=== PATIENT | male | born 1955 | race Asian ===

== ENCOUNTER 2021-04-29 22:34 | Inpatient (IN) | payer BC, MEDICARE, SELFPAY ==
--- NOTE | ~2021-04-29 | XR_ITS ---
EXAMINATION: XR PORTABLE CHEST CLINICAL INFORMATION: NG tube placement. COMPARISON: None. TECHNIQUE: AP portable upright view of the chest FINDINGS: NG tube tip terminates in the body of the stomach. Lungs are clear. No consolidation, pneumothorax, pleural effusion. Cardiac and mediastinal contours are normal. Old left-sided acromioclavicular separation injury. No acute osseous findings. XR/XR chest 1V IMPRESSION: NG tube tip terminates in the body of the stomach.
--- NOTE | ~2021-04-29 | CT_ITS ---
EXAMINATION: CT ABDOMEN AND PELVIS WITHOUT CONTRAST CLINICAL INFORMATION: Abdominal pain. no ostomy output, r/o SBO COMPARISON: None TECHNIQUE: Multidetector volumetric imaging was performed from the superior aspect of the liver through the pubic symphysis. Sagittal and coronal reformatted images were obtained on the technologist's workstation. This CT examination was performed using dose optimization techniques as appropriate, variously including the following: *Automated exposure control *Adjustment of mA and/or kV according to patient size (this includes techniques or standardized protocols for targeted exams where dose is matched to indication/reason for exam; i.e. extremities or head) *Use of iterative reconstruction technique DLP: 536 mGy-cm FINDINGS: LUNG BASES: Three-vessel calcific atherosclerotic disease at the coronary arteries. Mild cardiomegaly. LIVER, GALLBLADDER, AND BILIARY TREE: The liver is normal in size, shape, and attenuation. No focal hepatic lesion or biliary ductal dilatation is present. The gallbladder is unremarkable with no evidence of radiopaque gallstones, gallbladder wall thickening, or obvious pericholecystic inflammatory changes. PANCREAS: Unremarkable. SPLEEN: Unremarkable. ADRENAL GLANDS: Unremarkable. KIDNEYS AND URETERS: There is a staghorn calculus in a lower pole calyx at the left kidney measuring up to 1.7 cm in diameter with an attenuation value of 650 Hounsfield units. This is situated 7.4 cm deep to the skin surface of the left posterior mid axillary line. No additional left-sided renal calculi. A 3 mm calculus is evident in the lower pole the left kidney. No hydronephrosis or hydroureter. Mild bilateral perinephric fat stranding. Multiple small renal hypodensities are noted, incomplete characterized on these images images, measuring up to 1.3 cm in diameter (5 Hounsfield units). No recommend imaging follow-up. BLADDER: Unremarkable. GASTROINTESTINAL TRACT: There is marked dilatation of multiple loops of small bowel in the central abdomen and left abdomen extending to the level of the central pelvis. There is a focal transition point in the deep, central pelvis as seen on image 82/108 of series 3. There is fecalization this small bowel segment as well, measuring up to 4.9 cm in diameter with surrounding fat stranding. Air-fluid levels are evident at the dilated small bowel proximal to this. The distal small bowel and colon are decompressed. Anastomotic shaun are evident in the right lower quadrant. Appendix is normal. Left mid abdominal colostomy is unremarkable. There is fat stranding in the presacral region adjacent to the transition point of the small bowel loop in this region. A small amount of fluid is present in this region. There is a multilocular, nodular focus of mixed soft tissue and fluid attenuation. Presacral and distal sacral margin measuring 6 x 5.7 x 5.6 cm, potentially corresponding to the remnant of a known malignancy. This contacts the posterior margin of the prostate gland. ABDOMINAL WALL: There is a left midabdominal colostomy. No parastomal hernia. There is a ventral abdominal hernia with probable postsurgical changes of a hernia repair. Diastasis recti is noted. Calcifications along the anterior peritoneum in the ventral abdominal wall may be related to prior hernia repair. LYMPH NODES: No appreciable mesenteric or retroperitoneal adenopathy. VASCULAR: Calcific atherosclerosis is present in the abdominal aorta and iliac arteries. No aneurysmal dilatation. PELVIC VISCERA: As noted above, the lesion in the presacral space and abuts the posterior margin of the prostate gland. Prostate gland is normal in size. OSSEOUS STRUCTURES: There is absence of the coccyx and distal margin of the sacrum with a cystic lesion in the expected location of the coccyx. Mild to moderate multilevel degenerative disc disease. No fractures. Mild osteoarthritis in the hips. Calcific tendinitis of the greater trochanters. CT/CT abdomen pelvis wo con IMPRESSION: 1. High-grade small bowel obstruction with the transition point occurring in the deep, central pelvis adjacent to the sacral/presacral cystic and solid lesion. Recommend correlation with cancer history. This obstruction may be due to local involvement by the adjacent lesion or, alternatively, due to scarring and adhesions from posttreatment changes in this region. 2. Bilateral nephrolithiasis. No evidence of obstructive uropathy.
[2021-04-29 22:44] VITALS: BP 138/91; PULSE 80; RESP 18; TEMP 36.6; O2SAT 100; BMI 24.3
[2021-04-29 23:01] LABS: Basophils Percent Auto 0.3 % (0-2); Eosinophils Percent Auto 0.1 % (0-4); Hematocrit 36.5 % (42.0-52.0); Hemoglobin 12.3 g/dl (14.0-18.0); Imm Gran Abs Auto 0.03 X10*3/uL (0.00-0.03); Imm Gran Pct Auto 0.3 % (0.0-0.4); Lymphocytes Absolute Auto 0.3 X10*3/uL (1.2-4.9); Lymphocytes Percent Auto 2.6 % (20-40); MANUAL DIFF FLAG SCAN; Mean Corpuscular HGB Conc 33.7 g/dl (31.0-36.0); Mean Corpuscular Hemoglobin 31.9 pg (27.0-33.0); Mean Corpuscular Volume 94.8 fL (80.0-98.0); Mean Platelet Volume 10.7 fL (9.4-12.4); Monocytes Absolute Auto 0.7 X10*3/uL (0.1-1.2); Monocytes Percent Auto 5.6 % (2-11); Neutrophils Absolute Auto 10.6 x10*3/uL (2.0-8.3); Neutrophils Percent Auto 91.1 % (45-73); Platelet Count 160 X10*3/uL (160-400); Red Blood Count 3.85 X10*6/uL (4.60-5.80); Red Cell Distribution Width 12.1 % (11.0-16.0); SCAN SMEAR FLAG 1; White Blood Count 11.6 X10*3/uL (4.8-10.8)
[2021-04-29 23:17] LABS: Alanine Aminotransferase 17 U/L (0-40); Albumin Level 4.6 g/dL (3.5-5.0); Alkaline Phosphatase 62 U/L (39-117); Anion Gap 17 (12-20); Aspartate Amino Transferase 16 U/L (5-37); Bilirubin Direct 0.3 mg/dL (0.0-0.5); Bilirubin Total 0.8 mg/dL (0.0-1.0); Blood Urea Nitrogen 41 mg/dL (9-16); Calcium 10.2 mg/dL (8.4-10.2); Carbon Dioxide 24 mmol/L (22-29); Chloride 102 mmol/L (96-108); Creatinine Clr Calc Pharmacy 43.5; Estimated Glomerular Filt Rate 45; Glucose Random 205 mg/dL (60-115); Lipase 18 U/L (8-78); Sodium 138 mmol/L (135-145); Total Protein 7.1 g/dL (6.5-8.0)
[2021-04-29 23:23] LABS: SLIDE REVIEW VERIFIED
[2021-04-30] VITALS (8 sets, daily range): BP systolic 122–179; BP diastolic 69–89; PULSE 70–98; RESP 16–20; TEMP 36.5–37.1; O2SAT 96–100
--- NOTE | 2021-04-30 | ECG_ITS ---
Test Reason : ABD PAIN Blood Pressure : / mmHG Vent. Rate : 094 BPM Atrial Rate : 094 BPM P-R Int : 152 ms QRS Dur : 092 ms QT Int : 340 ms P-R-T Axes : 033 -07 048 degrees QTc Int : 425 ms Normal sinus rhythm Minimal voltage criteria for LVH, may be normal variant ( Rolf product ) Borderline ECG When compared with ECG of 25-NOV-2006 20:24, No significant change was found Referred By: Delvin Arce Electronically Signed By:JOSELUIS NICHOLAS MD
--- NOTE | 2021-04-30 00:55 | ED.ABDPAIN ---
HPI - Abdominal Pain General Chief Complaint: Abdominal Pain Stated Complaint: constipation Time Seen by Provider: 04/30/21 00:53 Source: patient Mode of arrival: ambulatory History of Present Illness HPI narrative: 65-year-old male with history of hypertension, diabetes, ostomy after treatment for colon CA in 2008 presents with onset of primarily nausea with 1 episode of vomiting associated with his abdominal discomfort that he describes as crampy and intermittent, and no output in his ostomy (no feces, no air). Otherwise, he denies any fever, chills, shortness of breath, chest pain/palpitations. Related Data Allergies Allergy/AdvReac Type Severity Reaction Status Date / Time No Known Allergies Allergy Verified 04/29/21 22:49 Review of Systems Review of Systems Pertinent positives and negatives as stated in HPI 10 point review of systems is otherwise negative. PMFSH Past Medical History Source: nursing notes reviewed Medical History Colorectal cancer Diabetes HTN (hypertension) Social History Social History Advance Directives: No Physical Exam ED Vital Signs: Vital Signs - 24 hr 04/29/21 22:44 04/30/21 00:41 04/30/21 01:00 Temperature 97.9 F 98.8 F Pulse Rate 80 70 70 Respiratory Rate 18 16 16 Blood Pressure 138/91 H 179/89 H 156/85 H Pulse Oximetry 100 100 04/30/21 02:50 04/30/21 02:52 Temperature Pulse Rate 81 Respiratory Rate 16 16 Blood Pressure 166/83 H Pulse Oximetry 99 BMI result Body Mass Index 24.3 VITAL SIGNS: Reviewed. GENERAL: Well developed, well nourished, in no acute distress. HEAD: Normocephalic/atraumatic EYES: PERRLA, EOMI EARS: Ext canals without abnormality, TMs non-bulging and non-erythematous NOSE: Nares patent bilateral OROPHARYNX: no oral lesions noted, posterior pharynx clear LUNGS: Normal breath sounds. No adventitious sounds or accessory muscle use. SpO2<100> CARDIOVASCULAR: Regular rate and rhythm without noted murmurs ABDOMEN: Soft, tenderness in mid abdomen without rebound non-distended with bowel sounds, ostomy with no stool or air in the bag SKIN: Inspection of the skin reveals no rashes NEUROLOGIC: Alert and oriented x 4. Strength and sensation to light touch were grossly intact x 4. Course Course Course Narrative: 65-year-old male with history and clinical presentation consistent with most likely SBO and doubt cholecystitis or gastritis. Review of all investigations consistent with SBO, lactic acid is likely secondary to the SBO and leukocytosis is consistent with stress response. NG was placed and on review of imaging is in good location. Case discussed with Dr. Wong who will review all investigations and accepts admission. MDM - Abdominal Pain Lab Data Result diagrams: 04/29/21 22:56 04/29/21 22:56 Labs: Lab Results 04/29/21 04/29/21 04/30/21 Range/Units 22:56 22:56 01:06 WBC 11.6 H (4.8-10.8) X10*3/uL RBC 3.85 L (4.60-5.80) X10*6/uL Hgb 12.3 L (14.0-18.0) g/dl Hct 36.5 L (42.0-52.0) % MCV 94.8 (80.0-98.0) fL MCH 31.9 (27.0-33.0) pg MCHC 33.7 (31.0-36.0) g/dl RDW 12.1 (11.0-16.0) % Plt Count 160 (160-400) X10*3/uL MPV 10.7 (9.4-12.4) fL Immature Gran % (Auto) 0.3 (0.0-0.4) % Neut % (Auto) 91.1 H (45-73) % Lymph % (Auto) 2.6 L (20-40) % [place] % (Auto) 5.6 (2-11) % Eos % (Auto) 0.1 (0-4) % Baso % (Auto) 0.3 (0-2) % Lymph # (Auto) 0.3 L (1.2-4.9) X10*3/uL [place] # (Auto) 0.7 (0.1-1.2) X10*3/uL Eos # (Auto) 0.0 (0.0-0.4) X10*3/uL Baso # (Auto) 0.0 (0.0-0.2) X10*3/uL Abs Immat Gran (auto) 0.03 (0.00-0.03) X10*3/uL Absolute Neuts (auto) 10.6 H (2.0-8.3) x10*3/uL Absolute Nucleated RBC 0.000 (0.0-0.012) X10*3/uL Nucleated RBC % (auto) 0.0 (0.0-0.2) /100WBC Smear Tech's Comments VERIFIED Sodium 138 (135-145) mmol/L Potassium 5.0 (3.3-5.1) mmol/L Chloride 102 (96-108) mmol/L Carbon Dioxide 24 (22-29) mmol/L Anion Gap 17 (12-20) BUN 41 H (9-16) mg/dL Creatinine 1.56 H (0.5-1.4) mg/dL Estim Creat Clear Calc 43.5 Estimated GFR 45 Random Glucose 205 H (60-115) mg/dL Lactic Acid (0.5-2.0) mmol/L Calcium 10.2 (8.4-10.2) mg/dL Total Bilirubin 0.8 (0.0-1.0) mg/dL Direct Bilirubin 0.3 (0.0-0.5) mg/dL AST 16 (5-37) U/L ALT 17 (0-40) U/L Alkaline Phosphatase 62 (39-117) U/L Total Protein 7.1 (6.5-8.0) g/dL Albumin 4.6 (3.5-5.0) g/dL Lipase 18 (8-78) U/L Urine Color Urine Appearance Urine pH (5.0-8.0) Ur Specific [place] (1.005-1.025) Urine Protein (NEG-TRACE) MG/DL Urine Glucose (UA) (NEG) MG/DL Urine Ketones (NEG) MG/DL Urine Blood (NEG) Urine Nitrite (NEG) Ur Leukocyte Esterase (NEG) COVID-19 ([facility]REE) Negative (Negative) COVID-19 Clin Com See Note 04/30/21 04/30/21 Range/Units 01:09 03:29 WBC (4.8-10.8) X10*3/uL RBC (4.60-5.80) X10*6/uL Hgb (14.0-18.0) g/dl Hct (42.0-52.0) % MCV (80.0-98.0) fL MCH (27.0-33.0) pg MCHC (31.0-36.0) g/dl RDW (11.0-16.0) % Plt Count (160-400) X10*3/uL MPV (9.4-12.4) fL Immature Gran % (Auto) (0.0-0.4) % Neut % (Auto) (45-73) % Lymph % (Auto) (20-40) % [place] % (Auto) (2-11) % Eos % (Auto) (0-4) % Baso % (Auto) (0-2) % Lymph # (Auto) (1.2-4.9) X10*3/uL [place] # (Auto) (0.1-1.2) X10*3/uL Eos # (Auto) (0.0-0.4) X10*3/uL Baso # (Auto) (0.0-0.2) X10*3/uL Abs Immat Gran (auto) (0.00-0.03) X10*3/uL Absolute Neuts (auto) (2.0-8.3) x10*3/uL Absolute Nucleated RBC (0.0-0.012) X10*3/uL Nucleated RBC % (auto) (0.0-0.2) /100WBC Smear Tech's Comments Sodium (135-145) mmol/L Potassium (3.3-5.1) mmol/L Chloride (96-108) mmol/L Carbon Dioxide (22-29) mmol/L Anion Gap (12-20) BUN (9-16) mg/dL Creatinine (0.5-1.4) mg/dL Estim Creat Clear Calc Estimated GFR Random Glucose (60-115) mg/dL Lactic Acid 1.7 (0.5-2.0) mmol/L Calcium (8.4-10.2) mg/dL Total Bilirubin (0.0-1.0) mg/dL Direct Bilirubin (0.0-0.5) mg/dL AST (5-37) U/L ALT (0-40) U/L Alkaline Phosphatase (39-117) U/L Total Protein (6.5-8.0) g/dL Albumin (3.5-5.0) g/dL Lipase (8-78) U/L Urine Color YELLOW Urine Appearance CLEAR Urine pH 5.5 (5.0-8.0) Ur Specific [place] 1.025 (1.005-1.025) Urine Protein TRACE (NEG-TRACE) MG/DL Urine Glucose (UA) NEG (NEG) MG/DL Urine Ketones NEG (NEG) MG/DL Urine Blood NEG (NEG) Urine Nitrite NEG (NEG) Ur Leukocyte Esterase NEG (NEG) COVID-19 (ANDREE) (Negative) COVID-19 Clin Com Discharge Plan Discharge Clinical Impression: Small bowel obstruction, Diabetes, Hypertension Patient Disposition: Admitted As Inpatient
[2021-04-30] MEDS: 0.9 % Sodium Chloride 1,000 ML 999 ML IV (01:13)
[2021-04-30 01:25] LABS: Lactic Acid 1.7 mmol/L (0.5-2.0)
[2021-04-30 01:33] LABS: COVID-19 Test Negative (Negative)
[2021-04-30] MEDS: HYDROmorphone HCl 0.5 MG/0.5 ML SYRINGE 0.25 MG IVPUSH (02:52)
[2021-04-30] MEDS: ondansetron HCL 4 MG/2 ML VIAL IVPUSH ×2 (03:01→15:05)
--- NOTE | 2021-04-30 03:16 | PC.NURSE ---
NG tube successfully placed by Roosevelt MELENDREZ, Karen MELENDREZ and Yemi MELENDREZ. Pt tolerated procedure well. XR ordered to confirm NG tube placement.
[2021-04-30 03:42] LABS: Appearance Urine CLEAR; Color Urine YELLOW; Glucose Urine UA NEG (NEG); Leukocyte Esterase Urine NEG (NEG); Nitrite Urine NEG (NEG); PH 5.5 (5.0-8.0); Specific Gravity - Urine 1.025 (1.005-1.025); Urine Blood NEG (NEG); Urine Ketones NEG (NEG); Urine Protein TRACE MG/DL (NEG-TRACE)
[2021-04-30] MEDS: 0.9 % Sodium Chloride 1,000 ML 100 ML IVCONT ×2 (04:17→16:07)
--- NOTE | 2021-04-30 05:00 | PC.NURSE ---
plan is for pt to be admitted to hospital. pt aware of plan of care and has no questions or concerns at this time
[2021-04-30] MEDS: Morphine Sulfate 2 MG/ML CARTRIDGE 0.5 MG IVPUSH (05:49)
--- NOTE | 2021-04-30 07:57 | PC.NURSE ---
Pt alert and oriented, reports pain 1/10 at this time, intermittent in nature. NG to right nare patent drained 800ml of green gastric contents. Able to stand to void. NS at 100ml/hr. Skin color normal for ethnicity, warm and dry. Agreeable with plan ofor admission. Dr Wong to bedside this morning. Pt continues to be NPO, ice chips given.
--- NOTE | 2021-04-30 08:08 | PHA.MEDREC ---
Pharmacy Consult ? Medication Reconciliation Pharmacy has reviewed the medication reconciliation completed by Yemi. Patient is also on latanoprost, multivitamin and Preservision. Medications added to home list. Charmaine Toribio, KaroD
--- NOTE | 2021-04-30 08:53 | P.HPGS_ITS ---
History of Present Illness History of Present Illness Date of Service: 05/01/21 Chief complaint: SBO, CP Narrative: Paul Bella is a 65 year old male who came in last night because of diffuse abdominal pain. He says he says this started about 36 hours ago. He describes his crampy but seemed to get worse yesterday. He has a history of rectal cancer and had undergone an APR in [facility] in [place] in 2008. He had undergone neoadjuvant chemotherapy and radiation prior to that. He says that he had multiple rectal surgeries 3rd procedure because of complications with the perineal wound. He said he has had no significant output from his colostomy since yesterday. He said he had been following an oncologist in [facility] and says that he had seen him the last time probably about 3 months ago. He says that he seemed to have been doing well for so many years. He also says that he has had history of MIs in the past. He says he is being followed by a perinatal instructor in [place]. Review of Systems Constitutional: Constitutional: Denies chills and Denies fever(s) Cardiovascular: Cardiovascular: Denies chest pain, Denies dyspnea and Denies dyspnea on exertion Respiratory: Respiratory: Denies cough, Denies dyspnea and Denies dyspnea on exertion Gastrointestinal: Gastrointestinal: Denies hematochezia and Denies change in bowel habits Comments: Has end-colostomy Genitourinary: Genitourinary: Denies hematuria and Denies difficulty urinating Musculoskeletal: Musculoskeletal: Denies back pain and Denies limited range of motion Neurologic: Denies focal weakness and Denies convulsions Psychiatric: Psychiatric: Denies depression and Denies mood swings [facility] Past Medical History Medical History (Updated 04/30/21 @ 08:57 by Lorne Wong MD) Colorectal cancer Coronary artery disease Diabetes History of rectal cancer HTN (hypertension) Surgical History Surgical History (Updated 04/30/21 @ 08:58 by Lorne Wong MD) History of rectal surgery Social History Social History (Updated 04/30/21 @ 09:21 by Delvin Arce MD) Alcohol intake: current Alcohol intake frequency: holidays/special occasions only Patient Tobacco Use Status: Never used Tobacco Use of substances other than those prescribed or required for medical reasons: No Advance Directives: No service: No Current occupational status: employed Meds Allergies Allergy/AdvReac Type Severity Reaction Status Date / Time No Known Allergies Allergy Verified 04/29/21 22:49 Active Medications: Current Medications Sodium Chloride (Ns) 1,000 mls @ 100 mls/hr IVCONT .Q10H [facility] Last Admin: 04/30/21 04:17 Dose: 100 mls/hr Documented by: Morphine Sulfate (Morphine Sulfate 2 Mg/Ml Cartridge) 0.5 mg IVPUSH Q4H PRN; Protocol PRN Reason: Pain, Severe (Pain Scale 7-10) Last Admin: 04/30/21 05:49 Dose: 0.5 mg Documented by: Pharmacy Consult (Consult Rx Perform Med Rec) 1 each MISCELLANE ONCE PRN PRN Reason: Consult order Sodium Chloride (0.9 % Sodium Chloride Flush 3 Ml Syringe) 3 ml IVFLUSH QSHIFT [facility] Last Admin: 04/30/21 07:59 Dose: Not Given Documented by: Home Medications Medication Instructions Recorded Confirmed Last Taken Type aspirin 81 mg tablet 81 mg PO DAILY 04/30/21 04/30/21 1 Day Ago History ~04/29/21 atorvastatin 40 mg tablet 1 tab PO DAILY 04/30/21 04/30/21 1 Day Ago History ~04/29/21 clopidogrel 75 mg tablet 1 tab PO DAILY 04/30/21 04/30/21 1 Day Ago History ~04/29/21 latanoprost 0.005 % eye drops 1 drp OPHTHALMIC (EYE) BEDTIME 04/30/21 04/30/21 04/28/21 History lisinopril 40 mg tablet 1 tab PO DAILY 04/30/21 04/30/21 1 Day Ago History ~04/29/21 metformin 1,000 mg tablet 1 tab PO BID 04/30/21 04/30/21 1 Day Ago History ~04/29/21 metoprolol tartrate 50 mg tablet 25 mg PO QPM 04/30/21 04/30/21 1 Day Ago History ~04/29/21 multivitamin 1 tab PO DAILY 04/30/21 04/30/21 04/29/21 History sitagliptin 100 mg tablet (Januvia) 1 tab PO BEDTIME 04/30/21 04/30/21 04/28/21 History vitamins A,C,K-mifj-tezbkt 14,320 1 cap PO BID 04/30/21 04/30/21 04/29/21 History unit-226 mg-200 unit capsule (PreserVision AREDS) Physical Exam Vital Signs: Vital Signs: Last Vital Signs Temp 98.8 F 04/30/21 00:41 Pulse 92 04/30/21 04:00 Resp 16 04/30/21 04:00 BP 166/83 H 04/30/21 02:50 Pulse Ox 96 04/30/21 04:00 BMI result Body Mass Index 24.3 Const: Other: NG tube in place General: comfortable and no acute distress Orientation/consciousness: patient oriented x3 Neck: Neck: Yes no lymphadenopathy Resp: Auscultation: clear to auscultation bilaterally Cardio: Rhythm: regular rhythm GI: Other: Abdomen minimally distended now, Colostomy on the left side, 2nd output Palpation (GI): Soft to palpation, nontender (Mild diffuse), no guarding and not rigid Neuro: General: patient oriented x3 Results Results Labs: Short CBC 04/29/21 Range/Units 22:56 WBC 11.6 H (4.8-10.8) X10*3/uL Hgb 12.3 L (14.0-18.0) g/dl Hct 36.5 L (42.0-52.0) % Plt Count 160 (160-400) X10*3/uL BMP 04/29/21 22:56 Sodium 138 Potassium 5.0 Chloride 102 Carbon Dioxide 24 BUN 41 H Creatinine 1.56 H Calcium 10.2 Liver Function 04/29/21 Range/Units 22:56 Total Bilirubin 0.8 (0.0-1.0) mg/dL Direct Bilirubin 0.3 (0.0-0.5) mg/dL AST 16 (5-37) U/L ALT 17 (0-40) U/L Alkaline Phosphatase 62 (39-117) U/L Albumin 4.6 (3.5-5.0) g/dL Urine 04/30/21 Range/Units 03:29 Urine Color YELLOW Urine Appearance CLEAR Urine pH 5.5 (5.0-8.0) Ur Specific [place] 1.025 (1.005-1.025) Urine Protein TRACE (NEG-TRACE) MG/DL Urine Glucose (UA) NEG (NEG) MG/DL Abdomen CT scan report/results: report reviewed and image reviewed CT scan - pelvis: report reviewed and image reviewed Assessment and Plan (1) Small bowel obstruction: Status: Acute Review of his CT scan shows that he has small-bowel obstruction with fecalization because of a loop of distal small bowel that is tethered to what appears to be a tumor in the presacral area. This may represent a recurrence of his rectal cancer. He has improved significantly after NG tube insertion and had large amounts of output. He appears more comfortable now and says he only has some periodic waves of pain. He may require surgery if thisobstruction does not resolve especially as this seems to be in secondary to a recurrence of his rectal malignancy. His CEA level is however normal. He may need to have a loop ileostomy proximal to the point of obstruction if this does not resolve, and if we are unable to release these small bowel loops from the pelvis. In the meantime, we will hydrate him aggressively as his BUN and creatinine are elevated. I have consulted the hospitalist service because of his no medical problems. I am going to reach out to his oncologist to get his records from [facility] although he had his surgery in [address] [facility]. I had a long discussion with him about the plan as above. He is comfortable with this and he seems to understand well. He said he is hoping that he will be able to go home or any surgery if possible. He has a history of coronary disease and does describe some occasional chest pain. He says he is scheduled to have a stress test in [place]. As per the hospitalist, we consult the perinatal instructor here. (2) History of rectal surgery: Status: Acute Quality Stroke Does the patient have a stroke diagnosis?: No VTE Prior VTE?: No VTE Risk Level:: Medical - moderate - high VTE Device Contraindication: N/A - Device Ordered VTE Drug Contraindication: N/A - Med Ordered Procedures Date of Service Date of Service: 04/30/21
--- NOTE | 2021-04-30 09:16 | P.CONHOSP_ITS ---
History of Present Illness Data of Consult Service Date: 04/30/21 Primary Care Provider: Julio Cesar Swan MD HPI Reason for consult: medical management, history of cad, dm, htn This is a 65 year old male with a PMH of Colorectal Ca s/p resection in 2008, CAD s/p MO + PCI in the with 2 stents, DM, HLD, HTN who presents to the hospital with complaints of abdominal pain, nausea and vomiting of several days duration. He has been diagnosed with a high grade small bowel obstruction secondary - possibly secondary to a reoccurance of his cancer. He has had a NG tube placed and has been admitted under the general surgical services. Medical consult requested for co-management of his chronic medical issues. Patient is seen and examined in the ED. He reports that his abdominal symptoms have improved after placement of his NG tube. In regards to his cardiac history, he reports that he had an MO and has 2 stents placed in the . He reports that he is on aspirin/plavix. He further expands that over the last 1 year, he has been having exertional chest pain lasting about 1-2 minutes and resolves after he rests. He reports that he has had a recent EKG done as an outpatient and was scheduled for a stress test this week. He denies any current chest pain. Review of Systems Review of Systems: negative except HPI [facility] Medical History (Updated 04/30/21 @ 08:57 by Lorne Wong MD) Colorectal cancer Coronary artery disease Diabetes History of rectal cancer HTN (hypertension) Surgical History (Updated 04/30/21 @ 08:58 by Lorne Wong MD) History of rectal surgery Social History (Updated 04/30/21 @ 09:21 by Delvin Arce MD) Alcohol intake: current Alcohol intake frequency: holidays/special occasions only Patient Tobacco Use Status: Never used Tobacco Use of substances other than those prescribed or required for medical reasons: No Advance Directives: No Meds Allergies Allergy/AdvReac Type Severity Reaction Status Date / Time No Known Allergies Allergy Verified 04/29/21 22:49 Active Medications: Current Medications Sodium Chloride (Ns) 1,000 mls @ 100 mls/hr IVCONT .Q10H [facility] Last Admin: 04/30/21 04:17 Dose: 100 mls/hr Documented by: Morphine Sulfate (Morphine Sulfate 2 Mg/Ml Cartridge) 0.5 mg IVPUSH Q4H PRN; Protocol PRN Reason: Pain, Severe (Pain Scale 7-10) Last Admin: 04/30/21 05:49 Dose: 0.5 mg Documented by: Pharmacy Consult (Consult Rx Perform Med Rec) 1 each MISCELLANE ONCE PRN PRN Reason: Consult order Sodium Chloride (0.9 % Sodium Chloride Flush 3 Ml Syringe) 3 ml IVFLUSH QSHIFT [facility] Last Admin: 04/30/21 07:59 Dose: Not Given Documented by: Home Medications Medication Instructions Recorded Confirmed Last Taken Type aspirin 81 mg tablet 81 mg PO DAILY 04/30/21 04/30/21 1 Day Ago History ~04/29/21 atorvastatin 40 mg tablet 1 tab PO DAILY 04/30/21 04/30/21 1 Day Ago History ~04/29/21 clopidogrel 75 mg tablet 1 tab PO DAILY 04/30/21 04/30/21 1 Day Ago History ~04/29/21 latanoprost 0.005 % eye drops 1 drp OPHTHALMIC (EYE) BEDTIME 04/30/21 04/30/21 04/28/21 History lisinopril 40 mg tablet 1 tab PO DAILY 04/30/21 04/30/21 1 Day Ago History ~04/29/21 metformin 1,000 mg tablet 1 tab PO BID 04/30/21 04/30/21 1 Day Ago History ~04/29/21 metoprolol tartrate 50 mg tablet 25 mg PO QPM 04/30/21 04/30/21 1 Day Ago History ~04/29/21 multivitamin 1 tab PO DAILY 04/30/21 04/30/21 04/29/21 History sitagliptin 100 mg tablet (Januvia) 1 tab PO BEDTIME 04/30/21 04/30/21 04/28/21 History vitamins A,C,Y-lszx-orwneu 14,320 1 cap PO BID 04/30/21 04/30/21 04/29/21 History unit-226 mg-200 unit capsule (PreserVision AREDS) Physical Exam Vital Signs and Narrative: Vital Signs: Last Vital Signs Temp 98.8 F 04/30/21 00:41 Pulse 92 04/30/21 04:00 Resp 16 04/30/21 04:00 BP 166/83 H 04/30/21 02:50 Pulse Ox 96 04/30/21 04:00 BMI result Body Mass Index 24.3 Const: Other: Constitutional - Awake and Alert, No apparent distress Eyes - PERRLA, EOMI Cardiovascular - S1S2, RRR, No edema Respiratory - Normal lung expansion, Normal respiratory effort, No respiratory distress, CTA bilaterally Gastrointestinal - mildly distended with minimal diffuse tenderness; L sided colostomy; NG with bilious output - No CVA tenderness Extremities - no calf tenderness bilaterally, no swelling Musculoskeletal - Normal inspection, normal ROM Skin - Warm/Dry Neurological - Alert & oriented x3, No focal deficit Psychological - Appropriate affect Results Labs CBC and Chem 7: 04/29/21 22:56 04/29/21 22:56 Labs: Laboratory Results - last 24 hr 04/29/21 04/29/21 04/30/21 22:56 22:56 01:06 MCV 94.8 MCH 31.9 MCHC 33.7 RDW 12.1 Plt Count 160 MPV 10.7 Immature Gran % (Auto) 0.3 Neut % (Auto) 91.1 H Lymph % (Auto) 2.6 L [place] % (Auto) 5.6 Eos % (Auto) 0.1 Baso % (Auto) 0.3 Lymph # (Auto) 0.3 L [place] # (Auto) 0.7 Eos # (Auto) 0.0 Baso # (Auto) 0.0 Abs Immat Gran (auto) 0.03 Absolute Neuts (auto) 10.6 H Absolute Nucleated RBC 0.000 Nucleated RBC % (auto) 0.0 Smear Tech's Comments VERIFIED Anion Gap 17 Estim Creat Clear Calc 43.5 Estimated GFR 45 Random Glucose 205 H Lactic Acid Calcium 10.2 Total Bilirubin 0.8 Direct Bilirubin 0.3 AST 16 ALT 17 Alkaline Phosphatase 62 Total Protein 7.1 Albumin 4.6 Lipase 18 Carcinoembryonic Ag 1.40 Urine Color Urine Appearance Urine pH Ur Specific [place] Urine Protein Urine Glucose (UA) Urine Ketones Urine Blood Urine Nitrite Ur Leukocyte Esterase COVID-19 (ANDREE) Negative COVID-19 Clin Com See Note 04/30/21 04/30/21 01:09 03:29 MCV MCH MCHC RDW Plt Count MPV Immature Gran % (Auto) Neut % (Auto) Lymph % (Auto) [place] % (Auto) Eos % (Auto) Baso % (Auto) Lymph # (Auto) [place] # (Auto) Eos # (Auto) Baso # (Auto) Abs Immat Gran (auto) Absolute Neuts (auto) Absolute Nucleated RBC Nucleated RBC % (auto) Smear Tech's Comments Anion Gap Estim Creat Clear Calc Estimated GFR Random Glucose Lactic Acid 1.7 Calcium Total Bilirubin Direct Bilirubin AST ALT Alkaline Phosphatase Total Protein Albumin Lipase Carcinoembryonic Ag Urine Color YELLOW Urine Appearance CLEAR Urine pH 5.5 Ur Specific [place] 1.025 Urine Protein TRACE Urine Glucose (UA) NEG Urine Ketones NEG Urine Blood NEG Urine Nitrite NEG Ur Leukocyte Esterase NEG COVID-19 (ANDREE) COVID-19 Clin Com Imaging Radiologist's Impressions: Impressions Abdomen/Pelvis CT 04/30/21 02:35 IMPRESSION: 1. High-grade small bowel obstruction with the transition point occurring in the deep, central pelvis adjacent to the sacral/presacral cystic and solid lesion. Recommend correlation with cancer history. This obstruction may be due to local involvement by the adjacent lesion or, alternatively, due to scarring and adhesions from posttreatment changes in this region. 2. Bilateral nephrolithiasis. No evidence of obstructive uropathy. Chest X-Ray 04/30/21 03:20 IMPRESSION: NG tube tip terminates in the body of the stomach. Assessment and Plan (1) Coronary artery disease: Status: Acute (2) Diabetes: Status: Acute (3) Hypertension: Status: Acute Plan This is a 65 year old male with a PMH of Colorectal Ca s/p resection in 2008, CAD s/p MO + PCI in the with 2 stents, DM, HLD, HTN who presents to the hospital with complaints of abdominal pain, nausea and vomiting of several days duration. He has been diagnosed with a high grade small bowel obstruction secondary - possibly secondary to a reoccurance of his cancer. Medical consult requested for medical management. 1. CAD s/p MO + PCI with 2 stents (in the ) He endorses anginal symptoms x 1 year and was planned for outpatient stress test Given that he may need operative repair of his SBO -- will get cardiology consult for pre-operative optimization Will check Echo and EKG To resume DAPT when able (currently has NG in place) 2. DM on oral meds at home, which will be held POC q6 hours with sliding scale 3. HTN mildly elevated monitor for now and if needed will order IV meds 4. High grade SBO suspected secondary to pelvic mass (possible reoccurrence of his colorectal Ca) mgmt per Gen Surg. Will Follow along with you.
--- NOTE | 2021-04-30 09:58 | MHC.CM.PN ---
Met with patient in regards to discharge planning. Patient lives alone, ambulates independently and had no services prior to coming to the hospital. No services anticipated to be needed because patient is not homebound. PCP verified. No HCP on file. Information provided about HCP. Patient not interested in completing one at this time. Patient received 3 Pfizer vaccines. Patient will arrange transport home when medically stable. Continue to monitor for d/c needs.
--- NOTE | 2021-04-30 13:19 | P.CONCA_ITS ---
History of Present Illness History of Present Illness Date of Service: 04/30/21 Chief complaint: SBO, CP Narrative: 65-year-old gentleman with background history of coronary disease with angioplasty in . He also has history of colon cancer started for her ejection with colostomy. He is presenting with small-bowel obstruction with abdominal pain and nausea vomiting. He has an NG tube in place right now. Been experiencing some exertional chest pain. This happens at extreme exercise when he lifts heavy weight. he was being worked up by [facility] for this. He did not have any change in pattern of his angina and mostly this is stable angina. In particular no current at rest. [facility] Past Medical History Medical History (Updated 04/30/21 @ 08:57 by Lorne Wong MD) Colorectal cancer Coronary artery disease Diabetes History of rectal cancer HTN (hypertension) Surgical History Surgical History (Updated 04/30/21 @ 08:58 by Lorne Wong MD) History of rectal surgery Social History Social History (Updated 04/30/21 @ 09:21 by Delvin Arce MD) Alcohol intake: current Alcohol intake frequency: holidays/special occasions only Patient Tobacco Use Status: Never used Tobacco Use of substances other than those prescribed or required for medical reasons: No Advance Directives: No service: No Current occupational status: employed Meds Allergies Allergy/AdvReac Type Severity Reaction Status Date / Time No Known Allergies Allergy Verified 04/29/21 22:49 Active Medications: Current Medications Sodium Chloride (Ns) 1,000 mls @ 100 mls/hr IVCONT .Q10H [facility] Last Admin: 04/30/21 04:17 Dose: 100 mls/hr Documented by: Morphine Sulfate (Morphine Sulfate 2 Mg/Ml Cartridge) 0.5 mg IVPUSH Q4H PRN; Protocol PRN Reason: Pain, Severe (Pain Scale 7-10) Last Admin: 04/30/21 05:49 Dose: 0.5 mg Documented by: Pharmacy Consult (Consult Rx Perform Med Rec) 1 each MISCELLANE ONCE PRN PRN Reason: Consult order Sodium Chloride (0.9 % Sodium Chloride Flush 3 Ml Syringe) 3 ml IVFLUSH QSHIFT [facility] Last Admin: 04/30/21 07:59 Dose: Not Given Documented by: Home Medications Medication Instructions Recorded Confirmed Last Taken Type aspirin 81 mg tablet 81 mg PO DAILY 04/30/21 04/30/21 1 Day Ago History ~04/29/21 atorvastatin 40 mg tablet 1 tab PO DAILY 04/30/21 04/30/21 1 Day Ago History ~04/29/21 clopidogrel 75 mg tablet 1 tab PO DAILY 04/30/21 04/30/21 1 Day Ago History ~04/29/21 latanoprost 0.005 % eye drops 1 drp OPHTHALMIC (EYE) BEDTIME 04/30/21 04/30/21 04/28/21 History lisinopril 40 mg tablet 1 tab PO DAILY 04/30/21 04/30/21 1 Day Ago History ~04/29/21 metformin 1,000 mg tablet 1 tab PO BID 04/30/21 04/30/21 1 Day Ago History ~04/29/21 metoprolol tartrate 50 mg tablet 25 mg PO QPM 04/30/21 04/30/21 1 Day Ago History ~04/29/21 multivitamin 1 tab PO DAILY 04/30/21 04/30/21 04/29/21 History sitagliptin 100 mg tablet (Januvia) 1 tab PO BEDTIME 04/30/21 04/30/21 04/28/21 History vitamins A,C,Z-czaf-vepkee 14,320 1 cap PO BID 04/30/21 04/30/21 04/29/21 History unit-226 mg-200 unit capsule (PreserVision AREDS) Physical Exam Vital Signs: Vital Signs: Last Vital Signs Temp 98.8 F 04/30/21 00:41 Pulse 92 04/30/21 04:00 Resp 16 04/30/21 04:00 BP 166/83 H 04/30/21 02:50 Pulse Ox 96 04/30/21 04:00 BMI result Body Mass Index 24.3 GENERAL APPEARANCE: NG tube in place. NECK: no carotid bruit, no jugular venous distention. SKIN: no suspicious lesions, warm and dry. HEART: no murmurs, regular rate and rhythm. LUNGS: clear to auscultation bilaterally. ABDOMEN: soft, nontender. EXTREMITIES: no edema. PERIPHERAL PULSES: equal. NEUROLOGIC: No gross deficits, AAO X 3 Objective Labs and Meds Result diagrams: 04/29/21 22:56 04/29/21 22:56 Lab results: Laboratory Results - last 24 hr 04/29/21 04/29/21 04/30/21 22:56 22:56 01:06 WBC 11.6 H RBC 3.85 L Hgb 12.3 L Hct 36.5 L MCV 94.8 MCH 31.9 MCHC 33.7 RDW 12.1 Plt Count 160 MPV 10.7 Immature Gran % (Auto) 0.3 Neut % (Auto) 91.1 H Lymph % (Auto) 2.6 L [place] % (Auto) 5.6 Eos % (Auto) 0.1 Baso % (Auto) 0.3 Lymph # (Auto) 0.3 L [place] # (Auto) 0.7 Eos # (Auto) 0.0 Baso # (Auto) 0.0 Abs Immat Gran (auto) 0.03 Absolute Neuts (auto) 10.6 H Absolute Nucleated RBC 0.000 Nucleated RBC % (auto) 0.0 Smear Tech's Comments VERIFIED Sodium 138 Potassium 5.0 Chloride 102 Carbon Dioxide 24 Anion Gap 17 BUN 41 H Creatinine 1.56 H Estim Creat Clear Calc 43.5 Estimated GFR 45 Random Glucose 205 H Lactic Acid Calcium 10.2 Total Bilirubin 0.8 Direct Bilirubin 0.3 AST 16 ALT 17 Alkaline Phosphatase 62 Total Protein 7.1 Albumin 4.6 Lipase 18 Carcinoembryonic Ag 1.40 Urine Color Urine Appearance Urine pH Ur Specific [place] Urine Protein Urine Glucose (UA) Urine Ketones Urine Blood Urine Nitrite Ur Leukocyte Esterase COVID-19 (ANDREE) Negative COVID-19 Clin Com See Note 04/30/21 04/30/21 01:09 03:29 WBC RBC Hgb Hct MCV MCH MCHC RDW Plt Count MPV Immature Gran % (Auto) Neut % (Auto) Lymph % (Auto) [place] % (Auto) Eos % (Auto) Baso % (Auto) Lymph # (Auto) [place] # (Auto) Eos # (Auto) Baso # (Auto) Abs Immat Gran (auto) Absolute Neuts (auto) Absolute Nucleated RBC Nucleated RBC % (auto) Smear Tech's Comments Sodium Potassium Chloride Carbon Dioxide Anion Gap BUN Creatinine Estim Creat Clear Calc Estimated GFR Random Glucose Lactic Acid 1.7 Calcium Total Bilirubin Direct Bilirubin AST ALT Alkaline Phosphatase Total Protein Albumin Lipase Carcinoembryonic Ag Urine Color YELLOW Urine Appearance CLEAR Urine pH 5.5 Ur Specific [place] 1.025 Urine Protein TRACE Urine Glucose (UA) NEG Urine Ketones NEG Urine Blood NEG Urine Nitrite NEG Ur Leukocyte Esterase NEG COVID-19 (ANDREE) COVID-19 Clin Com Imaging Radiologist's impression: Impressions Abdomen/Pelvis CT 04/30/21 02:35 IMPRESSION: 1. High-grade small bowel obstruction with the transition point occurring in the deep, central pelvis adjacent to the sacral/presacral cystic and solid lesion. Recommend correlation with cancer history. This obstruction may be due to local involvement by the adjacent lesion or, alternatively, due to scarring and adhesions from posttreatment changes in this region. 2. Bilateral nephrolithiasis. No evidence of obstructive uropathy. Chest X-Ray 04/30/21 03:20 IMPRESSION: NG tube tip terminates in the body of the stomach. Assessment and Plan (1) Coronary artery disease: Status: Acute (2) Small bowel obstruction: Status: Acute Plan 65-year-old gentleman who is presenting for small bowel obstruction. He has history of coronary disease with previous angioplasty. He has been experiencing exertional chest discomfort but that is at extreme exercise. Overall his clinical story Sounds like stable angina. Blood pressure is elevated I think he needs better blood pressure control. While he is NPO he should be on 5 mg IV metoprolol every 8 hours. can also use nitroglycerin paste. As obstruction improves his home medication should be resumed. Overall he is not high risk for surgery or any procedures and I think he is intermediate risk right now. Thank you for allowing me to participate in the care of your patient. Please feel free to contact me if you have any questions. Procedures Date of Service Date of Service: 04/30/21
--- NOTE | 2021-04-30 13:49 | PC.NURSE ---
nausea, reached out for zofran, denies pain but reports pressure. at bedside. NG continues to drain dark green gastric contents
--- NOTE | 2021-04-30 14:00 | CA_ITS ---
Transthoracic Echocardiogram Patient (Last, First, Middle): Paul Bella, Gender: Male Date of : 1955 Age: 65 Procedure Date: 04/30/2021 Procedure Type: Transthoracic Echocardiogram Location: ER Height: 170.18 cm Weight: 70.31 kg BSA: 1.81 m2 Heart Rate: bpm BP: 166 / 83 mmHg Group Practice Pediatrician: YR/TO Referring MD: Delvin Arce MD Symptoms: history of cad, anginal symptoms x 1 year; Study Quality: Fair Conclusions: - Normal left ventricular size and systolic function. There is mildly increased left ventricular wall thickness. The visually estimated ejection fraction is between 60-65%. - Normal right ventricular cavity size and systolic function. - There is mild dilatation of the sinuses of Valsalva measuring 3.90 cm and mild dilatation of the ascending aorta measuring 3.60 cm. Findings Left Ventricle Normal left ventricular size and systolic function. There is mildly increased left ventricular wall thickness. The visually estimated ejection fraction is between 60-65%. There is no evidence of regional wall motion abnormalities. Diastolic function is normal for age. Right Ventricle Normal right ventricular cavity size and systolic function. Atria Both atria are normal in size. Aortic Valve There is a normal trileaflet aortic valve. There is mild calcification of the aortic valve. There is mild thickening of the aortic valve. There is no aortic valve stenosis. There is no aortic valve regurgitation. Mitral Valve There is moderate mitral annular calcification. There is no mitral valve regurgitation. There is no mitral valve stenosis. Pulmonic Valve The pulmonic valve is likely normal. Tricuspid Valve Normal tricuspid valve structure. There is trace tricuspid valve regurgitation. Normal right atrial pressure. There is no evidence of pulmonary hypertension. Great Vessels There is mild dilatation of the sinuses of Valsalva measuring 3.90 cm and mild dilatation of the ascending aorta measuring 3.60 cm. The visualized portions of the pulmonary artery and branches are normal. Venous The inferior vena cava is normal in size and collapses greater than 50% with inspiration. Pericardium/Pleural There is no evidence of pericardial effusion. Prior Study Comparison No prior study available for comparison. Measurements 2D Linear Measurements IVSd: 1.18 0.6-0.9/0.6-1.0 cm LVIDd: 4.01 3.9-5.3/4.2-5.9 cm LVIDd Index: 2.22 2.4-3.2/2.2-3.1 cm/m2 LVIDs: 2.27 2.0-3.6 cm LVPWd: 1.07 0.7-1.1 cm LA Diam: 4.00 2.7-3.8/3.0-4.0 cm LAIDs Index: 2.21 1.5-2.3 cm/m2 LV Mass: 188.07 67-162/88-224 g LV Mass Index: 103.90 43-95/49-115 g/m2 LVOT Diam: 2.20 3.0+(-)1.3 cm 2D Systolic Function EF 4C: 61.30 >55% EF 2C: 54.60 >55% EF BiP: 58.60 >55% Mitral Valve MV Pk E: 0.59 MV PK A: 0.87 MV Decel Time: 161.00 E/A: 0.70 E'Lateral: 10.00 E'Medial: 7.72 E/E' Med: 7.70 E/E' Lat: 5.90 PHT: 47.00 MVA PHT: 4.68 Decel [place]: 3.70 Aortic Valve AoV Pk Michael: 1.58 AoV Mn Michael: 0.86 AoV VTI: 0.20 AoV Pk Grad: 10.00 Aov Mn Grad: 4.00 JOEL Cont.VTI: 2.78 LVOT LVOT Pk Michael: 0.97 LVOT Mn Michael: 0.64 LVOT VTI: 0.14 LVOT Pk Grad: 4.00 LVOT Mn Grad: 2.00 LVOT Diam: 2.20 LVOT Area: 3.80 Diastolic Function MV Pk E: 0.59 MV Pk A: 0.87 E/A: 0.70 E'Medial: 7.72 E/E' Med: 7.70 E' Laterial: 10.00 E/E' Lat: 5.90 Right Ventricle TAPSE (mm): 18.70 TVS' Michael: 18.10 Tricuspid Valve TR Pk Michael: 1.67 TR Pk Grad: 11.00 RA Press: 3.00 RVSP: 14.00 Great Vessels Aorta Sinus of Valsalva: 3.90 2.0-3.[address] [place]: 3.20 1.7-3.4 cm Ao Asc: 3.60 2.1-3.4 cm Updated in Other Vendor System with Status of Final Francisco Ro MD electronically signed on 05/01/2021 3:12:54 AM with status of Final
--- NOTE | 2021-04-30 16:14 | PM.EVENT ---
Event Note Date of Service: 04/30/21 Event Note: Seen on follow-up rounds Says he feels much better Abdomen is not distended anymore and soft Denies pain but had vomiting earlier - he says the NG tube was not working Keep on NG tube to low wall suction Exam now much improved CT scan again reviewed with radiologist - no obvious solid mass in the perineum Could be a mesh in the pelvic floor causing fluid collection and tethering a small bowel loop Continue NG tube Had a long discussion with his daughter Farida The plan is to continue current management If with worsening or non improvement, possible laparotomy He is comfortable with the plan Followed by cardiology in view of his coronary disease
[2021-04-30 18:02] LABS: Glucose, Whole Blood 186 mg/dL (60-115)
[2021-04-30] MEDS: Metoprolol Tartrate 5 MG in 0.9 % Sodium Chloride 50 ML 220 MG IV (18:12)
[2021-04-30] MEDS: diphenhydrAMINE HCL 50 MG/ML VIAL 25 MG IVPUSH (22:28)
[2021-05-01] VITALS (8 sets, daily range): BP systolic 106–169; BP diastolic 60–90; PULSE 67–87; RESP 14–20; TEMP 36.2–36.8; O2SAT 93–97
[2021-05-01] MEDS: Metoprolol Tartrate 5 MG in 0.9 % Sodium Chloride 50 ML 220 MG IV ×3 (01:58→19:38)
[2021-05-01] MEDS: 0.9 % Sodium Chloride 1,000 ML 100 ML IVCONT ×2 (05:15→10:54)
--- NOTE | 2021-05-01 06:44 | PC.NURSE ---
Dr ordered benadryl last night to help the patient sleep. Pt only napped on and off. NG tube had total of 50ml of green bile for my shift and colostomy was full of brown/frothy stool (600mls). Pt states the discomfort he has felt is gone. Pt resting with tv on and call luciano within reach. Will continue to monitor.
[2021-05-01 08:09] LABS: Glucose, Whole Blood 134 mg/dL (60-115)
--- NOTE | 2021-05-01 08:24 | PM.PNGS ---
Subjective Subjective Date of Service: 05/01/21 Interval history: Feels much better Denies abdominal pain Says his ostomy has been putting out a lot of stool since last night Physical Exam Vital Signs: Vital Signs: Last Vital Signs Temp 97.7 F 04/30/21 17:31 Pulse 87 05/01/21 06:19 Resp 14 05/01/21 06:19 BP 111/60 05/01/21 06:19 Pulse Ox 96 04/30/21 16:50 BMI result Body Mass Index 24.3 Const: General: comfortable and no acute distress Resp: Effort & Inspection: normal respiratory effort Cardio: Rate: regular rate GI: Other: Colostomy with a lot of output Palpation (GI): Soft to palpation, not firm, nontender and no guarding Objective Data Active Medications Sodium Chloride (Ns) 1,000 mls @ 100 mls/hr IVCONT .Q10H [facility] Last Admin: 05/01/21 05:15 Dose: 100 mls/hr Documented by: SANDY Metoprolol Tartrate 5 mg/ (Sodium Chloride) 55 mls @ 220 mls/hr IV Q8H [facility] Last Infusion: 05/01/21 02:13 Dose: 0 mls/hr Documented by: SANDY Morphine Sulfate (Morphine Sulfate 2 Mg/Ml Cartridge) 0.5 mg IVPUSH Q4H PRN; Protocol PRN Reason: Pain, Severe (Pain Scale 7-10) Last Admin: 04/30/21 05:49 Dose: 0.5 mg Documented by: MELISSA Ondansetron HCl (Ondansetron Hcl 4 Mg/2 Ml Vial) 4 mg IVPUSH Q8H PRN PRN Reason: Nausea and Vomiting Last Admin: 04/30/21 15:05 Dose: 4 mg Documented by: LUIS Pharmacy Consult (Consult Rx Perform Med Rec) 1 each MISCELLANE ONCE PRN PRN Reason: Consult order Sodium Chloride (0.9 % Sodium Chloride Flush 3 Ml Syringe) 3 ml IVFLUSH QSHIFT [facility] Last Admin: 05/01/21 00:15 Dose: Not Given Documented by: SANDY Non-Admin Reason: IV Running Labs CBC & Chem 7: 04/29/21 22:56 04/29/21 22:56 Labs: Laboratory Results - last 24 hr 04/30/21 05/01/21 17:51 07:30 POC Glucose 186 H 134 H Microbiology Microbiology Results: Microbiology 04/30/21 01:09 Blood Culture - Preliminary Blood - Venous No growth after 24 hours. 04/30/21 01:09 Blood Culture - Preliminary Blood - Venous No growth after 24 hours. Procedures Date of Service Date of Service: 05/01/21 Progress Note: A&P Assessment and plan (1) Small bowel obstruction: Status: Acute Assessment and Plan: Colostomy has opted to work with large amounts of output It appears that small-bowel obstruction is resolved CT scan and with radiologists - cystic collection in the pre sacral area unlikely to be tumor - seems to be chronic, probably had mesh on the pelvic floor after APR 13 years ago Obstructed small bowel probably due to adhesions on the floor Will see how much NG tube output today and possibly DC this later on He looks well with very benign abdominal benign exam Daughter Farida updated as well Hospitalist following with for multiple medical problems Seen by Cardiology for coronary disease, history of stenting [place] Patient is supposed to have a stress test as an outpatient Fall Risk Details Current Medications: Current Medications Sodium Chloride (Ns) 1,000 mls @ 100 mls/hr IVCONT .Q10H [facility] Last Admin: 05/01/21 05:15 Dose: 100 mls/hr Documented by: Metoprolol Tartrate 5 mg/ (Sodium Chloride) 55 mls @ 220 mls/hr IV Q8H [facility] Last Infusion: 05/01/21 02:13 Dose: Infused Documented by: Morphine Sulfate (Morphine Sulfate 2 Mg/Ml Cartridge) 0.5 mg IVPUSH Q4H PRN; Protocol PRN Reason: Pain, Severe (Pain Scale 7-10) Last Admin: 04/30/21 05:49 Dose: 0.5 mg Documented by: Ondansetron HCl (Ondansetron Hcl 4 Mg/2 Ml Vial) 4 mg IVPUSH Q8H PRN PRN Reason: Nausea and Vomiting Last Admin: 04/30/21 15:05 Dose: 4 mg Documented by: Pharmacy Consult (Consult Rx Perform Med Rec) 1 each MISCELLANE ONCE PRN PRN Reason: Consult order Sodium Chloride (0.9 % Sodium Chloride Flush 3 Ml Syringe) 3 ml IVFLUSH QSHIFT [facility] Last Admin: 05/01/21 00:15 Dose: Not Given Documented by: Time Spent With Patient Time: Total time spent is greater than 50% in coordination of care (as documented) at patient's floor/unit and/or counseling patient: Quality Stroke Does the patient have a stroke diagnosis?: No VTE Prior VTE?: No VTE Risk Level:: Medical - moderate - high VTE Device Contraindication: N/A - Device Ordered VTE Drug Contraindication: N/A - Med Ordered
--- NOTE | 2021-05-01 13:30 | P.PNIM_ITS ---
Subjective Subjective Date of Service: 05/01/21 Interval History: Seen and examined this morning No abdominal pain at this time No nausea, starting to have output ostomy Review of Systems Review of Systems: Yes all other systems are reviewed and are negative Constitutional Constitutional: Denies chills and Denies fever(s) Cardiovascular Cardiovascular: Denies chest pain and Denies palpitations Respiratory Respiratory: Denies cough Gastrointestinal Gastrointestinal: Denies nausea and Denies vomiting Endocrine Endocrine: Denies palpitations Physical Exam Vital Signs: Vital Signs: Last Vital Signs Temp 97.7 F 04/30/21 17:31 Pulse 76 05/01/21 12:06 Resp 16 05/01/21 12:06 BP 115/61 05/01/21 12:06 Pulse Ox 97 05/01/21 12:06 BMI result Body Mass Index 24.3 Const: General: cooperative, no acute distress, alert and awake Nutritional Appearance: average body habitus Resp: Effort & Inspection: normal respiratory effort and able to speak in complete sentences Cardio: Rate: regular rate Heart sounds: S1 normal heart sound present and S2 normal heart sound present GI: Other: ostomy present; non-tender, non-distended Extrem: Other: no lege edema Objective Data Active Medications Sodium Chloride (Ns) 1,000 mls @ 100 mls/hr IVCONT .Q10H [facility] Last Admin: 05/01/21 10:54 Dose: 100 mls/hr Documented by: ELIO Metoprolol Tartrate 5 mg/ (Sodium Chloride) 55 mls @ 220 mls/hr IV Q8H [facility] Last Infusion: 05/01/21 11:27 Dose: 0 mls/hr Documented by: ELIO Morphine Sulfate (Morphine Sulfate 2 Mg/Ml Cartridge) 0.5 mg IVPUSH Q4H PRN; Protocol PRN Reason: Pain, Severe (Pain Scale 7-10) Last Admin: 04/30/21 05:49 Dose: 0.5 mg Documented by: MELISSA Ondansetron HCl (Ondansetron Hcl 4 Mg/2 Ml Vial) 4 mg IVPUSH Q8H PRN PRN Reason: Nausea and Vomiting Last Admin: 04/30/21 15:05 Dose: 4 mg Documented by: LUIS Pharmacy Consult (Consult Rx Perform Med Rec) 1 each MISCELLANE ONCE PRN PRN Reason: Consult order Sodium Chloride (0.9 % Sodium Chloride Flush 3 Ml Syringe) 3 ml IVFLUSH QSHIFT [facility] Last Admin: 05/01/21 09:54 Dose: Not Given Documented by: ELIO Non-Admin Reason: IV Running Labs CBC & Chem 7: 04/29/21 22:56 04/29/21 22:56 Labs: Laboratory Results - last 24 hr 04/30/21 05/01/21 17:51 07:30 POC Glucose 186 H 134 H Microbiology Microbiology Results: Microbiology 04/30/21 01:09 Blood Culture - Preliminary Blood - Venous No growth after 24 hours. 04/30/21 01:09 Blood Culture - Preliminary Blood - Venous No growth after 24 hours. Assessment and Plan (1) Small bowel obstruction: Status: Acute Plan This is a 65 year old male with a PMH of Colorectal Ca s/p resection in 2008, CAD s/p [place] + PCI in the with 2 stents, DM, HLD, HTN who presents to the hospital with complaints of abdominal pain, nausea and vomiting of several days duration. He has been diagnosed with a high grade small bowel obstruction se condary - possibly secondary to a reoccurance of his cancer. Medical consult requested for medical management. 1. CAD s/p [place] + PCI with 2 stents (in the ) He endorses anginal symptoms x 1 year and was planned for outpatient stress test Given that he may need operative repair of his SBO -- will get cardiology consult for pre-operative optimization Echo with preserved EF and no WMA and EKG with no acute ischemic changes To resume DAPT when able (currently has NG in place) statiin on hold 2. DM on oral meds at home, which will be held POC q6 hours with sliding scale 3. HTN mildly elevated monitor for now and if needed will order IV meds lisinopril, metoprolol po on hold IV metoprolol scheduled for now 4. High grade SBO suspected secondary to pelvic mass (possible reoccurrence of his colorectal Ca) mgmt per Gen Surg. NPO NGT in place Will Follow along with you. attending: dr. robles Quality Stroke Does the patient have a stroke diagnosis?: No VTE Prior VTE?: No VTE Risk Level:: Medical - moderate - high VTE Device Contraindication: N/A - Device Ordered VTE Drug Contraindication: N/A - Med Ordered
[2021-05-01 14:39] LABS: Glucose, Whole Blood 122 mg/dL (60-115)
--- NOTE | 2021-05-01 14:47 | PC.NURSE ---
Patient arrived to room 360 from ED overflow. NG tube removed prior to transfer. Patient oriented to unit, call luciano, and plan of care. Patient verbalized understanding. NS @ 100 running. Patient ambulated independently to bathroom. Per MD order patient NPO except for sips of water and ice chips, patient verbalized understanding. All needs met at this time.
--- NOTE | 2021-05-01 15:49 | PM.EVENT ---
Event Note Date of Service: 05/01/21 Event Note: Seen on afternoon rounds Continues to have good amounts of input from his colostomy now Denies any abdominal pain NG tube output had been low Abdomen remained soft, not distended anymore, no tenderness Clinically looks well NG tube DC Start on clear liquids, slowly advance Family updated
[2021-05-01 16:42] LABS: Glucose, Whole Blood 124 mg/dL (60-115)
[2021-05-01 20:48] LABS: Glucose, Whole Blood 136 mg/dL (60-115)
[2021-05-02] VITALS: BP 98/59; PULSE 60; RESP 18; TEMP 36.1; O2SAT 99
[2021-05-02] MEDS: 0.9 % Sodium Chloride 1,000 ML 100 ML IVCONT ×2 (01:12→10:27)
[2021-05-02] MEDS: Metoprolol Tartrate 5 MG in 0.9 % Sodium Chloride 50 ML 220 MG IV (02:05)
[2021-05-02 03:45] VITALS: BP 109/64; PULSE 60; RESP 18; TEMP 36.9; O2SAT 95
[2021-05-02 06:59] VITALS: BP 113/65; PULSE 63; RESP 18; TEMP 36.4; O2SAT 94
[2021-05-02 07:17] LABS: Glucose, Whole Blood 80 mg/dL (60-115)
--- NOTE | 2021-05-02 09:55 | P.PNGS_ITS ---
Subjective Subjective Date of Service: 05/02/21 Interval history: Feels well Denies abdominal pain Says he is back to baseline No nausea or vomiting Had good amounts of stoma output all the yesterday but none this morning - he says this is not unusual for him Physical Exam Vital Signs: Vital Signs: Last Vital Signs Temp 97.6 F 05/02/21 06:59 Pulse 63 05/02/21 06:59 Resp 18 05/02/21 06:59 BP 113/65 05/02/21 06:59 Pulse Ox 94 05/02/21 06:59 BMI result Body Mass Index 24.3 Const: General: comfortable and no acute distress Resp: Effort & Inspection: normal respiratory effort Cardio: Rate: regular rate GI: Palpation (GI): Soft to palpation, not firm and nontender Objective Data Active Medications Sodium Chloride (Ns) 1,000 mls @ 100 mls/hr IVCONT .Q10H [facility] Last Admin: 05/02/21 07:13 Dose: Not Given Documented by: BRENNA Non-Admin Reason: IV Running Metoprolol Tartrate 5 mg/ (Sodium Chloride) 55 mls @ 220 mls/hr IV Q8H [facility] Last Infusion: 05/02/21 02:42 Dose: 220 mls/hr Documented by: ADRIANA Morphine Sulfate (Morphine Sulfate 2 Mg/Ml Cartridge) 0.5 mg IVPUSH Q4H PRN; Protocol PRN Reason: Pain, Severe (Pain Scale 7-10) Last Admin: 04/30/21 05:49 Dose: 0.5 mg Documented by: MELISSA Ondansetron HCl (Ondansetron Hcl 4 Mg/2 Ml Vial) 4 mg IVPUSH Q8H PRN PRN Reason: Nausea and Vomiting Last Admin: 04/30/21 15:05 Dose: 4 mg Documented by: LUIS Pharmacy Consult (Consult Rx Perform Med Rec) 1 each MISCELLANE ONCE PRN PRN Reason: Consult order Sodium Chloride (0.9 % Sodium Chloride Flush 3 Ml Syringe) 3 ml IVFLUSH QSHIFT [facility] Last Admin: 05/02/21 07:14 Dose: Not Given Documented by: BRENNA Non-Admin Reason: IV Running Labs CBC & Chem 7: 04/29/21 22:56 04/29/21 22:56 Labs: Laboratory Results - last 24 hr 05/01/21 05/01/21 05/01/21 14:33 15:25 19:41 POC Glucose 122 H 124 H 136 H 05/02/21 07:04 POC Glucose 80 Microbiology Microbiology Results: Microbiology 04/30/21 01:09 Blood Culture - Preliminary Blood - Venous No growth after 48 hours. 04/30/21 01:09 Blood Culture - Preliminary Blood - Venous No growth after 48 hours. Procedures Date of Service Date of Service: 05/02/21 Progress Note: A&P Assessment and plan (1) Small bowel obstruction: Status: Acute Assessment and Plan: Doing well after NG tube was removed Abdomen soft, nontender, nondistended CT scan images reviewed with radiologists - fluid collection the previous proctectomy site unlikely to be neoplastic - he has a mesh on the pelvic floor which may cause this SBO likely secondary to adhesions in the pelvis Symptoms have resolved Likely advance diet later today CEA level normal Family updated Fall Risk Details Current Medications: Current Medications Sodium Chloride (Ns) 1,000 mls @ 100 mls/hr IVCONT .Q10H [facility] Last Admin: 05/02/21 07:13 Dose: Not Given Documented by: Metoprolol Tartrate 5 mg/ (Sodium Chloride) 55 mls @ 220 mls/hr IV Q8H [facility] Last Infusion: 05/02/21 02:42 Dose: Infused Documented by: Morphine Sulfate (Morphine Sulfate 2 Mg/Ml Cartridge) 0.5 mg IVPUSH Q4H PRN; Protocol PRN Reason: Pain, Severe (Pain Scale 7-10) Last Admin: 04/30/21 05:49 Dose: 0.5 mg Documented by: Ondansetron HCl (Ondansetron Hcl 4 Mg/2 Ml Vial) 4 mg IVPUSH Q8H PRN PRN Reason: Nausea and Vomiting Last Admin: 04/30/21 15:05 Dose: 4 mg Documented by: Pharmacy Consult (Consult Rx Perform Med Rec) 1 each MISCELLANE ONCE PRN PRN Reason: Consult order Sodium Chloride (0.9 % Sodium Chloride Flush 3 Ml Syringe) 3 ml IVFLUSH QSHIFT [facility] Last Admin: 05/02/21 07:14 Dose: Not Given Documented by: Time Spent With Patient Time: Total time spent is greater than 50% in coordination of care (as documented) at patient's floor/unit and/or counseling patient: Quality Stroke Does the patient have a stroke diagnosis?: No VTE Prior VTE?: No VTE Risk Level:: Medical - moderate - high VTE Device Contraindication: N/A - Device Ordered VTE Drug Contraindication: N/A - Med Ordered
--- NOTE | 2021-05-02 10:18 | HO.PM.IMPN ---
Subjective Subjective Date of Service: 05/02/21 Interval History: seen and examined this morning NGT out, patient tolerating clear liquids. no abdominal pain. Review of Systems Review of Systems: Yes all other systems are reviewed and are negative Constitutional Constitutional: Denies chills and Denies fever(s) Cardiovascular Cardiovascular: Denies chest pain, Denies palpitations and Denies dyspnea Respiratory Respiratory: Denies cough and Denies dyspnea Gastrointestinal Gastrointestinal: Denies abdominal pain, Denies nausea and Denies vomiting Endocrine Endocrine: Denies palpitations Physical Exam Vital Signs: Vital Signs: Last Vital Signs Temp 97.6 F 05/02/21 06:59 Pulse 63 05/02/21 06:59 Resp 18 05/02/21 06:59 BP 113/65 05/02/21 06:59 Pulse Ox 94 05/02/21 06:59 BMI result Body Mass Index 24.3 Const: Other: appears comfortable; NGT out General: cooperative, no acute distress, alert and awake Nutritional Appearance: average body habitus Resp: Effort & Inspection: normal respiratory effort and able to speak in complete sentences Cardio: Rate: regular rate Heart sounds: S1 normal heart sound present and S2 normal heart sound present GI: Other: ostomy present; non-tender, non-distended Extrem: Other: no leg edema Objective Data Active Medications Sodium Chloride (Ns) 1,000 mls @ 100 mls/hr IVCONT .Q10H [facility] Last Admin: 05/02/21 07:13 Dose: Not Given Documented by: BRENNA Non-Admin Reason: IV Running Metoprolol Tartrate (Metoprolol Tartrate 25 Mg Tablet) 25 mg PO DAILY [facility]; Protocol Morphine Sulfate (Morphine Sulfate 2 Mg/Ml Cartridge) 0.5 mg IVPUSH Q4H PRN; Protocol PRN Reason: Pain, Severe (Pain Scale 7-10) Last Admin: 04/30/21 05:49 Dose: 0.5 mg Documented by: MELISSA Ondansetron HCl (Ondansetron Hcl 4 Mg/2 Ml Vial) 4 mg IVPUSH Q8H PRN PRN Reason: Nausea and Vomiting Last Admin: 04/30/21 15:05 Dose: 4 mg Documented by: LUIS Pharmacy Consult (Consult Rx Perform Med Rec) 1 each MISCELLANE ONCE PRN PRN Reason: Consult order Sodium Chloride (0.9 % Sodium Chloride Flush 3 Ml Syringe) 3 ml IVFLUSH QSHIFT [facility] Last Admin: 05/02/21 07:14 Dose: Not Given Documented by: BRENNA Non-Admin Reason: IV Running Labs CBC & Chem 7: 04/29/21 22:56 04/29/21 22:56 Labs: Laboratory Results - last 24 hr 05/01/21 05/01/21 05/01/21 14:33 15:25 19:41 POC Glucose 122 H 124 H 136 H 05/02/21 07:04 POC Glucose 80 Microbiology Microbiology Results: Microbiology 04/30/21 01:09 Blood Culture - Preliminary Blood - Venous No growth after 48 hours. 04/30/21 01:09 Blood Culture - Preliminary Blood - Venous No growth after 48 hours. Assessment and Plan (1) Coronary artery disease: Status: Acute Plan This is a 65 year old male with a PMH of Colorectal Ca s/p resection in 2008, CAD s/p [place] + PCI in the with 2 stents, DM, HLD, HTN who presents to the hospital with complaints of abdominal pain, nausea and vomiting of several days duration. He has been diagnosed with a high grade small bowel obstruction secondary - possibly secondary to a reoccurance of his cancer. Medical consult requested for medical management. 1. CAD s/p [place] + PCI with 2 stents (in the ) He endorses anginal symptoms x 1 year and was planned for outpatient stress test Seen by cardiology consult for pre-operative optimization - intermediate risk for any procedure Echo with preserved EF and no WMA and EKG with no acute ischemic changes Can resume DAPT when safe from surgical perspective resume po metoprolol statin on hold, can resume on d/c 2. DM on oral meds at home, which will be held; can resume on discharge SSI 3. HTN BP controlled. will change metoprolol back to po now that he is tolerating diet lisinopril on hold 4. High grade SBO NGT out, tolerating lquids management by surgery attending: dr. robles Quality Stroke Does the patient have a stroke diagnosis?: No VTE Prior VTE?: No VTE Risk Level:: Medical - moderate - high VTE Device Contraindication: N/A - Device Ordered VTE Drug Contraindication: N/A - Med Ordered
[2021-05-02 10:24] VITALS: BP 136/70; PULSE 65
[2021-05-02] MEDS: Metoprolol Tartrate 25 MG TABLET PO (10:24)
[2021-05-02 10:26] LABS: Hematocrit 29.1 % (42.0-52.0); Hemoglobin 9.4 g/dl (14.0-18.0); Mean Corpuscular HGB Conc 32.3 g/dl (31.0-36.0); Mean Corpuscular Hemoglobin 32.2 pg (27.0-33.0); Mean Corpuscular Volume 99.7 fL (80.0-98.0); Mean Platelet Volume 10.5 fL (9.4-12.4); Platelet Count 113 X10*3/uL (160-400); Red Blood Count 2.92 X10*6/uL (4.60-5.80); Red Cell Distribution Width 11.9 % (11.0-16.0); White Blood Count 4.4 X10*3/uL (4.8-10.8)
[2021-05-02 11:27] VITALS: BP 130/70; PULSE 57; RESP 18; TEMP 37; O2SAT 97
[2021-05-02 11:36] LABS: Anion Gap 8 (12-20); Blood Urea Nitrogen 37 mg/dL (9-16); Calcium 8.2 mg/dL (8.4-10.2); Carbon Dioxide 28 mmol/L (22-29); Chloride 106 mmol/L (96-108); Creatinine Clr Calc Pharmacy 51.8; Estimated Glomerular Filt Rate 55; Glucose Random 166 mg/dL (60-115); Potassium 3.9 mmol/L (3.3-5.1); Sodium 138 mmol/L (135-145)
[2021-05-02 11:37] LABS: Glucose, Whole Blood 133 mg/dL (60-115)
--- NOTE | 2021-05-02 15:06 | PM.EVENT ---
Event Note Date of Service: 05/02/21 Event Note: Continues to feel well Denies abdominal pain Has been tolerating diet Good stoma output Abdomen remained soft and nondistended He feels ready to go home He understands possibility of recurrent obstruction Likely from adhesions in the deep pelvis from previous APR
--- NOTE | 2021-05-02 15:24 | MHC.CM.PN ---
PT MEDICALLY CLEARED FOR D/C HOME TODAY SELF-CARE, PT TO ARRANGE TRANSPORT.
[2021-05-02 15:39] VITALS: BP 134/77; PULSE 69; RESP 18; TEMP 36.9; O2SAT 96
[2021-05-02 16:06] LABS: Glucose, Whole Blood 145 mg/dL (60-115)
--- NOTE | 2021-05-06 15:19 | PM.DS ---
DS: Providers Provider Date of Service: 05/02/21 Date of admission: 04/30/21 04:00 Date of discharge: 05/02/21 Primary care physician: Julio Cesar Swan MD Consults: 04/30/21 07:57 Consult to Hospitalist Routine Consulting Provider: Hospitalist Reason For Exam: DM, CAD, HTN 04/30/21 09:14 Consult to Cardiology Routine Consulting Provider: Francisco Ro Reason for consultation: pre-operative evaluation, hx of cad, anginal symptoms x 1 year, none now DS: Diagnosis Discharge Diagnosis (1) Coronary artery disease: Status: Acute DS: Summary Hospital Course Hospital Course: 65-year-old male with a remote history of rectal cancer, with APR in 2008, with multiple surgeries thereafter for the perineum in the abdomen, admitted because of abdominal pain and vomiting on 04/30/2021. His CAT scan showed small bowel dilatation with what appeared to be fecalization in a loop deep into the pelvis. There was note of distal collapse. The CAT scan also showed what appeared to be a cystic collection in the presacral area adjacent to this loop of small bowel in the pelvis. There was an initial concern for recurrence of his rectal cancer. However, his CEA level was normal. He had an NG tube placed which provided relief of his distension and pain. He actually proved significantly with NG tube placement. His stoma started to have good output the day after his admission. His NG tube was removed and was started on clear liquids. He continued to tolerate this. Continued to have good stoma function so his diet was advanced to regular food on May 02 and he continued to tolerate this. He was therefore discharged that day. Impression therefore was that he had small-bowel obstruction secondary this may have been secondary to the presence of a mesh pelvic floor which may have been placed after his APR. it was unlikely with this overall finding that he had a recurrence in the presacral area. The cystic changes were likely secondary to chronic changes from his mesh. His exam is very benign. He had good oral intake good stoma function on the day of his discharge. Time Spent with Patient Time attestation: Total time spent providing and/or coordinating discharge services: Discharge coordination time: Greater than 30 minutes Quality: Stroke Does the patient have a stroke diagnosis?: No Physical Exam Vital Signs: Vital Signs: Last Vital Signs Temp 98.4 F 05/02/21 15:39 Pulse 69 03/25/22 15:39 Resp 18 05/02/21 15:39 BP 134/77 05/02/21 15:39 Pulse Ox 96 05/02/21 15:39 BMI result Body Mass Index 24.3 Const: General: comfortable and no acute distress Orientation/consciousness: patient oriented x3 Neck: Neck: Yes no lymphadenopathy Resp: Auscultation: clear to auscultation bilaterally Cardio: Rhythm: regular rhythm GI: Other: Stoma functioning well, abdomen soft nondistended nontender Palpation (GI): Soft to palpation, nontender and no guarding Neuro: General: patient oriented x3 DS: Data Data Completed and Pending Completed studies during hospitalization [Text1]: Laboratory Results WBC 4.4 X10*3/uL (4.8-10.8) L 05/02/21 10:11 RBC 2.92 X10*6/uL (4.60-5.80) L D 05/02/21 10:11 Hgb 9.4 g/dl (14.0-18.0) L D 05/02/21 10:11 Hct 29.1 % (42.0-52.0) L D 05/02/21 10:11 MCV 99.7 fL (80.0-98.0) H 05/02/21 10:11 MCH 32.2 pg (27.0-33.0) 05/02/21 10:11 MCHC 32.3 g/dl (31.0-36.0) 05/02/21 10:11 RDW 11.9 % (11.0-16.0) 05/02/21 10:11 Plt Count 113 X10*3/uL (160-400) L D 05/02/21 10:11 MPV 10.5 fL (9.4-12.4) 05/02/21 10:11 Immature Gran % (Auto) 0.3 % (0.0-0.4) 04/29/21 22:56 Neut % (Auto) 91.1 % (45-73) H 04/29/21 22:56 Lymph % (Auto) 2.6 % (20-40) L 04/29/21 22:56 [place] % (Auto) 5.6 % (2-11) 04/29/21 22:56 Eos % (Auto) 0.1 % (0-4) 04/29/21 22:56 Baso % (Auto) 0.3 % (0-2) 04/29/21 22:56 Lymph # (Auto) 0.3 X10*3/uL (1.2-4.9) L 04/29/21 22:56 [place] # (Auto) 0.7 X10*3/uL (0.1-1.2) 04/29/21 22:56 Eos # (Auto) 0.0 X10*3/uL (0.0-0.4) 04/29/21 22:56 Baso # (Auto) 0.0 X10*3/uL (0.0-0.2) 04/29/21 22:56 Abs Immat Gran (auto) 0.03 X10*3/uL (0.00-0.03) 04/29/21 22:56 Absolute Neuts (auto) 10.6 x10*3/uL (2.0-8.3) H 04/29/21 22:56 Absolute Nucleated RBC 0.000 X10*3/uL (0.0-0.012) 05/02/21 10:11 Nucleated RBC % (auto) 0.0 /100WBC (0.0-0.2) 05/02/21 10:11 Smear Tech's Comments VERIFIED 04/29/21 22:56 Sodium 138 mmol/L (135-145) 05/02/21 10:11 Potassium 3.9 mmol/L (3.3-5.1) D 05/02/21 10:11 Chloride 106 mmol/L (96-108) 05/02/21 10:11 Carbon Dioxide 28 mmol/L (22-29) 05/02/21 10:11 Anion Gap 8 (12-20) L 05/02/21 10:11 BUN 37 mg/dL (9-16) H 05/02/21 10:11 Creatinine 1.31 mg/dL (0.5-1.4) 05/02/21 10:11 Estim Creat Clear Calc 51.8 05/02/21 10:11 Estimated GFR 55 05/02/21 10:11 POC Glucose 145 mg/dL (60-115) H 05/02/21 15:50 Random Glucose 166 mg/dL (60-115) H 05/02/21 10:11 Lactic Acid 1.7 mmol/L (0.5-2.0) 04/30/21 01:09 Calcium 8.2 mg/dL (8.4-10.2) L D 05/02/21 10:11 Total Bilirubin 0.8 mg/dL (0.0-1.0) 04/29/21 22:56 Direct Bilirubin 0.3 mg/dL (0.0-0.5) 04/29/21 22:56 AST 16 U/L (5-37) 04/29/21 22:56 ALT 17 U/L (0-40) 04/29/21 22:56 Alkaline Phosphatase 62 U/L (39-117) 04/29/21 22:56 Total Protein 7.1 g/dL (6.5-8.0) 04/29/21 22:56 Albumin 4.6 g/dL (3.5-5.0) 04/29/21 22:56 Lipase 18 U/L (8-78) 04/29/21 22:56 Carcinoembryonic Ag 1.40 ng/mL 04/29/21 22:56 Urine Color YELLOW 04/30/21 03:29 Urine Appearance CLEAR 04/30/21 03:29 Urine pH 5.5 (5.0-8.0) 04/30/21 03:29 Ur Specific [place] 1.025 (1.005-1.025) 04/30/21 03:29 Urine Protein TRACE MG/DL (NEG-TRACE) 04/30/21 03:29 Urine Glucose (UA) NEG MG/DL (NEG) 04/30/21 03:29 Urine Ketones NEG MG/DL (NEG) 04/30/21 03:29 Urine Blood NEG (NEG) 04/30/21 03:29 Urine Nitrite NEG (NEG) 04/30/21 03:29 Ur Leukocyte Esterase NEG (NEG) 04/30/21 03:29 COVID-19 (ANDREE) Negative (Negative) 04/30/21 01:06 COVID-19 Clin Com See Note 04/30/21 01:06 Impressions Abdomen/Pelvis CT 04/30/21 02:35 IMPRESSION: 1. High-grade small bowel obstruction with the transition point occurring in the deep, central pelvis adjacent to the sacral/presacral cystic and solid lesion. Recommend correlation with cancer history. This obstruction may be due to local involvement by the adjacent lesion or, alternatively, due to scarring and adhesions from posttreatment changes in this region. 2. Bilateral nephrolithiasis. No evidence of obstructive uropathy. Chest X-Ray 04/30/21 03:20 IMPRESSION: NG tube tip terminates in the body of the stomach. Imaging CT scan - pelvis: Radiologist's impression: ITS Impressions Abdomen/Pelvis CT 04/30/21 02:35 IMPRESSION: 1. High-grade small bowel obstruction with the transition point occurring in the deep, central pelvis adjacent to the sacral/presacral cystic and solid lesion. Recommend correlation with cancer history. This obstruction may be due to local involvement by the adjacent lesion or, alternatively, due to scarring and adhesions from posttreatment changes in this region. 2. Bilateral nephrolithiasis. No evidence of obstructive uropathy. Chest X-Ray 04/30/21 03:20 IMPRESSION: NG tube tip terminates in the body of the stomach. Discharge Plan Discharge Patient Disposition: Home, Self-Care Discharge Diagnosis: SBO Referrals: Julio Cesar Swan MD [Primary Care Provider] - 1 Week Lorne Wong MD [Physician] - 1 Week Discharge Medications: Continued atorvastatin 40 mg tablet 1 tab PO DAILY 0RF clopidogrel 75 mg tablet 1 tab PO DAILY 0RF metformin 1,000 mg tablet 1 tab PO BID 0RF metoprolol tartrate 50 mg tablet 25 mg PO QPM 0RF aspirin 81 mg Tablet 81 mg PO DAILY 0RF lisinopril 40 mg tablet 1 tab PO DAILY 0RF Januvia 100 mg tablet 1 tab PO BEDTIME 0RF latanoprost 0.005 % drops 1 drp ophthalmic (eye) BEDTIME 0RF multivitamin Tablet 1 tab PO DAILY 0RF PreserVision AREDS [id number] Capsule 1 cap PO BID 0RF Discharge Orders: Discharge Order (Routine); Ordered 05/02/21 Ordered By: Lorne Wong Diet: advance to usual diet Activity on Discharge: As tolerated Stand Alone Forms: Patient Portal Discharge page Activity Restrictions/Additional Instructions: Call Your Doctor If: ? ? -Your temperature exceeds 101.5? F? ? ? -You experience excessive pain or swelling ? ? -You have an unexpected reaction to medication ? ? -You experience severe pain and/or continued vomiting/nausea Care Plan Goals: Return to baseline health, gradually return to activities Health Concerns: Hx of rectal ca SBO Plan of Treatment: Observation F/u with PCP Assessment: Improved Discharge Date/Time: 05/02/21 17:02
== END 2021-05-02 17:02 | disposition home or self-care (01) | DRG 813 ==
LOC: HO.ED 04-30 02:44 → HO.EDOVER 04-30 04:42 → HO.S3 05-01 11:37
PROVIDERS: Admitting Provider Surgery; Emergency Provider Student in an Organized Health Care Education/Training Program; PCP Internal Medicine; Visit Provider Surgery
DX: T85.698A Other mechanical complication of other specified internal prosthetic devices, implants and grafts, initial encounter (principal); C19 Malignant neoplasm of rectosigmoid junction; I10 Essential (primary) hypertension; I25.10 Atherosclerotic heart disease of native coronary artery without angina pectoris; E11.9 Type 2 diabetes mellitus without complications; Z20.822 Contact with and (suspected) exposure to COVID-19; I25.2 Old myocardial infarction; Z95.5 Presence of coronary angioplasty implant and graft; Z92.21 Personal history of antineoplastic chemotherapy; Z93.3 Colostomy status; Z92.3 Personal history of irradiation; Z79.02 Long term (current) use of antithrombotics/antiplatelets; Z79.82 Long term (current) use of aspirin; Z79.84 Long term (current) use of oral hypoglycemic drugs; Z79.899 Other long term (current) drug therapy
CPT/HCPCS: 36415; 71045; 74176; 80048; 80076; 81003; 82378; 82947; 83605; 83690; 85025; 85027; 87040; 87635; 93005; 93306; 99285; J1170; J1200; J2270; J2405

== ENCOUNTER 2023-01-29 09:20 | Inpatient (IN) | payer BC, MEDICARE, SELFPAY ==
--- NOTE | ~2023-01-29 | XR_ITS ---
EXAMINATION: XR ABDOMEN KUB CLINICAL INDICATION: Follow-up for small bowel obstruction COMPARISON: CT abdomen pelvis 12/30/2022 TECHNIQUE: AP view of the abdomen. FINDINGS: Enteric tube terminates in projection with the expected location of the proximal stomach. The visualized lung bases are clear. A left lower quadrant ostomy is partially visualized. Right lower quadrant intestinal chain sutures are noted. No gross free intraperitoneal gas noted. Scattered bowel gas is noted in nondistended small and large bowel segments. Within the left lower abdominal quadrant several small bowel segments measure up to 4.3 cm in uncorrected diameter, above normal limits of size. The left renal calculus noted to better advantage on the comparison CT may correlate with a vague density left upper abdominal quadrant. XR/XR KUB IMPRESSION: *Dilated small bowel segments within the left lower abdominal quadrant which may indicate persistent small bowel obstruction. The overall degree of small bowel dilatation is either unchanged or decreased compared with CT the abdomen and pelvis 01/29/2023 11:35 AM making allowances for interval differences in imaging technique. *Enteric tube terminating within the proximal stomach. The side-port terminates in the region of the immediate proximal stomach. No gastric distention identified.
--- NOTE | ~2023-01-29 | CT_ITS ---
EXAMINATION: CT CHEST WITH CONTRAST CLINICAL INFORMATION: Chest wall ecchymosis. COMPARISON: Chest x-ray April 2021. TECHNIQUE: Multidetector volumetric CT imaging of the chest was obtained after the administration of 85 mL of Omnipaque 350 intravenous contrast without immediate adverse reactions. Axial MIP volume rendering provided. Sagittal and coronal reformatted images were obtained. This CT examination was performed using dose optimization techniques as appropriate, variously including the following: *Automated exposure control *Adjustment of mA and/or kV according to patient size (this includes techniques or standardized protocols for targeted exams where dose is matched to indication/reason for exam; i.e. extremities or head) *Use of iterative reconstruction technique DLP: 763 mGy-cm FINDINGS: LUNGS: The lungs are clear with no evidence of inflammation or nodules. MEDIASTINUM: Sternotomy wires noted. There is calcific atherosclerotic disease with involvement of the thoracic aorta and coronary arteries. Heart size unremarkable. No pericardial fluid. Esophagus normal. Thoracic inlet unremarkable. No lymphadenopathy. PLEURA: There is no pleural effusion. No pleural mass or thickening. AXILLA: No lymphadenopathy. UPPER ABDOMEN: Unremarkable. OSSEOUS STRUCTURES: Sternotomy wires. Multilevel spondylosis of the dorsal spine with endplate osteophytes noted. No fracture or bone lesion. CT/CT chest w IV con IMPRESSION: 1. No acute abnormality in the chest. 2. Calcific atherosclerotic disease. Coronary artery calcification noted. 3. Hepatic steatosis. Fleischner guidelines were followed.
--- NOTE | ~2023-01-29 | XR_ITS ---
EXAMINATION: XR CHEST CLINICAL INFORMATION: NG tube placement COMPARISON: None available. TECHNIQUE: Frontal portable view of the chest was obtained. 1706 hours FINDINGS: Nasogastric tube catheter end hole and side hole in stomach. Status post median sternotomy. Cardiac mediastinal contours are normal. No pulmonary vascular congestion. Lungs are normally aerated. No pleural effusion and no pneumothorax. XR/XR chest 1V IMPRESSION: Nasogastric tube catheter end hole and side hole in stomach.
--- NOTE | ~2023-01-29 | CT_ITS ---
EXAMINATION: CT ABDOMEN AND PELVIS WITH CONTRAST CLINICAL INFORMATION: Diffuse abdominal pain, ostomy. History of small-bowel obstruction, multiple surgeries. COMPARISON: None available. TECHNIQUE: Multidetector volumetric images were obtained from the superior aspect of the liver through the pubic symphysis following administration 85 mL of Omnipaque 350 intravenous contrast. Sagittal and coronal reformatted images were obtained on the technologist's workstation. Oral contrast: No This CT examination was performed using dose optimization techniques as appropriate, variously including the following: *Automated exposure control *Adjustment of mA and/or kV according to patient size (this includes techniques or standardized protocols for targeted exams where dose is matched to indication/reason for exam; i.e. extremities or head) *Use of iterative reconstruction technique DLP: 536 mGy-cm FINDINGS: LUNG BASES: The visualized lung bases are unremarkable. LIVER, GALLBLADDER, AND BILIARY TREE: The liver parenchyma unremarkable. The gallbladder is unremarkable with no evidence of radiopaque gallstones, gallbladder wall thickening, or obvious pericholecystic inflammatory changes. PANCREAS: Unremarkable. SPLEEN: Unremarkable. ADRENAL GLANDS: Unremarkable. KIDNEYS AND URETERS: Bilateral benign renal cysts, unchanged. No follow-up required. Small nonobstructing right renal calculus in the lower pole, unchanged. Staghorn calculus in the lower pole of the left kidney measuring approximately 1.7 cm, unchanged. No hydronephrosis or hydroureter. BLADDER: Unremarkable. GASTROINTESTINAL TRACT: There are persistent postsurgical changes. There is an ostomy in the left lower quadrant with a decompressed large bowel. There is a lobulated cystic collection in the presacral region extending out posteriorly to the subcutaneous soft tissues with multiple surgical clips noted. This area is unchanged and measures up to 6 cm transverse, 6.8 cm AP and 4 cm craniocaudal. Anteriorly this abuts the prostate. Surgical shaun noted in the anterior lower pelvis to the right of midline, unchanged. There is persistent dilatation of small-bowel loops in the midabdomen and left lower quadrant with a transition point possibly within the deep central pelvis as before. As before, there is fecalization of the small bowel. The more distal small bowel appears decompressed as is the distal colon as before. ABDOMINAL WALL: Left lower quadrant colostomy again noted, unchanged. Calcification along the peritoneum may reflect postsurgical change and/or prior hernia repair, unchanged. LYMPH NODES: Normal. VASCULAR: Calcific atherosclerotic disease throughout, unchanged. PELVIC VISCERA: As before the lobulated cystic mass/collection abuts the posterior prostate. Prostate unremarkable. OSSEOUS STRUCTURES: Multilevel spondylosis of the lumbosacral spine, unchanged. Cystic collection abutting the area of the resected coccyx as before, unchanged. CT/CT abdomen pelvis w IV con IMPRESSION: 1. Findings compatible with small-bowel obstruction with transition point suspected in the deep pelvis similar to prior CT April 2021 suggesting recurrent small-bowel obstruction. 2. Stable cystic mass/collection in the presacral region overlying the area of prior coccyx resection. 3. Stable bilateral renal calculi. 4. Calcific atherosclerotic disease. 5. Stable spondylosis of the lumbosacral spine. Fleischner guidelines were followed.
[2023-01-29 09:28] VITALS: BP 183/81; PULSE 60; RESP 18; TEMP 36.3; O2SAT 99; BMI 24.5
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
--- NOTE | 2023-01-29 09:59 | ECG_ITS ---
Test Reason : abd pain Blood Pressure : / mmHG Vent. Rate : 059 BPM Atrial Rate : 059 BPM P-R Int : 174 ms QRS Dur : 112 ms QT Int : 402 ms P-R-T Axes : 035 -25 066 degrees QTc Int : 397 ms Sinus bradycardia Possible Left atrial enlargement Minimal voltage criteria for LVH, may be normal variant ( [place] product ) Borderline ECG When compared with ECG of 30-APR-2021 12:14, Vent. rate has decreased BY 35 BPM Questionable change in QRS duration Referred By: Neida Lei Electronically Signed By:JOSELUIS NICHOLAS MD
[2023-01-29] MEDS: 0.9 % Sodium Chloride 1,000 ML 999 ML IV (10:31)
[2023-01-29 10:36] LABS: Basophils Percent Auto 0.2 % (0-2); Eosinophils Percent Auto 0.1 % (0-4); Hematocrit 37.8 % (42.0-52.0); Hemoglobin 11.8 g/dl (14.0-18.0); Imm Gran Abs Auto 0.03 X10*3/uL (0.00-0.03); Imm Gran Pct Auto 0.3 % (0.0-0.4); Lymphocytes Absolute Auto 0.4 X10*3/uL (1.2-4.9); Lymphocytes Percent Auto 4.1 % (20-40); MANUAL DIFF FLAG SCAN; Mean Corpuscular HGB Conc 31.2 g/dl (31.0-36.0); Mean Corpuscular Hemoglobin 27.9 pg (27.0-33.0); Mean Corpuscular Volume 89.4 fL (80.0-98.0); Mean Platelet Volume 10.8 fL (9.4-12.4); Monocytes Absolute Auto 0.4 X10*3/uL (0.1-1.2); Monocytes Percent Auto 4.2 % (2-11); Neutrophils Absolute Auto 8.6 x10*3/uL (2.0-8.3); Neutrophils Percent Auto 91.1 % (45-73); Platelet Count 135 X10*3/uL (160-400); Red Blood Count 4.23 X10*6/uL (4.60-5.80); Red Cell Distribution Width 14.5 % (11.0-16.0); SCAN SMEAR FLAG 1; White Blood Count 9.5 X10*3/uL (4.8-10.8)
[2023-01-29 10:53] LABS: Alanine Aminotransferase 16 U/L (0-40); Albumin Level 4.4 g/dL (3.5-5.0); Alkaline Phosphatase 85 U/L (39-117); Anion Gap 15 (12-20); Aspartate Amino Transferase 20 U/L (5-37); Bilirubin Direct 0.3 mg/dL (0.0-0.5); Bilirubin Total 0.6 mg/dL (0.0-1.0); Blood Urea Nitrogen 24 mg/dL (9-16); Calcium 9.9 mg/dL (8.4-10.2); Carbon Dioxide 27 mmol/L (22-29); Chloride 105 mmol/L (96-108); Creatinine Clr Calc Pharmacy 47.8; Estimated Glomerular Filt Rate 51; Glucose Random 163 mg/dL (60-115); Lipase 17 U/L (8-78); Magnesium 1.7 mg/dL (1.6-2.6); Potassium 4.5 mmol/L (3.3-5.1); Sodium 142 mmol/L (135-145); Total Protein 7.5 g/dL (6.5-8.0)
[2023-01-29 10:55] LABS: SLIDE REVIEW VERIFIED
[2023-01-29 10:57] LABS: Appearance Urine Clear; Color Urine Yellow; Glucose Urine UA Negative (Negative); Leukocyte Esterase Urine Negative (Negative); Nitrite Urine Negative (Negative); UMIC TRIGGER UACC YES; Urine Blood Trace (Negative); Urine Ketones 15 mg/dL (Negative); Urine Protein 300 (3+) mg/dL (Neg-Trace)
[2023-01-29 11:03] LABS: Bacteria Urine None Seen (None Seen); Hyaline Casts Urine 0-2 /LPF (0-2); RBC Urine 0-2 /HPF (0-2); Squamous Epithelial Cell Urine 0-2 /HPF (0-2); WBC Urine 0-5 /HPF (0-5)
[2023-01-29] MEDS: iohexoL 350 MG/ML 100 ML INFUS..BTL 85 ML IV (11:34)
[2023-01-29] MEDS: Morphine Sulfate 2 MG/ML CARTRIDGE IVPUSH (12:15)
[2023-01-29] MEDS: ondansetron HCL 4 MG/2 ML VIAL IVPUSH ×2 (12:15→22:48)
--- NOTE | 2023-01-29 12:18 | PC.NURSE ---
pt actively vomited onto the floor. provider aware. medication administered per provider order.
[2023-01-29 13:09] VITALS: BP 147/70; PULSE 66; RESP 16; TEMP 37.4; O2SAT 96
--- NOTE | 2023-01-29 13:39 | PC.NURSE ---
vss and up to date at this time. pt still verbalizing 5/10 abd pain despite medication administration. requesting more medication. will notify provider. respirations remain even/unlabored. pt awaiting CT results at this time. call luciano placed within reach.
[2023-01-29 13:40] LABS: Troponin-I High Sensitivity < 2.7 ng/L (<3.5-35.0)
[2023-01-29] MEDS: Morphine Sulfate 4 MG/ML CARTRIDGE IVPUSH (13:59)
--- NOTE | 2023-01-29 13:59 | PC.NURSE ---
medication administered per provider order - will reassess pain level.
[2023-01-29] MEDS: Lidocaine HCl 4 % Laryng-O-Jet 4 ML 1 APPL TOPICAL (15:37)
--- NOTE | 2023-01-29 16:12 | PM.HPGS ---
History of Present Illness History of Present Illness Date of Service: 01/31/23 Chief complaint: small bowel obstruction Narrative: Paul Bella is a 67 year old male here in the ER for abdominal pain. He says that this started at around 05:00 o'clock yesterday afternoon. He says that persisted overnight so he decided to come to the emergency room at around 09:00 o'clock this morning. He describes 1 episode of vomiting when he came to the ER . He describes the pain as crampy. He has a colostomy from a previous APR. He says that he has had very minimal no output since last night. He has a history of rectal cancer and had undergone APR in [facility] in 2008.. He also had undergone neoadjuvant chemotherapy and radiation before that surgery. He says that he had multiple rectal surgeries after the procedure because of complications with the perineal wound. Otherwise, he says that he has had no other abdominal surgeries. He follows an oncologist in [facility]. He has history of NV in the past. 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 He describes his pain as around a 7 when he 1st came this morning. He says his pain is down to a 1 or 2. I had actually admitted him to the hospital for the same symptoms last April 2021. He stayed in the hospital for 2-3 days then. Review of Systems Constitutional: Constitutional: Denies chills and Denies fever(s) Cardiovascular: Cardiovascular: Denies chest pain, Denies dyspnea and Denies dyspnea on exertion Respiratory: Respiratory: Denies cough, Denies dyspnea and Denies dyspnea on exertion Gastrointestinal: Gastrointestinal: Denies hematochezia and Denies change in bowel habits Comments: Has colostomy Genitourinary: Genitourinary: Denies hematuria and Denies difficulty urinating Musculoskeletal: Musculoskeletal: Denies back pain and Denies limited range of motion Neurologic: Denies focal weakness and Denies convulsions Psychiatric: Psychiatric: Denies depression and Denies mood swings [facility] Past Medical History Medical History History of rectal cancer Coronary artery disease HTN (hypertension) Diabetes Colorectal cancer Surgical History Surgical History History of coronary artery bypass graft History of rectal surgery Social History Social History Household Members: Children Household Members Other:: Son intermittently live with patient Housing: House Do you presently have visiting nurse or other home services: No Alcohol intake: current Alcohol intake frequency: holidays/special occasions only Patient Tobacco Use Status: Never used Tobacco Smoked in Last 30 Days: No Patient Interested in Nicotine Replacement: No Use of substances other than those prescribed or required for medical reasons: No Currently Displaying Signs/Symptoms of Drug Intoxication Withdrawal: No Have you been hit, kicked, punched, or otherwise hurt by someone within the past year? If so, by whom?: No Do you feel safe in your current relationship?: Yes Is there a partner from a previous relationship who is making you feel unsafe now?: No Are you made to feel afraid or neglected: No Advance Directives: No Advance Directives Information Provided: No Do you have thoughts of harming others: None Do you have a plan to hurt others: No Plan Recently lost weight without trying: No Eating poorly because of decreased appetite: No Nutrition Risks: No Nutritional Risk service: No Current occupational status: employed Meds Allergies Allergy/AdvReac Type Severity Reaction Status Date / Time No Known Allergies Allergy Verified 04/29/21 22:49 Home Medications Medication Instructions Recorded Confirmed Last Taken Type atorvastatin 40 mg tablet 1 tab PO DAILY 04/30/21 01/29/23 01/28/23 History clopidogrel 75 mg tablet 1 tab PO DAILY 04/30/21 01/29/23 01/28/23 History latanoprost 0.005 % eye drops 1 drp ophthalmic (eye) BEDTIME 04/30/21 01/29/23 01/28/23 History metformin 1,000 mg tablet 1 tab PO BID 04/30/21 01/29/23 01/28/23 History multivitamin 1 tab PO DAILY 04/30/21 01/29/23 01/28/23 History sitagliptin phosphate 100 mg 1 tab PO BEDTIME 04/30/21 01/29/23 01/28/23 History tablet (Januvia) vitamins A,C,B-vxsz-kuzbdg 4,296 1 cap PO BID 04/30/21 01/29/23 01/28/23 History mcg-226 mg-90 mg capsule (PreserVision AREDS) isosorbide mononitrate 60 mg 60 mg PO DAILY 01/29/23 01/29/23 01/28/23 History tablet,extended release 24 hr losartan 25 mg tablet 25 mg PO DAILY 01/29/23 01/29/23 01/28/23 History metoprolol succinate 100 mg 100 mg PO BEDTIME 01/29/23 01/29/23 01/28/23 History tablet,extended release 24 hr Physical Exam Vital Signs: Vital Signs: Last Vital Signs Temp 99.4 F 01/29/23 13:09 Pulse 66 01/29/23 13:09 Resp 16 01/29/23 13:09 BP 147/70 H 01/29/23 13:09 Pulse Ox 96 01/29/23 13:09 O2 Del Method Room Air 01/29/23 13:09 BMI result Body Mass Index 24.5 Const: Other: Appears a little uncomfortable General: no acute distress Orientation/consciousness: patient oriented x3 Neck: Neck: Yes no lymphadenopathy Resp: Auscultation: clear to auscultation bilaterally Cardio: Rhythm: regular rhythm GI: Other: Stoma on left side of the abdomen, appliance appears empty at this time Palpation (GI): Soft to palpation, Tenderness to palpation present (GI) (Minimal diffuse tenderness), no guarding and not rigid Neuro: General: patient oriented x3 Results Results Labs: Short CBC 01/29/23 Range/Units 10:28 WBC 9.5 (4.8-10.8) X10*3/uL Hgb 11.8 L D (14.0-18.0) g/dl Hct 37.8 L D (42.0-52.0) % Plt Count 135 L (160-400) X10*3/uL BMP 01/29/23 10:28 Sodium 142 Potassium 4.5 Chloride 105 Carbon Dioxide 27 BUN 24 H Creatinine 1.38 Calcium 9.9 D Liver Function 01/29/23 Range/Units 10:28 Total Bilirubin 0.6 (0.0-1.0) mg/dL Direct Bilirubin 0.3 (0.0-0.5) mg/dL AST 20 (5-37) U/L ALT 16 (0-40) U/L Alkaline Phosphatase 85 (39-117) U/L Albumin 4.4 (3.5-5.0) g/dL Urine 01/29/23 Range/Units 10:44 Urine Color Yellow Urine Appearance Clear Urine pH 5.0 (5.0-9.0) Ur Specific [place] 1.020 (1.005-1.025) Urine Protein 300 (3+) H (Neg-Trace) mg/dL Urine Glucose (UA) Negative (Negative) mg/dL Abdomen CT scan report/results: report reviewed and image reviewed CT scan - chest: report reviewed and image reviewed CT scan - pelvis: report reviewed and image reviewed Additional studies: Laboratory Results WBC 9.5 X10*3/uL (4.8-10.8) 01/29/23 10:28 RBC 4.23 X10*6/uL (4.60-5.80) L D 01/29/23 10:28 Hgb 11.8 g/dl (14.0-18.0) L D 01/29/23 10:28 Hct 37.8 % (42.0-52.0) L D 01/29/23 10:28 MCV 89.4 fL (80.0-98.0) 01/29/23 10:28 MCH 27.9 pg (27.0-33.0) 01/29/23 10:28 MCHC 31.2 g/dl (31.0-36.0) 01/29/23 10:28 RDW 14.5 % (11.0-16.0) 01/29/23 10:28 Plt Count 135 X10*3/uL (160-400) L 01/29/23 10:28 MPV 10.8 fL (9.4-12.4) 01/29/23 10:28 Immature Gran % (Auto) 0.3 % (0.0-0.4) 01/29/23 10:28 Neut % (Auto) 91.1 % (45-73) H 01/29/23 10:28 Lymph % (Auto) 4.1 % (20-40) L 01/29/23 10:28 [place] % (Auto) 4.2 % (2-11) 01/29/23 10:28 Eos % (Auto) 0.1 % (0-4) 01/29/23 10:28 Baso % (Auto) 0.2 % (0-2) 01/29/23 10:28 Lymph # (Auto) 0.4 X10*3/uL (1.2-4.9) L 01/29/23 10:28 [place] # (Auto) 0.4 X10*3/uL (0.1-1.2) 01/29/23 10:28 Eos # (Auto) 0.0 X10*3/uL (0.0-0.4) 01/29/23 10:28 Baso # (Auto) 0.0 X10*3/uL (0.0-0.2) 01/29/23 10:28 Abs Immat Gran (auto) 0.03 X10*3/uL (0.00-0.03) 01/29/23 10:28 Absolute Neuts (auto) 8.6 x10*3/uL (2.0-8.3) H 01/29/23 10:28 Absolute Nucleated RBC 0.000 X10*3/uL (0.0-0.012) 01/29/23 10:28 Nucleated RBC % (auto) 0.0 /100WBC (0.0-0.2) 01/29/23 10:28 Smear Tech's Comments VERIFIED 01/29/23 10:28 Sodium 142 mmol/L (135-145) 01/29/23 10:28 Potassium 4.5 mmol/L (3.3-5.1) 01/29/23 10:28 Chloride 105 mmol/L (96-108) 01/29/23 10:28 Carbon Dioxide 27 mmol/L (22-29) 01/29/23 10:28 Anion Gap 15 (12-20) 01/29/23 10:28 BUN 24 mg/dL (9-16) H 01/29/23 10:28 Creatinine 1.38 mg/dL (0.5-1.4) 01/29/23 10:28 Estim Creat Clear Calc 47.8 01/29/23 10:28 Estimated GFR 51 01/29/23 10:28 Random Glucose 163 mg/dL (60-115) H 01/29/23 10:28 Calcium 9.9 mg/dL (8.4-10.2) D 01/29/23 10:28 Magnesium 1.7 mg/dL (1.6-2.6) 01/29/23 10:28 Total Bilirubin 0.6 mg/dL (0.0-1.0) 01/29/23 10:28 Direct Bilirubin 0.3 mg/dL (0.0-0.5) 01/29/23 10:28 AST 20 U/L (5-37) 01/29/23 10:28 ALT 16 U/L (0-40) 01/29/23 10:28 Alkaline Phosphatase 85 U/L (39-117) 01/29/23 10:28 Troponin I High Sens < 2.7 ng/L (<3.5-35.0) 01/29/23 10:28 Total Protein 7.5 g/dL (6.5-8.0) 01/29/23 10:28 Albumin 4.4 g/dL (3.5-5.0) 01/29/23 10:28 Lipase 17 U/L (8-78) 01/29/23 10:28 Urine Color Yellow 01/29/23 10:44 Urine Appearance Clear 01/29/23 10:44 Urine pH 5.0 (5.0-9.0) 01/29/23 10:44 Ur Specific [place] 1.020 (1.005-1.025) 01/29/23 10:44 Urine Protein 300 (3+) mg/dL (Neg-Trace) H 01/29/23 10:44 Urine Glucose (UA) Negative mg/dL (Negative) 01/29/23 10:44 Urine Ketones 15 mg/dL (Negative) 01/29/23 10:44 Urine Blood Trace (Negative) H 01/29/23 10:44 Urine Nitrite Negative (Negative) 01/29/23 10:44 Ur Leukocyte Esterase Negative (Negative) 01/29/23 10:44 Urine RBC 0-2 /HPF (0-2) 01/29/23 10:44 Urine WBC 0-5 /HPF (0-5) 01/29/23 10:44 Ur Squamous Epith Cells 0-2 /HPF (0-2) 01/29/23 10:44 Urine Bacteria None Seen (None Seen) 01/29/23 10:44 Hyaline Casts 0-2 /LPF (0-2) 01/29/23 10:44 Impressions Abdomen/Pelvis CT 01/29/23 11:35 IMPRESSION: 1. Findings compatible with small-bowel obstruction with transition point suspected in the deep pelvis similar to prior CT April 2021 suggesting recurrent small-bowel obstruction. 2. Stable cystic mass/collection in the presacral region overlying the area of prior coccyx resection. 3. Stable bilateral renal calculi. 4. Calcific atherosclerotic disease. 5. Stable spondylosis of the lumbosacral spine. Fleischner guidelines were followed. Chest CT 01/29/23 11:35 IMPRESSION: 1. No acute abnormality in the chest. 2. Calcific atherosclerotic disease. Coronary artery calcification noted. 3. Hepatic steatosis. Fleischner guidelines were followed. Assessment and Plan (1) Small bowel obstruction: Status: Acute He is known to me from a previous admission more than a year ago for similar symptoms. I have reviewed his CAT scan and this shows a bowel obstruction in fecalization in the distal small bowel in the pelvis. This is similar to his CAT scan images from April,. This is likely secondary to adhesions from his previous abdominal surgery with APR. He had an NG tube inserted here in the ER. There was about 500 cc of thin fluid. He does state that he feels a lot more comfortable now. He has labs are unremarkable. The plan is to keep him on the NG tube to low wall suction. He will be hydrated as well. I will order for pain medications as well as Zofran. I plan to repeat his KUB tomorrow. I discussed with him the above. He is familiar with this because of what he went through last year He does understand that there is a small chance that he will require laparotomy if he does not improve within a reasonable period of time or if he has clinical worsening His abdominal exam is otherwise very benign at this point. His was with him during the discussion. He is a known diabetic. Blood sugars are stable at this time. I will consult the hospitalist service in view of his diabetes and history of coronary disease. Quality Stroke Does the patient have a stroke diagnosis?: No VTE Prior VTE?: No VTE Risk Level:: Medical - moderate - high VTE Device Contraindication: N/A - Device Ordered VTE Drug Contraindication: N/A - Med Ordered Procedures Date of Service Date of Service: 01/31/23
--- NOTE | 2023-01-29 16:17 | PHA.MEDREC ---
Pharmacy Consult ? Medication Reconciliation Pharmacy has completed the medication reconciliation. Patient had rx bottle with him. Charmaine Toribio, KaroD
[2023-01-29] MEDS: 0.9 % Sodium Chloride 1,000 ML 100 ML IVCONT (16:36)
[2023-01-29 17:01] VITALS: BP 173/82; PULSE 75; RESP 16; O2SAT 94
[2023-01-29] MEDS: Morphine Sulfate 4 MG/ML CARTRIDGE 3 MG IVPUSH (17:02)
[2023-01-29 18:00] VITALS: BP 143/77; PULSE 81; RESP 16; TEMP 36.6; O2SAT 94
--- NOTE | 2023-01-29 18:16 | MHC.EDTECH ---
Brought patient a cup of ice water.
[2023-01-29 20:13] VITALS: BP 152/84; PULSE 83; RESP 20; TEMP 37.3; O2SAT 94
--- NOTE | 2023-01-29 20:41 | P.CONHOSP_ITS ---
History of Present Illness Data of Consult Service Date: 01/29/23 Primary Care Provider: Julio Cesar Swan MD [facility] Reason for consult: Medical management Patient is a 67-year-old male with a PMH significant for hx of rectal CA s/p APR in 2008 with multiple prior surgeries, colostomy, SBO, HTN, non-insulin dependent diabetes, and CAD s/p CABG on ASA/Plavix who was admitted to the hospital under General surgery for SBO. Medical consult for routine medical management. Patient seen at bedtime where he is resting comfortably. NGT in place with little output. Patient's pain currently well controlled, rates it as a 1.5/10. Pain located mostly in lower abdomen. Had 1 episode of nausea and vomiting while in the ED, but none since. Has not yet began passing gas. Review of Systems 2 Review of Systems: Mild lower abdominal pain Mild nausea, no vomiting since 1 episode in ED earlier in the day Denies flatus No chest pain/pressure, palpitations Denies shortness of breath [facility] Medical History History of rectal cancer Coronary artery disease HTN (hypertension) Diabetes Colorectal cancer Surgical History History of coronary artery bypass graft History of rectal surgery Social History Household Members: Children Household Members Other:: Son intermittently live with patient Housing: House Do you presently have visiting nurse or other home services: No Alcohol intake: current Alcohol intake frequency: holidays/special occasions only Patient Tobacco Use Status: Never used Tobacco Smoked in Last 30 Days: No Patient Interested in Nicotine Replacement: No Use of substances other than those prescribed or required for medical reasons: No Currently Displaying Signs/Symptoms of Drug Intoxication Withdrawal: No Have you been hit, kicked, punched, or otherwise hurt by someone within the past year? If so, by whom?: No Do you feel safe in your current relationship?: Yes Is there a partner from a previous relationship who is making you feel unsafe now?: No Are you made to feel afraid or neglected: No Advance Directives: No Advance Directives Information Provided: No Do you have thoughts of harming others: None Do you have a plan to hurt others: No Plan Recently lost weight without trying: No Eating poorly because of decreased appetite: No Nutrition Risks: No Nutritional Risk service: No Current occupational status: employed Meds Allergies Allergy/AdvReac Type Severity Reaction Status Date / Time No Known Allergies Allergy Verified 04/29/21 22:49 Active Medications: Current Medications Heparin Sodium (Porcine) (Heparin Sodium,Porcine 5,000 Unit/Ml Vial) 5,000 unit SUBCUT Q8H CRISTHIAN Sodium Chloride (Ns) 1,000 mls @ 100 mls/hr IVCONT .Q10H CRISTHIAN Last Admin: 01/29/23 16:36 Dose: 100 mls/hr Morphine Sulfate (Morphine Sulfate 4 Mg/Ml Cartridge) 3 mg IVPUSH Q4H PRN; Protocol PRN Reason: Pain, Severe (Pain Scale 7-10) Last Admin: 01/29/23 17:02 Dose: 3 mg Ondansetron HCl (Ondansetron Hcl 4 Mg/2 Ml Vial) 4 mg IVPUSH Q6H PRN PRN Reason: Nausea Sodium Chloride (0.9 % Sodium Chloride Flush 3 Ml Syringe) 3 ml IVFLUSH QSHIFT COUNTS INCLUDE 234 BEDS AT THE [facility] Home Medications Medication Instructions Recorded Confirmed Last Taken Type atorvastatin 40 mg tablet 1 tab PO DAILY 04/30/21 01/29/23 01/28/23 History clopidogrel 75 mg tablet 1 tab PO DAILY 04/30/21 01/29/23 01/28/23 History latanoprost 0.005 % eye drops 1 drp ophthalmic (eye) BEDTIME 04/30/21 01/29/23 01/28/23 History metformin 1,000 mg tablet 1 tab PO BID 04/30/21 01/29/23 01/28/23 History multivitamin 1 tab PO DAILY 04/30/21 01/29/23 01/28/23 History sitagliptin phosphate 100 mg 1 tab PO BEDTIME 04/30/21 01/29/23 01/28/23 History tablet (Januvia) vitamins A,C,L-tblz-volbzv 4,296 1 cap PO BID 04/30/21 01/29/23 01/28/23 History mcg-226 mg-90 mg capsule (PreserVision AREDS) isosorbide mononitrate 60 mg 60 mg PO DAILY 01/29/23 01/29/23 01/28/23 History tablet,extended release 24 hr losartan 25 mg tablet 25 mg PO DAILY 01/29/23 01/29/23 01/28/23 History metoprolol succinate 100 mg 100 mg PO BEDTIME 01/29/23 01/29/23 01/28/23 History tablet,extended release 24 hr Physical Exam 2 Vital Signs and Narrative: Vital Signs: Last Vital Signs Temp 99.1 F 01/29/23 20:13 Pulse 83 01/29/23 20:13 Resp 20 01/29/23 20:13 BP 152/84 H 01/29/23 20:13 Pulse Ox 94 01/29/23 20:13 O2 Del Method Room Air 01/29/23 20:13 BMI result Body Mass Index 24.5 General: AOx3, no acute distress Resp: CTA bilaterally CVS: S1, S2, RRR GI: Mildly distended with minimal lower abdominal tenderness, NGT currently with no output Skin: Warm, dry Neuro: Cranial nerves II-XII grossly intact bilaterally. Motor grossly intact bilaterally Extremities: No edema Psych: Appropriate affect Results Labs 01/29/23 10:28 01/29/23 10:28 Labs: Laboratory Results - last 24 hr 01/29/23 01/29/23 10:28 10:44 MCV 89.4 MCH 27.9 MCHC 31.2 RDW 14.5 Plt Count 135 L MPV 10.8 Immature Gran % (Auto) 0.3 Neut % (Auto) 91.1 H Lymph % (Auto) 4.1 L [place] % (Auto) 4.2 Eos % (Auto) 0.1 Baso % (Auto) 0.2 Lymph # (Auto) 0.4 L [place] # (Auto) 0.4 Eos # (Auto) 0.0 Baso # (Auto) 0.0 Abs Immat Gran (auto) 0.03 Absolute Neuts (auto) 8.6 H Absolute Nucleated RBC 0.000 Nucleated RBC % (auto) 0.0 Smear Tech's Comments VERIFIED Anion Gap 15 Estim Creat Clear Calc 47.8 Estimated GFR 51 Random Glucose 163 H Calcium 9.9 D Magnesium 1.7 Total Bilirubin 0.6 Direct Bilirubin 0.3 AST 20 ALT 16 Alkaline Phosphatase 85 Total Protein 7.5 Albumin 4.4 Lipase 17 Urine Color Yellow Urine Appearance Clear Urine pH 5.0 Ur Specific [place] 1.020 Urine Protein 300 (3+) H Urine Glucose (UA) Negative Urine Ketones 15 Urine Blood Trace H Urine Nitrite Negative Ur Leukocyte Esterase Negative Urine RBC 0-2 Urine WBC 0-5 Ur Squamous Epith Cells 0-2 Urine Bacteria None Seen Hyaline Casts 0-2 Imaging Radiologist's Impressions: Impressions Abdomen/Pelvis CT 01/29/23 11:35 IMPRESSION: 1. Findings compatible with small-bowel obstruction with transition point suspected in the deep pelvis similar to prior CT April 2021 suggesting recurrent small-bowel obstruction. 2. Stable cystic mass/collection in the presacral region overlying the area of prior coccyx resection. 3. Stable bilateral renal calculi. 4. Calcific atherosclerotic disease. 5. Stable spondylosis of the lumbosacral spine. Fleischner guidelines were followed. Chest CT 01/29/23 11:35 IMPRESSION: 1. No acute abnormality in the chest. 2. Calcific atherosclerotic disease. Coronary artery calcification noted. 3. Hepatic steatosis. Fleischner guidelines were followed. Chest X-Ray 01/29/23 17:10 IMPRESSION: Nasogastric tube catheter end hole and side hole in stomach. Assessment and Plan (1) Small bowel obstruction: Status: Acute Plan Patient is a 67-year-old male with a PMH significant for hx of rectal CA s/p APR in 2008 with multiple prior surgeries, colostomy, SBO, HTN, non-insulin dependent diabetes, and CAD s/p CABG on ASA/Plavix who was admitted to the hospital under General surgery for SBO. Medical consult for routine medical management. Small-bowel obstruction Plan as per General surgery Lpx-[id number] diabetes type 2 Sugars well controlled Hold Januvia and metformin Will place on sliding scale insulin POC q6hr HTN Continue losartan, metoprolol CAD/HLD Hold Plavix d/t need for possible surgery Continue statin Attending: Dr. Henning Thank you for allowing us to participate in the care of this patient. Signing off at this time. Please re-consult if any acute complaints or issues arise.
[2023-01-29] MEDS: Metoprolol Succinate ER 100 MG TAB.ER.24H PO (21:58)
[2023-01-29] MEDS: Latanoprost 0.005 % Ophth Sol 2.5 ML DROPS 1 DROP EYE-BOTH (21:58)
[2023-01-29 23:37] LABS: Glucose, Whole Blood 168 mg/dL (60-115)
[2023-01-30 03:05] VITALS: BP 153/70; PULSE 73; RESP 16; TEMP 37.3; O2SAT 95
[2023-01-30] MEDS: 0.9 % Sodium Chloride 1,000 ML 100 ML IVCONT ×3 (04:01→21:50)
--- NOTE | 2023-01-30 05:10 | PC.NURSE ---
pt takes ice chips throughout the night for the dry mouth. NG tube working well with over 800 mL output. pt colostomy collecting some gases and bowel moderate amount. pt feels much better. will continue to monitor.
[2023-01-30 05:25] LABS: Glucose, Whole Blood 154 mg/dL (60-115)
[2023-01-30 06:41] LABS: Hematocrit 40.3 % (42.0-52.0); Hemoglobin 12.7 g/dl (14.0-18.0); Mean Corpuscular HGB Conc 31.5 g/dl (31.0-36.0); Mean Corpuscular Hemoglobin 28.1 pg (27.0-33.0); Mean Corpuscular Volume 89.2 fL (80.0-98.0); Mean Platelet Volume 11.6 fL (9.4-12.4); Platelet Count 164 X10*3/uL (160-400); Red Blood Count 4.52 X10*6/uL (4.60-5.80); Red Cell Distribution Width 14.7 % (11.0-16.0)
[2023-01-30 06:48] LABS: WBC ABN SCTR FOR CBC 1
[2023-01-30 07:31] LABS: Atypical Lymphs Percent Manual 1 % (0-6); Band Neutrophils Percent 27 % (3-5); Basophils Percent Manual 2 % (0-2); Eosinophils Percent Manual 9 % (0-4); Lymphocytes Percent Manual 11 % (20-40); Monocytes Percent Manual 15 % (2-11); Neutrophils Percent Manual 35 % (45-73)
[2023-01-30 07:33] LABS: Anion Gap 16 (12-20); Blood Urea Nitrogen 34 mg/dL (9-16); Carbon Dioxide 26 mmol/L (22-29); Chloride 106 mmol/L (96-108); Creatinine Clr Calc Pharmacy 51.2; Estimated Glomerular Filt Rate 55; Glucose Random 164 mg/dL (60-115); Potassium 4.2 mmol/L (3.3-5.1); Sodium 144 mmol/L (135-145)
[2023-01-30 07:38] LABS: Acanthocytes 1+ (0-2) /OIF; Ovalocytes 1+ (5-14) /OIF; RBC Morphology NOTED; Toxic Vacuolation PRESENT
[2023-01-30 07:39] LABS: Large Platelet PRESENT; Platelet Estimate NORMAL (NORMAL); Platelet Morphology Comment NORMAL
[2023-01-30 07:40] LABS: Basophils Abs Manual 0.1 X10*3/uL (0.0-0.2); Eosinophils Absolute Manual 0.3 X10*3/uL (0.0-0.4); Lymphocytes Absolute Manual 0.4 X10*3/uL (1.2-4.9); Monocytes Absolute Manual 0.6 X10*3/uL (0.1-1.2); Neutrophils Absolute Manual 2.4 X10*3/uL (2.0-8.3); White Blood Count 3.8 X10*3/uL (4.8-10.8)
[2023-01-30 07:57] LABS: Calcium 8.7 mg/dL (8.4-10.2)
[2023-01-30 08:00] VITALS: BP 119/69; PULSE 72; RESP 18; TEMP 37.1; O2SAT 97
[2023-01-30] MEDS: Heparin Sodium,Porcine 5,000 UNIT/ML VIAL 5000 UNIT SUBCUT ×2 (08:50→17:38)
[2023-01-30] MEDS: Isosorbide Mononitrate 60 MG TAB.ER.24H PO (08:51)
[2023-01-30] MEDS: Multivitamin TABLET 1 TAB PO (08:51)
[2023-01-30] MEDS: Losartan Potassium 25 MG TABLET PO (08:51)
[2023-01-30] MEDS: Atorvastatin Calcium 40 MG TABLET PO (08:51)
--- NOTE | 2023-01-30 09:49 | PM.PNGS ---
Subjective Subjective Date of Service: 01/31/23 Interval history: feels much better started to have large amounts of flatus and stool from his colostomy at 06:00 o'clock this morning pain appears to be resolved Physical Exam Vital Signs: Vital Signs: Last Vital Signs Temp 98.8 F 01/30/23 08:00 Pulse 72 01/30/23 08:00 Resp 18 01/30/23 08:00 BP 119/69 01/30/23 08:00 Pulse Ox 97 01/30/23 08:00 O2 Del Method Room Air 01/30/23 08:00 BMI result Body Mass Index 24.5 Const: General: comfortable and no acute distress Orientation/consciousness: patient oriented x3 Neck: Neck: Yes no lymphadenopathy Resp: Auscultation: clear to auscultation bilaterally Cardio: Rhythm: regular rhythm GI: Other: colostomy with good amount of gas and stool Palpation (GI): Soft to palpation, nontender and no guarding Neuro: General: patient oriented x3 Objective Data Active Medications Atorvastatin Calcium (Atorvastatin Calcium 40 Mg Tablet) 40 mg PO DAILY [facility] Last Admin: 01/30/23 08:51 Dose: 40 mg Documented By: KOREY Dextrose (Dextrose 50 % 25 Gm/50 Ml Syringe) 25 gm IVPUSH Q15M PRN; Protocol PRN Reason: per Hypoglycemia Standing Ord. Glucose (Glucose Gel 15 Gm Gel..Gram.) 15 gm PO Q15M PRN; Protocol PRN Reason: per Hypoglycemia Standing Ord. Heparin Sodium (Porcine) (Heparin Sodium,Porcine 5,000 Unit/Ml Vial) 5,000 unit SUBCUT Q8H [facility] Last Admin: 01/30/23 08:50 Dose: 5,000 unit Documented By: KOREY Sodium Chloride (Ns) 1,000 mls @ 100 mls/hr IVCONT .Q10H [facility] Last Admin: 01/30/23 04:01 Dose: 100 mls/hr Documented By: CJ Insulin Human Lispro (Insulin Lispro 100 Unit/Ml 3 Ml Vial) 0 unit SUBCUT QIDACHS [facility]; Protocol Last Admin: 01/30/23 08:34 Dose: Not Given Documented By: KOREY Non-Admin Reason: NPO Isosorbide Mononitrate (Isosorbide Mononitrate 60 Mg Tab.Er.24h) 60 mg PO DAILY [facility]; Protocol Last Admin: 01/30/23 08:51 Dose: 60 mg Documented By: KOREY Latanoprost (Latanoprost 0.005 % Ophth May 2.5 Ml Drops) 1 drop EYE-BOTH BEDTIME [facility] Last Admin: 01/29/23 21:58 Dose: 1 drop Documented By: CJ Losartan Potassium (Losartan Potassium 25 Mg Tablet) 25 mg PO DAILY [facility]; Protocol Last Admin: 01/30/23 08:51 Dose: 25 mg Documented By: KOREY Metoprolol Succinate (Metoprolol Succinate Er 100 Mg Tab.Er.24h) 100 mg PO BEDTIME [facility]; Protocol Last Admin: 01/29/23 21:58 Dose: 100 mg Documented By: CJ Morphine Sulfate (Morphine Sulfate 4 Mg/Ml Cartridge) 3 mg IVPUSH Q4H PRN; Protocol PRN Reason: Pain, Severe (Pain Scale 7-10) Last Admin: 01/29/23 17:02 Dose: 3 mg Documented By: KORINA Multivitamins/Vitamin C (Multivitamin Tablet) 1 tab PO DAILY [facility] Last Admin: 01/30/23 08:51 Dose: 1 tab Documented By: KOREY Ondansetron HCl (Ondansetron Hcl 4 Mg/2 Ml Vial) 4 mg IVPUSH Q6H PRN PRN Reason: Nausea Last Admin: 01/29/23 22:48 Dose: 4 mg Documented By: CJ Sodium Chloride (0.9 % Sodium Chloride Flush 3 Ml Syringe) [facility] Last Admin: 01/30/23 08:34 Dose: Not Given Documented By: KOREY Non-Admin Reason: IV Running Labs 01/30/23 06:05 01/30/23 06:05 Labs: Laboratory Results - last 24 hr 01/29/23 01/29/23 01/29/23 10:28 10:44 23:33 MCV 89.4 MCH 27.9 MCHC 31.2 RDW 14.5 Plt Count 135 L MPV 10.8 Immature Gran % (Auto) 0.3 Neut % (Auto) 91.1 H Lymph % (Auto) 4.1 L [place] % (Auto) 4.2 Eos % (Auto) 0.1 Baso % (Auto) 0.2 Lymph # (Auto) 0.4 L [place] # (Auto) 0.4 Eos # (Auto) 0.0 Baso # (Auto) 0.0 Abs Immat Gran (auto) 0.03 Absolute Neuts (auto) 8.6 H Absolute Nucleated RBC 0.000 Nucleated RBC % (auto) 0.0 Neutrophils % (Manual) Band Neutrophils % Lymphocytes % (Manual) Atypical Lymphs % (Man) Monocytes % (Manual) Eosinophils % (Manual) Basophils % (Manual) Abs Neuts (Manual) Lymphocytes # (Manual) Monocytes # (Manual) Eosinophils # (Manual) Basophils # (Manual) Toxic Vacuolation Platelet Estimate Large Platelets Plt Morphology Comment RBC Morphology Ovalocytes Acanthocytes (Spur) Smear Tech's Comments VERIFIED Anion Gap 15 Estim Creat Clear Calc 47.8 Estimated GFR 51 POC Glucose 168 H Random Glucose 163 H Calcium 9.9 D Magnesium 1.7 Total Bilirubin 0.6 Direct Bilirubin 0.3 AST 20 ALT 16 Alkaline Phosphatase 85 Total Protein 7.5 Albumin 4.4 Lipase 17 Urine Color Yellow Urine Appearance Clear Urine pH 5.0 Ur Specific Olivia 1.020 Urine Protein 300 (3+) H Urine Glucose (UA) Negative Urine Ketones 15 Urine Blood Trace H Urine Nitrite Negative Ur Leukocyte Esterase Negative Urine RBC 0-2 Urine WBC 0-5 Ur Squamous Epith Cells 0-2 Urine Bacteria None Seen Hyaline Casts 0-2 01/30/23 01/30/23 05:20 06:05 MCV 89.2 MCH 28.1 MCHC 31.5 RDW 14.7 Plt Count 164 MPV 11.6 Immature Gran % (Auto) Cancelled Neut % (Auto) Cancelled Lymph % (Auto) Cancelled [place] % (Auto) Cancelled Eos % (Auto) Cancelled Baso % (Auto) Cancelled Lymph # (Auto) Cancelled [place] # (Auto) Cancelled Eos # (Auto) Cancelled Baso # (Auto) Cancelled Abs Immat Gran (auto) Cancelled Absolute Neuts (auto) Cancelled Absolute Nucleated RBC 0.000 Nucleated RBC % (auto) 0.0 Neutrophils % (Manual) 35 L Band Neutrophils % 27 H Lymphocytes % (Manual) 11 L Atypical Lymphs % (Man) 1 Monocytes % (Manual) 15 H Eosinophils % (Manual) 9 H Basophils % (Manual) 2 Abs Neuts (Manual) 2.4 Lymphocytes # (Manual) 0.4 L Monocytes # (Manual) 0.6 Eosinophils # (Manual) 0.3 Basophils # (Manual) 0.1 Toxic Vacuolation PRESENT Platelet Estimate NORMAL Large Platelets PRESENT Plt Morphology Comment NORMAL RBC Morphology NOTED Ovalocytes 1+ (5-14) Acanthocytes (Spur) 1+ (0-2) Smear Tech's Comments Anion Gap 16 Estim Creat Clear Calc 51.2 Estimated GFR 55 POC Glucose 154 H Random Glucose 164 H Calcium 8.7 D Magnesium Total Bilirubin Direct Bilirubin AST ALT Alkaline Phosphatase Total Protein Albumin Lipase Urine Color Urine Appearance Urine pH Ur Specific [place] Urine Protein Urine Glucose (UA) Urine Ketones Urine Blood Urine Nitrite Ur Leukocyte Esterase Urine RBC Urine WBC Ur Squamous Epith Cells Urine Bacteria Hyaline Casts Procedures Date of Service Date of Service: 01/31/23 Progress Note: A&P Assessment and plan (1) Small bowel obstruction: Status: Acute Assessment and Plan: clinically resolved has good amounts of air and stool from the stoma abdomen soft, benign, not distended, nontender KUB follow-up - nonspecific will check on NG tube output for today and likely DC this later labs okay appreciate hospitalist input Time Spent With Patient Time: Total time managing care of this patient today ____ minutes. Quality Stroke Does the patient have a stroke diagnosis?: No VTE Prior VTE?: No VTE Risk Level:: Medical - moderate - high VTE Device Contraindication: N/A - Device Ordered VTE Drug Contraindication: N/A - Med Ordered
[2023-01-30 11:34] LABS: Glucose, Whole Blood 137 mg/dL (60-115)
--- NOTE | 2023-01-30 12:07 | MHC.CM.PN ---
pt lives alone has no servies is independent has own ride home dc plan home no servies
--- NOTE | 2023-01-30 12:30 | P.PNIM_ITS ---
Subjective Subjective Date of Service: 01/30/23 Interval History: Patient began having large amounts of lattice and stool from colostomy early this morning Abdominal pain resolved Nausea resolved Patient complains of discomfort from NGT, but otherwise has no acute medical complaints at this time NGT with copious amounts of bilious discharge Physical Exam 2 Vital Signs: Vital Signs: Last Vital Signs Temp 98.8 F 01/30/23 08:00 Pulse 72 01/30/23 08:00 Resp 18 01/30/23 08:00 BP 119/69 01/30/23 08:00 Pulse Ox 97 01/30/23 08:00 O2 Del Method Room Air 01/30/23 08:00 BMI result Body Mass Index 24.5 General: AOx3, no acute distress Resp: CTA bilaterally CVS: S1, S2, RRR GI: +BS, NT, no distention, NGT in place with copious amounts of billous discharge. Colostomy with gas and small amount of stool Skin: Warm, dry Neuro: Cranial nerves II-XII grossly intact bilaterally. Motor grossly intact bilaterally Extremities: No edema Psych: Appropriate affect Objective Data Active Medications Atorvastatin Calcium (Atorvastatin Calcium 40 Mg Tablet) 40 mg PO DAILY [facility] Last Admin: 01/30/23 08:51 Dose: 40 mg Documented By: KOREY Dextrose (Dextrose 50 % 25 Gm/50 Ml Syringe) 25 gm IVPUSH Q15M PRN; Protocol PRN Reason: per Hypoglycemia Standing Ord. Glucose (Glucose Gel 15 Gm Gel..Gram.) 15 gm PO Q15M PRN; Protocol PRN Reason: per Hypoglycemia Standing Ord. Heparin Sodium (Porcine) (Heparin Sodium,Porcine 5,000 Unit/Ml Vial) 5,000 unit SUBCUT Q8H [facility] Last Admin: 01/30/23 08:50 Dose: 5,000 unit Documented By: KOREY Sodium Chloride (Ns) 1,000 mls @ 100 mls/hr IVCONT .Q10H [facility] Last Admin: 01/30/23 11:30 Dose: 100 mls/hr Documented By: KOREY Insulin Human Lispro (Insulin Lispro 100 Unit/Ml 3 Ml Vial) 0 unit SUBCUT QIDACHS [facility]; Protocol Last Admin: 01/30/23 11:27 Dose: Not Given Documented By: KOREY Non-Admin Reason: No Insulin Coverage Isosorbide Mononitrate (Isosorbide Mononitrate 60 Mg Tab.Er.24h) 60 mg PO DAILY [facility]; Protocol Last Admin: 01/30/23 08:51 Dose: 60 mg Documented By: KOREY Latanoprost (Latanoprost 0.005 % Ophth May 2.5 Ml Drops) 1 drop EYE-BOTH BEDTIME [facility] Last Admin: 01/29/23 21:58 Dose: 1 drop Documented By: CJ Losartan Potassium (Losartan Potassium 25 Mg Tablet) 25 mg PO DAILY [facility]; Protocol Last Admin: 01/30/23 08:51 Dose: 25 mg Documented By: KOREY Metoprolol Succinate (Metoprolol Succinate Er 100 Mg Tab.Er.24h) 100 mg PO BEDTIME [facility]; Protocol Last Admin: 01/29/23 21:58 Dose: 100 mg Documented By: CJ Morphine Sulfate (Morphine Sulfate 4 Mg/Ml Cartridge) 3 mg IVPUSH Q4H PRN; Protocol PRN Reason: Pain, Severe (Pain Scale 7-10) Last Admin: 01/29/23 17:02 Dose: 3 mg Documented By: KORINA Multivitamins/Vitamin C (Multivitamin Tablet) 1 tab PO DAILY [facility] Last Admin: 01/30/23 08:51 Dose: 1 tab Documented By: KOREY Ondansetron HCl (Ondansetron Hcl 4 Mg/2 Ml Vial) 4 mg IVPUSH Q6H PRN PRN Reason: Nausea Last Admin: 01/29/23 22:48 Dose: 4 mg Documented By: CJ Sodium Chloride (0.9 % Sodium Chloride Flush 3 Ml Syringe) 3 ml IVFLUSH QSHIFT [facility] Last Admin: 01/30/23 08:34 Dose: Not Given Documented By: KOREY Non-Admin Reason: IV Running Labs 01/30/23 06:05 01/30/23 06:05 Labs: Laboratory Results - last 24 hr 01/29/23 01/30/23 01/30/23 23:33 05:20 06:05 MCV 89.2 MCH 28.1 MCHC 31.5 RDW 14.7 Plt Count 164 MPV 11.6 Immature Gran % (Auto) Cancelled Neut % (Auto) Cancelled Lymph % (Auto) Cancelled [place] % (Auto) Cancelled Eos % (Auto) Cancelled Baso % (Auto) Cancelled Lymph # (Auto) Cancelled [place] # (Auto) Cancelled Eos # (Auto) Cancelled Baso # (Auto) Cancelled Abs Immat Gran (auto) Cancelled Absolute Neuts (auto) Cancelled Absolute Nucleated RBC 0.000 Nucleated RBC % (auto) 0.0 Neutrophils % (Manual) 35 L Band Neutrophils % 27 H Lymphocytes % (Manual) 11 L Atypical Lymphs % (Man) 1 Monocytes % (Manual) 15 H Eosinophils % (Manual) 9 H Basophils % (Manual) 2 Abs Neuts (Manual) 2.4 Lymphocytes # (Manual) 0.4 L Monocytes # (Manual) 0.6 Eosinophils # (Manual) 0.3 Basophils # (Manual) 0.1 Toxic Vacuolation PRESENT Platelet Estimate NORMAL Large Platelets PRESENT Plt Morphology Comment NORMAL RBC Morphology NOTED Ovalocytes 1+ (5-14) Acanthocytes (Spur) 1+ (0-2) Anion Gap 16 Estim Creat Clear Calc 51.2 Estimated GFR 55 POC Glucose 168 H 154 H Random Glucose 164 H Calcium 8.7 D 01/30/23 11:22 MCV MCH MCHC RDW Plt Count MPV Immature Gran % (Auto) Neut % (Auto) Lymph % (Auto) [place] % (Auto) Eos % (Auto) Baso % (Auto) Lymph # (Auto) [place] # (Auto) Eos # (Auto) Baso # (Auto) Abs Immat Gran (auto) Absolute Neuts (auto) Absolute Nucleated RBC Nucleated RBC % (auto) Neutrophils % (Manual) Band Neutrophils % Lymphocytes % (Manual) Atypical Lymphs % (Man) Monocytes % (Manual) Eosinophils % (Manual) Basophils % (Manual) Abs Neuts (Manual) Lymphocytes # (Manual) Monocytes # (Manual) Eosinophils # (Manual) Basophils # (Manual) Toxic Vacuolation Platelet Estimate Large Platelets Plt Morphology Comment RBC Morphology Ovalocytes Acanthocytes (Spur) Anion Gap Estim Creat Clear Calc Estimated GFR POC Glucose 137 H Random Glucose Calcium Assessment and Plan (1) Small bowel obstruction: Status: Acute Plan Patient is a 67-year-old male with a PMH significant for hx of rectal CA s/p APR in 2008 with multiple prior surgeries, colostomy, SBO, HTN, non-insulin dependent diabetes, and CAD s/p CABG on ASA/Plavix who was admitted to the hospital under General surgery for SBO. Medical consult for routine medical management. Small-bowel obstruction Clinically resolved as of this morning Plan as per General surgery Ouk-aptqvoy-mkqkczjvh diabetes type 2 Sugars continue to be well-controlled Continue sliding scale insulin Continue holding Januvia and metformin while in hospital, resume at discharge Diabetic diet once diet advanced HTN Continue losartan, metoprolol CAD/HLD Will restart Plavix as SBO seems resolved and likelihood of surgery is slim Continue statin Attending: Dr. Arango Thank you for allowing us to participate in the care of this patient. Signing off at this time. Please re-consult if any acute complaints or issues arise. Quality Stroke Does the patient have a stroke diagnosis?: No VTE Prior VTE?: No VTE Risk Level:: Medical - moderate - high VTE Device Contraindication: N/A - Device Ordered VTE Drug Contraindication: N/A - Med Ordered
[2023-01-30] MEDS: Clopidogrel Bisulfate 75 MG TABLET PO (13:33)
--- NOTE | 2023-01-30 14:22 | PM.EVENT ---
Event Note Date of Service: 01/30/23 Event Note: continues to feel well Denies abdominal pain Says stoma has had output all they including gas NG-tube output in him all since this morning abdomen soft, benign, nondistended will DC NG tube ok to have sips of clear liquids Time Spent With Patient Time: Total time managing care of this patient today ____ minutes.
[2023-01-30 15:35] VITALS: BP 101/55; PULSE 66; RESP 18; TEMP 36.6; O2SAT 96
[2023-01-30 16:31] LABS: Glucose, Whole Blood 119 mg/dL (60-115)
[2023-01-30 20:00] VITALS: BP 107/55; PULSE 76; RESP 18; TEMP 37.2; O2SAT 95
[2023-01-30 21:21] LABS: Glucose, Whole Blood 97 mg/dL (60-115)
[2023-01-30] MEDS: Metoprolol Succinate ER 100 MG TAB.ER.24H PO (21:49)
[2023-01-30] MEDS: Latanoprost 0.005 % Ophth Sol 2.5 ML DROPS 1 DROP EYE-BOTH (21:50)
[2023-01-31] MEDS: Heparin Sodium,Porcine 5,000 UNIT/ML VIAL 5000 UNIT SUBCUT ×2 (02:27→08:42)
[2023-01-31 04:00] VITALS: BP 116/58; PULSE 72; RESP 16; TEMP 37.2; O2SAT 96
[2023-01-31 07:30] VITALS: BP 125/62; PULSE 60; RESP 18; TEMP 36.5; O2SAT 97
[2023-01-31 07:44] LABS: Glucose, Whole Blood 87 mg/dL (60-115)
[2023-01-31] MEDS: 0.9 % Sodium Chloride 1,000 ML 100 ML IVCONT (08:41)
[2023-01-31] MEDS: Losartan Potassium 25 MG TABLET PO (08:42)
[2023-01-31] MEDS: Multivitamin TABLET 1 TAB PO (08:42)
[2023-01-31] MEDS: Clopidogrel Bisulfate 75 MG TABLET PO (08:42)
[2023-01-31] MEDS: Isosorbide Mononitrate 60 MG TAB.ER.24H PO (08:42)
[2023-01-31] MEDS: Atorvastatin Calcium 40 MG TABLET PO (08:42)
--- NOTE | 2023-01-31 10:18 | PM.PNGS ---
Subjective Subjective Date of Service: 02/04/23 Interval history: continues to feel well denies abdominal pain good stoma function Physical Exam Vital Signs: Vital Signs: Last Vital Signs Temp 97.7 F 01/31/23 07:30 Pulse 60 01/31/23 07:30 Resp 18 01/31/23 07:30 BP 125/62 01/31/23 07:30 Pulse Ox 97 01/31/23 07:30 O2 Del Method Room Air 01/31/23 07:30 BMI result Body Mass Index 24.5 Const: General: comfortable and no acute distress Resp: Effort & Inspection: normal respiratory effort Cardio: Rate: regular rate GI: Other: good stoma output, stool and gas Inspection: No distended Palpation (GI): Soft to palpation, not firm, nontender and no guarding Objective Data Active Medications Atorvastatin Calcium (Atorvastatin Calcium 40 Mg Tablet) 40 mg PO DAILY [facility] Last Admin: 01/31/23 08:42 Dose: 40 mg Documented By: PATI Clopidogrel Bisulfate (Clopidogrel Bisulfate 75 Mg Tablet) 75 mg PO DAILY [facility] Last Admin: 01/31/23 08:42 Dose: 75 mg Documented By: PATI Dextrose (Dextrose 50 % 25 Gm/50 Ml Syringe) 25 gm IVPUSH Q15M PRN; Protocol PRN Reason: per Hypoglycemia Standing Ord. Glucose (Glucose Gel 15 Gm Gel..Gram.) 15 gm PO Q15M PRN; Protocol PRN Reason: per Hypoglycemia Standing Ord. Heparin Sodium (Porcine) (Heparin Sodium,Porcine 5,000 Unit/Ml Vial) 5,000 unit SUBCUT Q8H [facility] Last Admin: 01/31/23 08:42 Dose: 5,000 unit Documented By: PATI Sodium Chloride (Ns) 1,000 mls @ 100 mls/hr IVCONT .Q10H [facility] Last Admin: 01/31/23 08:41 Dose: 100 mls/hr Documented By: PATI Insulin Human Lispro (Insulin Lispro 100 Unit/Ml 3 Ml Vial) 0 unit SUBCUT QIDACHS [facility]; Protocol Last Admin: 01/31/23 07:47 Dose: Not Given Documented By: PATI Non-Admin Reason: No Insulin Coverage Isosorbide Mononitrate (Isosorbide Mononitrate 60 Mg Tab.Er.24h) 60 mg PO DAILY [facility]; Protocol Last Admin: 01/31/23 08:42 Dose: 60 mg Documented By: PATI Latanoprost (Latanoprost 0.005 % Ophth May 2.5 Ml Drops) 1 drop EYE-BOTH BEDTIME [facility] Last Admin: 01/30/23 21:50 Dose: 1 drop Documented By: CJ Losartan Potassium (Losartan Potassium 25 Mg Tablet) 25 mg PO DAILY [facility]; Protocol Last Admin: 01/31/23 08:42 Dose: 25 mg Documented By: PATI Metoprolol Succinate (Metoprolol Succinate Er 100 Mg Tab.Er.24h) 100 mg PO BEDTIME [facility]; Protocol Last Admin: 01/30/23 21:49 Dose: 100 mg Documented By: CJ Morphine Sulfate (Morphine Sulfate 4 Mg/Ml Cartridge) 3 mg IVPUSH Q4H PRN; Protocol PRN Reason: Pain, Severe (Pain Scale 7-10) Last Admin: 01/29/23 17:02 Dose: 3 mg Documented By: COOPEB Multivitamins/Vitamin C (Multivitamin Tablet) 1 tab PO DAILY [facility] Last Admin: 01/31/23 08:42 Dose: 1 tab Documented By: PATI Ondansetron HCl (Ondansetron Hcl 4 Mg/2 Ml Vial) 4 mg IVPUSH Q6H PRN PRN Reason: Nausea Last Admin: 01/29/23 22:48 Dose: 4 mg Documented By: CJ Sodium Chloride (0.9 % Sodium Chloride Flush 3 Ml Syringe) 3 ml IVFLUSH QSHIFT [facility] Last Admin: 01/31/23 07:13 Dose: Not Given Documented By: PATI Non-Admin Reason: IV Running Labs 01/30/23 06:05 01/30/23 06:05 Labs: Laboratory Results - last 24 hr 01/30/23 01/30/23 01/30/23 11:22 16:20 20:28 POC Glucose 137 H 119 H 97 01/31/23 07:40 POC Glucose 87 Procedures Date of Service Date of Service: 02/04/23 Progress Note: A&P Assessment and plan (1) Small bowel obstruction: Status: Acute Assessment and Plan: symptoms completely resolved diet as tolerated stoma functioning well if he continues to tolerate diet, okay to DC home later today he understands risks of recurrence symptoms Time Spent With Patient Time: Total time managing care of this patient today ____ minutes. Quality Stroke Does the patient have a stroke diagnosis?: No VTE Prior VTE?: No VTE Risk Level:: Medical - moderate - high VTE Device Contraindication: N/A - Device Ordered VTE Drug Contraindication: N/A - Med Ordered
[2023-01-31 11:34] LABS: Glucose, Whole Blood 88 mg/dL (60-115)
--- NOTE | 2023-01-31 14:20 | MHC.CM.PN ---
PT WILL DC HOME TODAY WITH NO SERVICES VIA PRIVATE TRANSPORT
[2023-01-31 15:33] VITALS: BP 126/73; PULSE 73; RESP 18; TEMP 36.8; O2SAT 96
--- NOTE | 2023-01-31 15:58 | PM.EVENT ---
Event Note Date of Service: 01/31/23 Event Note: continues to tolerate reg diet passing good stool and gas from colostomy abd soft and benign he denies pain or nausea he says he is ready to be discharged Time Spent With Patient Time: Total time managing care of this patient today ____ minutes.
--- NOTE | 2023-02-02 10:27 | PM.DS ---
DS: Providers Provider Date of Service: 01/31/23 Date of admission: 01/29/23 16:20 Primary care physician: Julio Cesar Swan MD Attending physician on admission: Lorne Wong Consults: 01/29/23 16:23 Consult to Hospitalist Routine Comment: Consulting Provider: Hospitalist Reason For Exam: DIABETES, HISTORY OF CORONARY ARTERY DISEASE DS: Diagnosis Discharge Diagnosis (1) Small bowel obstruction: Status: Acute DS: Summary Hospital Course Hospital Course: HPI AT ADMISSION: Paul Bella is a 67 year old male here in the ER for abdominal pain. He says that this started at around 05:00 o'clock yesterday afternoon. He says that persisted overnight so he decided to come to the emergency room at around 09:00 o'clock this morning. He describes 1 episode of vomiting when he came to the ER . He describes the pain as crampy. He has a colostomy from a previous APR. He says that he has had very minimal no output since last night. He has a history of rectal cancer and had undergone APR in [facility] in 2008.. He also had undergone neoadjuvant chemotherapy and radiation before that surgery. He says that he had multiple rectal surgeries after the procedure because of complications with the perineal wound. Otherwise, he says that he has had no other abdominal surgeries. He follows an oncologist in [facility]. He has history of ID in the past. 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 He describes his pain as around a 7 when he 1st came this morning. He says his pain is down to a 1 or 2. I had actually admitted him to the hospital for the same symptoms last April 2021. He stayed in the hospital for 2-3 days then. HOSPITAL COURSE: He was admitted to the surgical service for further treatment of the SBO likely secondary to adhesions. NGT was admitted in the ED with improvement in his symptoms. Nonoperative measures were continued. Hospitalist consult was obtained for management of his medical comorbidities. He had an uncomplicated hospital course. He had improvement in his symptoms and began to pass flatus via his colostomy. His NGT had scant output and was removed later in the day and started on clear liquids. The following day he had complete resolution of his symptoms and colostomy output. He was advanced to a solid diet. He was reassessed later in the day and was tolerating a solid diet without nausea or vomiting and had good GI function. He was discharged to home on 01/31/23 in stable condition. He is to follow up with his PCP. Time Attestation Discharge coordination time: Less than 30 minutes Quality: Safe Use of Opioids Does Pt have an Active Cancer Diagnosis on the Problem List?: No Quality: Stroke Does the patient have a stroke diagnosis?: No Physical Exam Vital Signs: Vital Signs: Last Vital Signs Temp 98.3 F 01/31/23 15:33 Pulse 73 01/31/23 15:33 Resp 18 01/31/23 15:33 BP 126/73 01/31/23 15:33 Pulse Ox 96 01/31/23 15:33 O2 Del Method Room Air 01/31/23 15:33 BMI result Body Mass Index 24.5 Const: General: comfortable and no acute distress GI: Other: good stoma output, stool and gas Inspection: No distended Palpation (GI): Soft to palpation, nontender and no guarding Discharge Plan Discharge Anticipated Discharge Date/Time: 01/31/23 13:00 Patient Disposition: Home, Self-Care Discharge Diagnosis: small-bowel obstruction Referrals: Julio Cesar Swan MD [Primary Care Provider] - 1 Week Discharge Medications: Continued atorvastatin 40 mg tablet 1 tab PO DAILY clopidogrel 75 mg tablet 1 tab PO DAILY metformin 1,000 mg tablet 1 tab PO BID Januvia 100 mg tablet 1 tab PO BEDTIME latanoprost 0.005 % drops 1 drp ophthalmic (eye) BEDTIME multivitamin Tablet 1 tab PO DAILY PreserVision AREDS [id number] Capsule 1 cap PO BID metoprolol succinate 100 mg tablet extended release 24 hr 100 mg PO BEDTIME isosorbide mononitrate 60 mg tablet extended release 24 hr 60 mg PO DAILY losartan 25 mg tablet 25 mg PO DAILY Discharge Orders: Discharge Order (Routine); Ordered 01/31/23 Ordered By: Lorne Wong Diet: Advance to usual diet Activity on Discharge: As tolerated Stand Alone Forms: Patient Portal Discharge page Care Plan Goals: continue blood sugar control follow-up with your primary care physician Health Concerns: diabetes hypertension Plan of Treatment: restart diet be mindful of symptoms of recurrence Assessment: doing very well Discharge Date/Time: 01/31/23 16:45
== END 2023-01-31 16:45 | disposition home or self-care (01) | DRG 247 ==
LOC: HO.ED 14:46 → HO.EDOVER 17:00 → HO.S3 19:56
PROVIDERS: Physician Assistant; Admitting Provider Surgery; Emergency Provider Emergency Medicine Emergency Medical Services; PCP Internal Medicine; Visit Provider Surgery
DX: K56.50 Intestinal adhesions [bands], unspecified as to partial versus complete obstruction (principal); I10 Essential (primary) hypertension; I25.10 Atherosclerotic heart disease of native coronary artery without angina pectoris; E11.9 Type 2 diabetes mellitus without complications; Z95.1 Presence of aortocoronary bypass graft; Z85.048 Personal history of other malignant neoplasm of rectum, rectosigmoid junction, and anus; Z93.3 Colostomy status; Z79.02 Long term (current) use of antithrombotics/antiplatelets; Z79.84 Long term (current) use of oral hypoglycemic drugs; Z79.899 Other long term (current) drug therapy
CPT/HCPCS: 36415; 71045; 71260; 74018; 74177; 80048; 80076; 81001; 82947; 83690; 83735; 84484; 85007; 85025; 85027; 93005; 99285; J1644; J2270; J2405; Q9967

== ENCOUNTER → 2023-01-29 09:59 | Outpatient (BNV) | payer BC, MEDICARE, SELFPAY | PROVIDERS: Emergency Provider Emergency Medicine Emergency Medical Services; PCP Internal Medicine; Visit Provider Internal Medicine Cardiovascular Disease | DX: R00.1 Bradycardia, unspecified (principal) | CPT/HCPCS: 93010 ==

== ENCOUNTER → 2023-01-29 16:20 | Outpatient (BNV) | payer BC, MEDICARE, SELFPAY | PROVIDERS: Admitting Provider Surgery; Emergency Provider Emergency Medicine Emergency Medical Services; PCP Internal Medicine; Visit Provider Surgery | DX: K56.609 Unspecified intestinal obstruction, unspecified as to partial versus complete obstruction (principal) | CPT/HCPCS: 99222; 99232; 99238; 99499 ==

== ENCOUNTER → 2023-01-29 16:20 | Outpatient (BNV) | payer BC, MEDICARE, SELFPAY | PROVIDERS: Admitting Provider Surgery; Emergency Provider Emergency Medicine Emergency Medical Services; PCP Internal Medicine; Visit Provider Student in an Organized Health Care Education/Training Program | DX: K56.609 Unspecified intestinal obstruction, unspecified as to partial versus complete obstruction (principal); E11.9 Type 2 diabetes mellitus without complications | CPT/HCPCS: 99222; 99232 ==

== ENCOUNTER 2024-06-09 15:11 | Inpatient (IN) | payer BC, MEDICARE, SELFPAY ==
--- NOTE | ~2024-06-09 | CT_ITS ---
CLINICAL HISTORY: SBO - oral and IV contrast CT abdomen and pelvis with contrast Comparison: CT of the abdomen pelvis from 01/29/2023 Findings: Bibasilar atelectasis. Mild fat deposition of the liver. Cholelithiasis measures 4 mm in the distended of the pancreas. Adrenal glands are unchanged. Mild splenomegaly with the again noted. Mild volume loss of the pancreas. No hydronephrosis. No definite change in cystic lesions in the kidneys. Nephrolithiasis and/or large stone in the lower pole of the left kidney measures 1 point 7 cm (previously 1.7 cm remeasured on prior). Calcified and noncalcified plaque include aorta and its branches. Small mesenteric and periaortic lymph nodes are likely reactive. Left-sided colostomy redemonstrated. Small-bowel dilatation is likely recurrent with small-bowel loops measuring 4 cm diameter. Transition point noted in the lower abdomen/pelvis. Concerning for high-grade given fecalization of the contents particularly in the left lower quadrant. The imaged appendix is within normal limits (image 617 of series 4). Moderate to severe stool burden. No significant change in cystic structure of the lower pelvis nonspecific calcifications. Again 6 cystic change rectal pouch remnant or considered. Chordoma not excluded given persistent abutment of the remaining coccygeal sacral junction. Stqnn-yn-cgdzhezi fat containing inguinal hernias, left larger than right. Prostate gland measures 4.6 cm transverse. Mild wall thickening of the urinary bladder is noted. Grade 1 anterolisthesis of the L4-L5 with disc height loss in mild-moderate spinal stenosis. Facet arthropathy is multifocal. Osteoarthritis includes the hips. Enthesopathy redemonstrated including left greater trochanter IMPRESSION: 1. Recurrent small-bowel obstruction. 2. Cholelithiasis. 3. Redemonstration of the left-sided large nephrolithiasis. This document has been electronically signed by: José Antonio Marte MD on 06/09/2024 22:45:14
--- NOTE | ~2024-06-09 | XR_ITS ---
CLINICAL HISTORY: NG tube placement 1 view chest x-ray Comparison: None Findings: Enteric tube now terminates below the diaphragm. Side port and tip are obscured with tip likely in the antrum of the stomach. Low lung volumes with bibasilar atelectasis/pneumonitis. Mild interstitial opacities noted. Mediastinum is unchanged with post sternotomy wires. Imaged bowel gas is unremarkable. IMPRESSION: Enteric tube terminates in the distal stomach. This document has been electronically signed by: José Antonio Marte MD on 06/10/2024 02:33:54
[2024-06-09 15:19] VITALS: BP 167/75; PULSE 54; RESP 16; TEMP 36.9; O2SAT 97; BMI 25.2
--- NOTE | 2024-06-09 15:19 | ED_ITS ---
HPI - Abdominal Pain General Chief Complaint: Abdominal Pain Stated Complaint: obstructed bowel Time Seen by Provider: 06/09/24 16:56 Source: patient Mode of arrival: ambulatory Limitations: no limitations History of Present Illness ED Provider: Dr. Angelina Hampton HPI narrative: Patient comes to emergency room complaining of abdominal pain, nausea vomiting. Patient states that his symptoms started yesterday. Patient states that he has had multiple small-bowel obstructions in the past secondary to adhesions, last 1 in 2022, has a colostomy bag, patient states that he believes he is having another small bowel obstruction. Patient denies fever chills, denies flank pain, denies hematuria or dysuria. Related Data Home Medications ?Medication ?Instructions ?Recorded ?Confirmed atorvastatin 40 mg tablet 1 tab PO DAILY 04/30/21 01/29/23 clopidogrel 75 mg tablet 1 tab PO DAILY 04/30/21 01/29/23 latanoprost 0.005 % eye drops 1 drp ophthalmic (eye) BEDTIME 04/30/21 01/29/23 metformin 1,000 mg tablet 1 tab PO BID 04/30/21 01/29/23 multivitamin 1 tab PO DAILY 04/30/21 01/29/23 sitagliptin phosphate 100 mg 1 tab PO BEDTIME 04/30/21 01/29/23 tablet (Januvia) vitamins A,C,J-hddx-atgscx 4,296 1 cap PO BID 04/30/21 01/29/23 mcg-226 mg-90 mg capsule (PreserVision AREDS) isosorbide mononitrate 60 mg 60 mg PO DAILY 01/29/23 01/29/23 tablet,extended release 24 hr losartan 25 mg tablet 25 mg PO DAILY 01/29/23 01/29/23 metoprolol succinate 100 mg 100 mg PO BEDTIME 01/29/23 01/29/23 tablet,extended release 24 hr Allergies Allergy/AdvReac Type Severity Reaction Status Date / Time No Known Allergies Allergy Verified 06/09/24 15:21 Review of Systems Review of Systems Constitutional : No Weight loss, No Fever, No Chills, No Night Sweats, No Fatigue, No Malaise ENT/Mouth : No Hearing loss, No Ear Pain, No Nasal Congestion, No Sinus Pain, No Hoarseness, No sore throat, No Rhinorrhea, No Swallowing Difficulty Eyes: No Eye Pain, No Swelling, No Redness, No Foreign Body, No Discharge, No Vision Changes Cardiovascular : No Chest Pain, No SOB, No Dyspnea on Exertion, No Orthopnea, No Edema, No Palpitations Respiratory : No Cough, No Sputum, No Wheezing, No Smoke Exposure, No Dyspnea Gastrointestinal : Complaining of nausea, vomiting, no colostomy output, diffuse abdominal pain Genitourinary : no irregular bleeding, No Dysuria, No Urinary Frequency, No Hematuria, No Urinary Incontinence, No Urgency, No Flank Pain, No Urinary Flow Changes, No Hesitancy Musculoskeletal : No joint pain, No Myalgias, No Joint Swelling Skin : No Skin Lesions, No rash Neuro : No Weakness, No Numbness, No Paresthesias, No Loss of Consciousness, No Dizziness, No Headache Psych : No Anxiety/Panic, No Depression, No SI/HI/AH/VH, No Social Issues, Heme/Lymph: No Bruising, No Bleeding,No Lymphadenopathy Endocrine : No Polyuria, No Polydipsia, No Temperature Intolerance [facility] Past Medical History Medical History History of rectal cancer Coronary artery disease HTN (hypertension) Diabetes Colorectal cancer Surgical History History of coronary artery bypass graft History of rectal surgery Social History Social History Household Members: Children Household Members Other:: Son intermittently live with patient Housing: House Do you presently have visiting nurse or other home services: No Alcohol intake: current Alcohol intake frequency: holidays/special occasions only Patient Tobacco Use Status: Never used Tobacco Smoked in Last 30 Days: No Use of substances other than those prescribed or required for medical reasons: No Advance Directives: No Advance Directives Information Provided: No Do you have a plan to hurt others: No Plan service: No Current occupational status: employed Physical Exam ED Vital Signs: Vital Signs - 24 hr 06/09/24 15:19 06/09/24 17:07 06/09/24 18:02 Temperature 98.4 F 97.7 F Pulse Rate 54 52 Respiratory Rate 16 12 12 Blood Pressure 167/75 H 183/78 H Pulse Oximetry 97 99 Oxygen Delivery Method Room Air Room Air 06/09/24 19:32 Temperature 98.5 F Pulse Rate 59 Respiratory Rate 16 Blood Pressure 169/46 H Pulse Oximetry 95 Oxygen Delivery Method Room Air BMI result Body Mass Index 25.2 Const Other: Appearance: Alert. Oriented X3. Looks uncomfortable Eyes: Pupils equal, round and reactive to light. ENT: Pharynx normal. Neck: Normal inspection. Neck supple. No lymph nodes noted. No crepitus CVS: Normal heart rate and rhythm. Pulses normal. Normal S1 and S2 Respiratory: No respiratory distress. Breath sounds normal. No Wheezing. No rales Abdomen: Soft, nondistended, mildly tender in all quadrants, no rebound or guarding Skin: Skin warm and dry. Normal skin color. Normal skin turgor. Extremities: No lower extremity edema. No Lacerations. No Rash Neuro: Oriented X 3. No motor deficit. No sensory deficit. Moving all extremities. No slurred speech. CN 2 through 12 grossly intact Psych: calm, cooperative, normal affect Course Course Course Narrative: This is an RME performed by Corry Arteaga, TUBE CLOSING MACHINE OPERATOR: Additional HPI, ROS, PE not included below will be deferred to primary provider. Patient is a 68-year-old male who presents emergency department for evaluation, complaining of diffuse abdominal pain, nausea, vomiting. Reports history of bowel obstruction this feels similar to this, last output from colostomy was yesterday morning. Plan: Serum labs, we will defer radiographic imaging modalities to primary provider Medical Decision Making Medical Decision Making [facility] Narrative: No significant abnormality in patient's labs, creatinine a bit bumped, patient received IV fluids. Patient's pain was relieved with morphine. Still uncomfortable but manageable per patient. CT scan of the abdomen showing a recurrent small-bowel obstruction, likely high- grade given difficulty station of the contents particularly in the left lower quadrant I discussed the patient with Dr. Leger from surgery, patient being admitted Differential Diagnosis Differential Diagnoses: The differential diagnosis associated with the presentation includes (Small bowel obstruction, constipation, perforation) Consult Healthcare Provider Management of the patient was discussed with: Respite Provider Lab Data [facility] Lab Attestation statement: I reviewed the patient's lab results. 06/09/24 15:39 06/09/24 15:39 Labs: Lab Results 06/09/24 Range/Units 15:39 WBC 11.7 H (4.8-10.8) X10*3/uL RBC 4.36 L (4.60-5.80) X10*6/uL Hgb 12.2 L (14.0-18.0) g/dl Hct 38.4 L (42.0-52.0) % MCV 88.1 (80.0-98.0) fL MCH 28.0 (27.0-33.0) pg MCHC 31.8 (31.0-36.0) g/dl RDW 14.6 (11.0-16.0) % Plt Count 163 (160-400) X10*3/uL MPV 9.9 (9.4-12.4) fL Immature Gran % (Auto) 0.4 (0.0-0.4) % Neut % (Auto) 89.1 H (45-73) % Lymph % (Auto) 5.7 L (20-40) % [place] % (Auto) 4.2 (2-11) % Eos % (Auto) 0.3 (0-4) % Baso % (Auto) 0.3 (0-2) % Lymph # (Auto) 0.7 L (1.2-4.9) X10*3/uL [place] # (Auto) 0.5 (0.1-1.2) X10*3/uL Eos # (Auto) 0.0 (0.0-0.4) X10*3/uL Baso # (Auto) 0.0 (0.0-0.2) X10*3/uL Abs Immat Gran (auto) 0.05 H (0.00-0.03) X10*3/uL Absolute Neuts (auto) 10.4 H (2.0-8.3) x10*3/uL Absolute Nucleated RBC 0.000 (0.0-0.012) X10*3/uL Nucleated RBC % (auto) 0.0 (0.0-0.2) /100WBC Sodium 140 (135-145) mmol/L Potassium 5.4 H (3.3-5.1) mmol/L Chloride 103 (96-108) mmol/L Carbon Dioxide 27 (22-29) mmol/L Anion Gap 15 (12-20) BUN 38 H (9-16) mg/dL Creatinine 1.68 H (0.5-1.4) mg/dL Estim Creat Clear Calc 38.7 Estimated GFR 41 Random Glucose 188 H (60-115) mg/dL Lactic Acid 1.7 (0.5-2.0) mmol/L Calcium 10.0 D (8.4-10.2) mg/dL Total Bilirubin 0.7 (0.0-1.0) mg/dL AST 29 (5-37) U/L ALT 25 (0-40) U/L Alkaline Phosphatase 71 (39-117) U/L Total Protein 7.6 (6.5-8.0) g/dL Albumin 4.7 (3.5-5.0) g/dL Lipase 29 (8-78) U/L Independent Interpretation I performed an independent interpretation of an: CT Scan Radiology Impression Discussion of test interpretation with radiology: I have reviewed the radiologist's reading. Radiologist Impression: Bibasilar atelectasis. Mild fat deposition of the liver. Cholelithiasis measures 4 mm in the distended of the pancreas. Adrenal glands are unchanged. Mild splenomegaly with the again noted. Mild volume loss of the pancreas. No hydronephrosis. No definite change in cystic lesions in the kidneys. Nephrolithiasis and/or large stone in the lower pole of the left kidney measures 1 point 7 cm (previously 1.7 cm remeasured on prior). Calcified and noncalcified plaque include aorta and its branches. Small mesenteric and periaortic lymph nodes are likely reactive. Left-sided colostomy redemonstrated. Small-bowel dilatation is likely recurrent with small-bowel loops measuring 4 cm diameter. Transition point noted in the lower abdomen/pelvis. Concerning for high-grade given fecalization of the contents particularly in the left lower quadrant. The imaged appendix is within normal limits (image 617 of series 4). Moderate to severe stool burden. No significant change in cystic structure of the lower pelvis nonspecific calcifications. Again 6 cystic change rectal pouch remnant or considered. Chordoma not excluded given persistent abutment of the remaining coccygeal sacral junction. [id number] fat containing inguinal hernias, left larger than right. Prostate gland measures 4.6 cm transverse. Mild wall thickening of the urinary bladder is noted. Grade 1 anterolisthesis of the L4-L5 with disc height loss in mild-moderate spinal stenosis. Facet arthropathy is multifocal. Osteoarthritis includes the hips. Enthesopathy redemonstrated including left greater trochanter IMPRESSION: 1. Recurrent small-bowel obstruction. 2. Cholelithiasis. 3. Redemonstration of the left-sided large nephrolithiasis. Medications Administered Discontinued Medications Generic Name Dose Route Start Last Admin Trade Name Leonardo PRN Reason Stop Dose Admin Diatrizoate Meglum/Diatrizoate Sod 30 ml 06/09/24 20:58 06/09/24 20:59 Diatrizoate Meglumine, Sodium 30 Ml Solution PO 06/09/24 20:59 30 ml ONCE ONE Administration Sodium Chloride 1,000 mls @ 999 mls/hr 06/09/24 17:40 06/09/24 17:57 Ns IVCONT 06/09/24 18:40 999 mls/hr .Q1H1M ONE Administration Iohexol 85 ml 06/09/24 20:57 06/09/24 20:58 Iohexol 350 Mg/Ml 100 Ml Infus..Btl IV 06/09/24 20:58 85 ml ONCE ONE Administration Morphine Sulfate 4 mg 06/09/24 17:40 06/09/24 18:02 Morphine Sulfate 4 Mg/Ml Cartridge IVPUSH 06/09/24 17:41 4 mg ONCE ONE Administration Protocol Morphine Sulfate 4 mg 06/09/24 22:35 06/09/24 22:38 Morphine Sulfate 4 Mg/Ml Cartridge IVPUSH 06/09/24 22:36 4 mg ONCE ONE Administration Protocol Ondansetron HCl 4 mg 06/09/24 17:40 06/09/24 18:03 Ondansetron Hcl 4 Mg/2 Ml Vial IVPUSH 06/09/24 17:41 4 mg ONCE ONE Administration Critical Care Time Critical Care Time Critical Care Time: Yes Total Critical Care Time: 60 Attestation: I have personally provided critical care time. Time includes review of lab data, radiology results, discussion with consultants, and monitoring for potential decompensation. Intervention performed as documented. Discharge Plan Discharge Clinical Impression: Small bowel obstruction, MUNA (acute kidney injury) Patient Disposition: Admitted As Inpatient Prescriptions: No Action atorvastatin 40 mg tablet 1 tab PO DAILY clopidogrel 75 mg tablet 1 tab PO DAILY metformin 1,000 mg tablet 1 tab PO BID Januvia 100 mg tablet 1 tab PO BEDTIME latanoprost 0.005 % drops 1 drp ophthalmic (eye) BEDTIME multivitamin Tablet 1 tab PO DAILY PreserVision AREDS [id number] [id number] Capsule 1 cap PO BID metoprolol succinate 100 mg tablet extended release 24 hr 100 mg PO BEDTIME isosorbide mononitrate 60 mg tablet extended release 24 hr 60 mg PO DAILY losartan 25 mg tablet 25 mg PO DAILY Print Language: Frisian
[2024-06-09 15:44] LABS: MANUAL DIFF FLAG NO
[2024-06-09 15:47] LABS: Basophils Percent Auto 0.3 % (0-2); Eosinophils Percent Auto 0.3 % (0-4); Hematocrit 38.4 % (42.0-52.0); Hemoglobin 12.2 g/dl (14.0-18.0); Imm Gran Abs Auto 0.05 X10*3/uL (0.00-0.03); Imm Gran Pct Auto 0.4 % (0.0-0.4); Lymphocytes Absolute Auto 0.7 X10*3/uL (1.2-4.9); Lymphocytes Percent Auto 5.7 % (20-40); Mean Corpuscular HGB Conc 31.8 g/dl (31.0-36.0); Mean Corpuscular Volume 88.1 fL (80.0-98.0); Mean Platelet Volume 9.9 fL (9.4-12.4); Monocytes Absolute Auto 0.5 X10*3/uL (0.1-1.2); Monocytes Percent Auto 4.2 % (2-11); Neutrophils Absolute Auto 10.4 x10*3/uL (2.0-8.3); Neutrophils Percent Auto 89.1 % (45-73); Platelet Count 163 X10*3/uL (160-400); Red Blood Count 4.36 X10*6/uL (4.60-5.80); Red Cell Distribution Width 14.6 % (11.0-16.0); White Blood Count 11.7 X10*3/uL (4.8-10.8)
[2024-06-09 16:00] LABS: Lactic Acid 1.7 mmol/L (0.5-2.0)
[2024-06-09 16:08] LABS: Alanine Aminotransferase 25 U/L (0-40); Albumin Level 4.7 g/dL (3.5-5.0); Alkaline Phosphatase 71 U/L (39-117); Anion Gap 15 (12-20); Aspartate Amino Transferase 29 U/L (5-37); Bilirubin Total 0.7 mg/dL (0.0-1.0); Blood Urea Nitrogen 38 mg/dL (9-16); Carbon Dioxide 27 mmol/L (22-29); Chloride 103 mmol/L (96-108); Creatinine Clr Calc Pharmacy 38.7; Estimated Glomerular Filt Rate 41; Glucose Random 188 mg/dL (60-115); Lipase 29 U/L (8-78); Potassium 5.4 mmol/L (3.3-5.1); Sodium 140 mmol/L (135-145); Total Protein 7.6 g/dL (6.5-8.0)
[2024-06-09 17:07] VITALS: BP 183/78; PULSE 52; RESP 12; TEMP 36.5; O2SAT 99
--- NOTE | 2024-06-09 17:45 | ECG_ITS ---
Test Reason : ABD PAIN Blood Pressure : */* mmHG Vent. Rate : 56 BPM Atrial Rate : 56 BPM P-R Int : 190 ms QRS Dur : 112 ms QT Int : 424 ms P-R-T Axes : 43 -25 51 degrees QTcB Int : 409 ms Sinus bradycardia Minimal voltage criteria for LVH, may be normal variant ( Rolf product ) Borderline ECG When compared with ECG of 29-Jan-2023 10:30, No significant change was found Referred By: Angelina Hampton Electronically Signed By: Francisco Ro
[2024-06-09] MEDS: 0.9 % Sodium Chloride 1,000 ML 999 ML IVCONT (17:57)
[2024-06-09 18:02] VITALS: RESP 12
[2024-06-09] MEDS: Morphine Sulfate 4 MG/ML CARTRIDGE IVPUSH ×2 (18:02→22:38)
[2024-06-09] MEDS: ondansetron HCL 4 MG/2 ML VIAL IVPUSH (18:03)
--- NOTE | 2024-06-09 18:08 | PC.NURSE ---
Patient presents to ED c/o abdominal pain N/V. VSS except patient hypertensive . Denies SOB. Patient stating I probably have a bowel obstruction , Patient has hx of bowel obstructions, last one approx 2023. Patient reports not having a bowel movement for aprrox 2 days. Non radiating pain in abdomen rated 7/10. Patient abdomen soft but appears distended, colostomy intact placed in 2008. No stool noted in bag. Auscultated all quadrants, +bowel sounds. 20G placed in right forearm. Administered morphine for pain, effectiveness pending. Administered zofran for nausea, effectiveness pending. Patient currently running 1L NaCl. Imaging in to see patient, patient provided with contrast, patient taking sips at this time. Call luciano placed in reach. Inez-bag provided, no vomiting noted at this time
[2024-06-09 19:32] VITALS: BP 169/46; PULSE 59; RESP 16; TEMP 36.9; O2SAT 95
[2024-06-09] MEDS: iohexoL 350 MG/ML 100 ML INFUS..BTL 85 ML IV (20:58)
[2024-06-09] MEDS: Diatrizoate Meglumine, Sodium 30 ML SOLUTION PO (20:59)
[2024-06-10] VITALS (7 sets, daily range): BP systolic 117–156; BP diastolic 57–76; PULSE 64–81; RESP 14–18; TEMP 36.5–37.2; O2SAT 93–98; BMI 25.3
[2024-06-10] MEDS: 0.9 % Sodium Chloride 1,000 ML 150 ML IVCONT ×4 (01:08→21:08)
[2024-06-10] MEDS: Acetaminophen 325 MG TABLET 650 MG PO ×2 (01:37→11:18)
[2024-06-10] MEDS: Morphine Sulfate 4 MG/ML CARTRIDGE IVPUSH ×2 (02:07→05:10)
--- NOTE | 2024-06-10 02:26 | PC.NURSE ---
NG tube placed 18F in R-Nare, securement device in place. Immediate greenish brown output. Pt tolerated well. CXR completed waiting for results. Pt c/o 08/17 pain, medicated with IV morphine.
[2024-06-10 04:37] LABS: Glucose, Whole Blood 154 mg/dL (60-115)
[2024-06-10 04:52] LABS: Appearance Urine Clear; Color Urine Yellow; Glucose Urine UA Negative (Negative); Leukocyte Esterase Urine Negative (Negative); Nitrite Urine Negative (Negative); Specific Gravity - Urine >= 1.030 (1.005-1.025); UMIC TRIGGER UACC YES; Urine Blood Negative (Negative); Urine Ketones Trace mg/dL (Negative); Urine Protein 100 (2+) mg/dL (Neg-Trace)
[2024-06-10] MEDS: ondansetron HCL 4 MG/2 ML VIAL IVPUSH (04:58)
[2024-06-10 04:59] LABS: Bacteria Urine None Seen (None Seen); Hyaline Casts Urine 0-2 /LPF (0-2); RBC Urine 0-2 /HPF (0-2); Squamous Epithelial Cell Urine 0-2 /HPF (0-2); WBC Urine 0-5 /HPF (0-5)
[2024-06-10 06:04] LABS: MANUAL DIFF FLAG NO
[2024-06-10 06:13] LABS: Basophils Percent Auto 0.6 % (0-2); Eosinophils Absolute Auto 0.1 X10*3/uL (0.0-0.4); Eosinophils Percent Auto 1.9 % (0-4); Hematocrit 39.5 % (42.0-52.0); Hemoglobin 12.7 g/dl (14.0-18.0); Imm Gran Abs Auto 0.01 X10*3/uL (0.00-0.03); Imm Gran Pct Auto 0.3 % (0.0-0.4); Lymphocytes Absolute Auto 0.2 X10*3/uL (1.2-4.9); Lymphocytes Percent Auto 6.2 % (20-40); Mean Corpuscular HGB Conc 32.2 g/dl (31.0-36.0); Mean Platelet Volume 10.7 fL (9.4-12.4); Monocytes Absolute Auto 0.2 X10*3/uL (0.1-1.2); Monocytes Percent Auto 7.4 % (2-11); Neutrophils Absolute Auto 2.7 x10*3/uL (2.0-8.3); Neutrophils Percent Auto 83.6 % (45-73); Platelet Count 153 X10*3/uL (160-400); Red Blood Count 4.54 X10*6/uL (4.60-5.80); Red Cell Distribution Width 14.6 % (11.0-16.0); White Blood Count 3.2 X10*3/uL (4.8-10.8)
[2024-06-10] MEDS: Pantoprazole Sodium 40 MG/10 ML VIAL IVPUSH (06:24)
[2024-06-10 06:37] LABS: Anion Gap 14 (12-20); Blood Urea Nitrogen 34 mg/dL (9-16); Calcium 9.2 mg/dL (8.4-10.2); Carbon Dioxide 24 mmol/L (22-29); Chloride 106 mmol/L (96-108); Creatinine Clr Calc Pharmacy 45.5; Estimated Glomerular Filt Rate 49; Glucose Random 171 mg/dL (60-115); Potassium 4.7 mmol/L (3.3-5.1); Sodium 139 mmol/L (135-145)
--- NOTE | 2024-06-10 08:59 | HO.PM.IMCN ---
History of Present Illness Data of Consult Service Date: 06/10/24 Primary Care Provider: Julio Cesar Swan MD [facility] Reason for consult: Medical management The pt is a 68-year-old male with a PMH significant for rectal CA s/p APR in 2008 with multiple prior surgeries, colostomy in place, hx of prior SBO (last in 01/2023), HTN, non-insulin dependent diabetes, and CAD s/p CABG on Plavix who was admitted to the hospital under General surgery for SBO. Hospitalist consult routine medical management. Pt seen and evaluated in his room where he is resting comfortably in bed. NGT in place with copious amounts of bilious output. Pt reports overall feels comfortable with 1/10 abdominal pain. Nausea also well-controlled with no episodes of vomiting since presenting to the ED. denies any output in colostomy. Pt denies any other acute medical complaints. No SOB or difficulty breathing. Denies chest pain/pressure, palpitations. No fever or chills. Denies lightheadedness or dizziness. Review of Systems Review of Systems: Negative except for that which is stated in the [facility] Medical History History of rectal cancer Coronary artery disease HTN (hypertension) Diabetes Colorectal cancer Surgical History History of coronary artery bypass graft History of rectal surgery Social History Household Members: None Household Members Other:: Son intermittently live with patient Housing: House Do you presently have visiting nurse or other home services: No Alcohol intake: current Alcohol intake frequency: holidays/special occasions only Patient Tobacco Use Status: Never used Tobacco service: No Current occupational status: employed Meds Allergies Allergy/AdvReac Type Severity Reaction Status Date / Time No Known Allergies Allergy Verified 06/09/24 15:21 Active Medications: Current Medications Acetaminophen (Acetaminophen 325 Mg Tablet) 650 mg PO Q6H PRN PRN Reason: Pain, Mild 1-3,fever,headache Last Admin: 06/10/24 01:37 Dose: 650 mg Sodium Chloride (Ns) 1,000 mls @ 150 mls/hr IVCONT .Q6H40M [facility] Last Admin: 06/10/24 07:27 Dose: 150 mls/hr Morphine Sulfate (Morphine Sulfate 4 Mg/Ml Cartridge) 4 mg IVPUSH Q4H PRN; Protocol PRN Reason: Pain, Severe (Pain Scale 7-10) Last Admin: 06/10/24 05:10 Dose: 4 mg Ondansetron HCl (Ondansetron Hcl 4 Mg/2 Ml Vial) 4 mg IVPUSH Q8H PRN PRN Reason: Nausea and Vomiting Last Admin: 06/10/24 04:58 Dose: 4 mg Pantoprazole Sodium (Pantoprazole Sodium 40 Mg/10 Ml Vial) 40 mg IVPUSH DAILY@0630 [facility] Last Admin: 06/10/24 06:24 Dose: 40 mg Sodium Chloride (0.9 % Sodium Chloride Flush 3 Ml Syringe) 3 ml IVFLUSH [facility] Last Admin: 06/10/24 07:13 Dose: Not Given Home Medications ?Medication ?Instructions ?Recorded ?Confirmed ?Last Taken ?Type atorvastatin 40 mg tablet 1 tab PO DAILY 04/30/21 01/29/23 01/28/23 History clopidogrel 75 mg tablet 1 tab PO DAILY 04/30/21 01/29/23 01/28/23 History latanoprost 0.005 % eye drops 1 drp ophthalmic (eye) BEDTIME 04/30/21 01/29/23 01/28/23 History metformin 1,000 mg tablet 1 tab PO BIDWM 04/30/21 01/29/23 01/28/23 History multivitamin 1 tab PO DAILY 04/30/21 01/29/23 01/28/23 History sitagliptin phosphate 100 mg 1 tab PO BEDTIME 04/30/21 01/29/23 01/28/23 History tablet (Januvia) vitamins A,C,F-rwlb-boabki 4,296 1 cap PO BID 04/30/21 01/29/23 01/28/23 History mcg-226 mg-90 mg capsule (PreserVision AREDS) isosorbide mononitrate 60 mg 60 mg PO BID 01/29/23 01/29/23 01/28/23 History tablet,extended release 24 hr losartan 25 mg tablet 25 mg PO DAILY 01/29/23 01/29/23 01/28/23 History metoprolol succinate 100 mg 100 mg PO BEDTIME 01/29/23 01/29/23 01/28/23 History tablet,extended release 24 hr Physical Exam Vital Signs and Narrative: Vital Signs: Last Vital Signs Temp 98.2 F 06/10/24 07:08 Pulse 75 06/10/24 07:08 Resp 14 06/10/24 07:08 BP 156/75 H 06/10/24 07:08 Pulse Ox 95 06/10/24 07:08 O2 Del Method Room Air 06/10/24 07:08 BMI result Body Mass Index 25.3 General: AOx3, no acute distress; NGT in place with copious amounts of bilious output Resp: CTA bilaterally CVS: S1, S2, RRR GI: NT, no distention. Colostomy in place without any output. RUQ BS hypoactive, BS absent in other quadrants Skin: Warm, dry Neuro: Cranial nerves II-XII grossly intact bilaterally. Motor grossly intact bilaterally Extremities: No edema Psych: Appropriate affect Results Labs 06/10/24 05:54 06/10/24 05:54 Labs: Laboratory Results - last 24 hr 06/09/24 06/10/24 06/10/24 15:39 04:33 05:54 MCV 88.1 87.0 MCH 28.0 28.0 MCHC 31.8 32.2 RDW 14.6 14.6 Plt Count 163 153 L MPV 9.9 10.7 Immature Gran % (Auto) 0.4 0.3 Neut % (Auto) 89.1 H 83.6 H Lymph % (Auto) 5.7 L 6.2 L [place] % (Auto) 4.2 7.4 Eos % (Auto) 0.3 1.9 Baso % (Auto) 0.3 0.6 Lymph # (Auto) 0.7 L 0.2 L [place] # (Auto) 0.5 0.2 Eos # (Auto) 0.0 0.1 Baso # (Auto) 0.0 0.0 Abs Immat Gran (auto) 0.05 H 0.01 Absolute Neuts (auto) 10.4 H 2.7 Absolute Nucleated RBC 0.000 0.000 Nucleated RBC % (auto) 0.0 0.0 Anion Gap 15 14 Estim Creat Clear Calc 38.7 45.5 Estimated GFR 41 49 POC Glucose 154 H Random Glucose 188 H 171 H Lactic Acid 1.7 Calcium 10.0 D 9.2 D Total Bilirubin 0.7 AST 29 ALT 25 Alkaline Phosphatase 71 Total Protein 7.6 Albumin 4.7 Lipase 29 Urine Color Urine Appearance Urine pH Ur Specific [place] Urine Protein Urine Glucose (UA) Urine Ketones Urine Blood Urine Nitrite Ur Leukocyte Esterase Urine RBC Urine WBC Ur Squamous Epith Cells Urine Bacteria Hyaline Casts 06/10/24 Unknown MCV MCH MCHC RDW Plt Count MPV Immature Gran % (Auto) Neut % (Auto) Lymph % (Auto) [place] % (Auto) Eos % (Auto) Baso % (Auto) Lymph # (Auto) [place] # (Auto) Eos # (Auto) Baso # (Auto) Abs Immat Gran (auto) Absolute Neuts (auto) Absolute Nucleated RBC Nucleated RBC % (auto) Anion Gap Estim Creat Clear Calc Estimated GFR POC Glucose Random Glucose Lactic Acid Calcium Total Bilirubin AST ALT Alkaline Phosphatase Total Protein Albumin Lipase Urine Color Yellow Urine Appearance Clear Urine pH 5.0 Ur Specific [place] >= 1.030 H Urine Protein 100 (2+) H Urine Glucose (UA) Negative Urine Ketones Trace Urine Blood Negative Urine Nitrite Negative Ur Leukocyte Esterase Negative Urine RBC 0-2 Urine WBC 0-5 Ur Squamous Epith Cells 0-2 Urine Bacteria None Seen Hyaline Casts 0-2 Assessment and Plan (1) Small bowel obstruction: Status: Acute Plan The pt is a 68-year-old male with a PMH significant for rectal CA s/p APR in 2008 with multiple prior surgeries, colostomy in place, hx of prior SBO (last in 01/2023), HTN, non-insulin dependent diabetes, and CAD s/p CABG on Plavix who was admitted to the hospital under General surgery for SBO. Hospitalist consult routine medical management. SBO Pt with hx of multiple SBOs, last in 01/2023 CT showing recurrent small-bowel obstruction NGT in place Plan as per General surgery Hyperkalemia, resolved Potassium mildly elevated 5.4 at time of presentation, currently WNL at 4.7 Likely secondary to GI losses in the setting of SBO Follow BMP Elevated creatinine Creatinine 1.68 at time of presentation, prior 1.29 on 01/30/2023 Likely secondary to GI losses and reduced p.o. intake in the setting of SBO Currently creatinine improved to 1.43 after IVF Continue maintenance fluids Monitor creatinine Qqp-bwzwzsu-hlzygweaw type 2 diabetes POC moderately well-controlled Will hold Januvia and metformin while NPO Place on sliding scale insulin Monitor POC q.6 CAD/HLD Hold Plavix due to possible surgery HTN Continue losartan, metoprolol Thank you for allowing us to participate in the care of this pt. Will continue to follow along with you.
--- NOTE | 2024-06-10 09:42 | MHC.CM.PN ---
DX SBO Medical RX NG LWS He lives by himself. He is independent with all functional mobility. No DME PCP Dr Julio Cesar Swan Requested a copy of HCP. DP home self care. Pts son will provide transportation home.
--- NOTE | 2024-06-10 10:05 | PHA.MEDREC ---
Addendum entered by Camila Levy RPh 06/10/24 10:29: REVIEWED BY [facility] Original Note: Pharmacy Consult ? Medication Reconciliation Pharmacy has completed the medication reconciliation. Spoke to pt to confirm meds.
[2024-06-10 11:13] LABS: Glucose, Whole Blood 153 mg/dL (60-115)
--- NOTE | 2024-06-10 15:56 | P.HPGS_ITS ---
History of Present Illness History of Present Illness Date of Service: 06/10/24 Chief complaint: Abdominal Pain Narrative: Paul Bella is a 68 year old male who has a long-term history of rectal cancer and undergoing a RI in [place] many years ago after having neoadjuvant chemo and radiation therapy. He has had several operations after that due to problems with healing of the APR but has not had any recurrences of this cancer which is great. He has had several partial small bowel obstructions the last of which was about a year ago which have resolved with conservative care NPO NG tube decompression IV fluid. Yesterday came in feeling not so good in the night in the morning but then things got worse where he felt like abdominal pain that was sharp and nauseous and wanting to throw up. He recognized this is his symptoms for his obstruction and came to the emergency room. He has his end colostomy in the left lower quadrant area and he said that it has stopped getting filled with stool and gas and this worried him. He was admitted to the surgical department NG-tube placed with bilious output IV fluid resuscitation and by this morning is feeling much better. By the afternoon he has stool coming into his bag. In the NG-tube output is decreased PMFSH Past Medical History Medical History History of rectal cancer Coronary artery disease HTN (hypertension) Diabetes Colorectal cancer Surgical History Surgical History History of coronary artery bypass graft History of rectal surgery Social History Social History Household Members: None Household Members Other:: Son intermittently live with patient Housing: House Do you presently have visiting nurse or other home services: No Alcohol intake: current Alcohol intake frequency: holidays/special occasions only Patient Tobacco Use Status: Never used Tobacco service: No Current occupational status: employed Meds Allergies Allergy/AdvReac Type Severity Reaction Status Date / Time No Known Allergies Allergy Verified 06/09/24 15:21 Active Medications: Current Medications Acetaminophen (Acetaminophen 325 Mg Tablet) 650 mg PO Q6H PRN PRN Reason: Pain, Mild 1-3,fever,headache Last Admin: 06/10/24 11:18 Dose: 650 mg Atorvastatin Calcium (Atorvastatin Calcium 40 Mg Tablet) 40 mg PO DAILY [facility] Dextrose (Dextrose 50 % 25 Gm/50 Ml Syringe) 25 gm IVPUSH Q15M PRN; Protocol PRN Reason: per Hypoglycemia Standing Ord. Glucose (Glucose Gel 15 Gm Gel..Gram.) 15 gm PO Q15M PRN; Protocol PRN Reason: per Hypoglycemia Standing Ord. Sodium Chloride (Ns) 1,000 mls @ 150 mls/hr IVCONT .Q6H40M [facility] Last Admin: 06/10/24 14:49 Dose: 150 mls/hr Insulin Human Lispro (Insulin Lispro 100 Unit/Ml 3 Ml Vial) 0 unit SUBCUT QIDACHS [facility]; Protocol Last Admin: 06/10/24 11:20 Dose: Not Given Isosorbide Mononitrate (Isosorbide Mononitrate 60 Mg Tab.Er.24h) 60 mg PO DAILY [facility]; Protocol Latanoprost (Latanoprost 0.005 % Ophth May 2.5 Ml Drops) 1 drop EYE-BOTH BEDTIME [facility] Losartan Potassium (Losartan Potassium 25 Mg Tablet) 25 mg PO BEDTIME [facility]; Protocol Metoprolol Succinate (Metoprolol Succinate Er 100 Mg Tab.Er.24h) 100 mg PO BEDTIME [facility]; Protocol Morphine Sulfate (Morphine Sulfate 4 Mg/Ml Cartridge) 4 mg IVPUSH Q4H PRN; Protocol PRN Reason: Pain, Severe (Pain Scale 7-10) Last Admin: 06/10/24 05:10 Dose: 4 mg Multivitamins/Vitamin C (Multivitamin Tablet) 1 tab PO BEDTIME [facility] Ondansetron HCl (Ondansetron Hcl 4 Mg/2 Ml Vial) 4 mg IVPUSH Q8H PRN PRN Reason: Nausea and Vomiting Last Admin: 06/10/24 04:58 Dose: 4 mg Pantoprazole Sodium (Pantoprazole Sodium 40 Mg/10 Ml Vial) 40 mg IVPUSH DAILY@0630 [facility] Last Admin: 06/10/24 06:24 Dose: 40 mg Sodium Chloride (0.9 % Sodium Chloride Flush 3 Ml Syringe) 3 ml IVFLUSH QSHIFT [facility] Last Admin: 06/10/24 15:54 Dose: Not Given Home Medications ?Medication ?Instructions ?Recorded ?Confirmed ?Last Taken ?Type atorvastatin 40 mg tablet 1 tab PO DAILY 04/30/21 06/10/24 06/09/24 09:00 History clopidogrel 75 mg tablet 1 tab PO DAILY 04/30/21 06/10/24 06/09/24 09:00 History latanoprost 0.005 % eye drops 1 drp ophthalmic (eye) BEDTIME 04/30/21 06/10/24 01/28/23 History metformin 1,000 mg tablet 1 tab PO BIDWM 04/30/21 06/10/24 06/09/24 09:00 History multivitamin 1 tab PO BEDTIME 04/30/21 06/10/24 01/28/23 History sitagliptin phosphate 100 mg 1 tab PO BEDTIME 04/30/21 06/10/24 01/28/23 History tablet (Januvia) vitamins A,C,M-mdag-kzniws 4,296 1 cap PO BID 04/30/21 06/10/24 06/09/24 09:00 History mcg-226 mg-90 mg capsule (PreserVision AREDS) isosorbide mononitrate 60 mg 60 mg PO DAILY 01/29/23 06/10/24 06/09/24 09:00 History tablet,extended release 24 hr losartan 25 mg tablet 25 mg PO BEDTIME 01/29/23 06/10/24 01/28/23 History metoprolol succinate 100 mg 100 mg PO BEDTIME 01/29/23 06/10/24 01/28/23 History tablet,extended release 24 hr Physical Exam Vital Signs: Vital Signs: Last Vital Signs Temp 98.1 F 06/10/24 15:21 Pulse 77 06/10/24 15:21 Resp 14 06/10/24 15:21 BP 124/58 L 06/10/24 15:21 Pulse Ox 96 06/10/24 15:21 O2 Del Method Room Air 06/10/24 15:21 BMI result Body Mass Index 25.3 Const: General: cooperative, no acute distress and tired appearing Resp: Effort & Inspection: normal respiratory effort Auscultation: clear to auscultation bilaterally Cardio: Rate: regular rate Rhythm: regular rhythm GI: Other: Abdomen is soft nondistended active bowel sounds nontender ostomy bag has some liquid material present Results Results Labs: Short CBC 06/10/24 Range/Units 05:54 WBC 3.2 L (4.8-10.8) X10*3/uL Hgb 12.7 L (14.0-18.0) g/dl Hct 39.5 L (42.0-52.0) % Plt Count 153 L (160-400) X10*3/uL BMP 06/09/24 06/10/24 15:39 05:54 Sodium 140 139 Potassium 5.4 H 4.7 Chloride 103 106 Carbon Dioxide 27 24 BUN 38 H 34 H Creatinine 1.68 H 1.43 H Calcium 10.0 D 9.2 D Liver Function 06/09/24 Range/Units 15:39 Total Bilirubin 0.7 (0.0-1.0) mg/dL AST 29 (5-37) U/L ALT 25 (0-40) U/L Alkaline Phosphatase 71 (39-117) U/L Albumin 4.7 (3.5-5.0) g/dL Urine 06/10/24 Range/Units Unknown Urine Color Yellow Urine Appearance Clear Urine pH 5.0 (5.0-9.0) Ur Specific [place] >= 1.030 H (1.005-1.025) Urine Protein 100 (2+) H (Neg-Trace) mg/dL Urine Glucose (UA) Negative (Negative) mg/dL Additional studies: Signed with Addenda Patient: Paul Bella MR#: [id number] : 1955 Acct:[id number] Age/Sex: 68 / M ADM Date: 06/09/24 Loc: HO.ED Attending Dr: Ordering Physician: Angelina Hampton MD Date of Service: 06/09/24 Procedure(s): CT abdomen pelvis w IV con Accession Number(s): [id number] cc: CAMMIE DAVILA MD; Angelina Hampton MD~ Report Number: [id number]: Total DLP = 516.00 mGy-cm ADDENDUMThis document has been electronically signed by: José Antonio Marte MD on 06/09/2024 22:45:14 ADDENDUM: This report was discussed with Memo Alfaro on June 09, 2024 22:47:00 EDT. This document has been electronically signed by: Amairani Bradley on 06/09/2024 22:47:50 Addendum Dictated By: José Antonio Marte MD Addendum Signed By: <Electronically signed by José Antonio Marte MD in [place]> 06/09/242247 Addendum Cosigned By: DD/ /04/2244 TD/TT: 06/09/2404/04/2246 CLINICAL HISTORY: SBO - oral and IV contrast CT abdomen and pelvis with contrast Comparison: CT of the abdomen pelvis from 01/29/2023 Findings: Bibasilar atelectasis. Mild fat deposition of the liver. Cholelithiasis measures 4 mm in the distended of the pancreas. Adrenal glands are unchanged. Mild splenomegaly with the again noted. Mild volume loss of the pancreas. No hydronephrosis. No definite change in cystic lesions in the kidneys. Nephrolithiasis and/or large stone in the lower pole of the left kidney measures 1 point 7 cm (previously 1.7 cm remeasured on prior). Calcified and noncalcified plaque include aorta and its branches. Small mesenteric and periaortic lymph nodes are likely reactive. Left-sided colostomy redemonstrated. Small-bowel dilatation is likely recurrent with small-bowel loops measuring 4 cm diameter. Transition point noted in the lower abdomen/pelvis. Concerning for high-grade given fecalization of the contents particularly in the left lower quadrant. The imaged appendix is within normal limits (image 617 of series 4). Moderate to severe stool burden. No significant change in cystic structure of the lower pelvis nonspecific calcifications. Again 6 cystic change rectal pouch remnant or considered. Chordoma not excluded given persistent abutment of the remaining coccygeal sacral junction. Qfulj-ol-qjqbcdbw fat containing inguinal hernias, left larger than right. Prostate gland measures 4.6 cm transverse. Mild wall thickening of the urinary bladder is noted. Grade 1 anterolisthesis of the L4-L5 with disc height loss in mild-moderate spinal stenosis. Facet arthropathy is multifocal. Osteoarthritis includes the hips. Enthesopathy redemonstrated including left greater trochanter IMPRESSION: 1. Recurrent small-bowel obstruction. 2. Cholelithiasis. 3. Redemonstration of the left-sided large nephrolithiasis. 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 Overall he is doing better. We will plan to continue with NPO NG tube decompression IV fluid hydration little sips of liquids and ice chips and serial abdominal exams. Hopefully he should improve and then we can remove the NG tube and advance his diet. He understands and agrees with the above plan. Patient is known to Dr. Wong Quality Stroke Does the patient have a stroke diagnosis?: No VTE Prior VTE?: No VTE Risk Level:: Surgical - low VTE Device Contraindication: N/A - Device Ordered VTE Drug Contraindication: N/A - Med Ordered Procedures Date of Service Date of Service: 06/10/24
[2024-06-10 16:07] LABS: Glucose, Whole Blood 156 mg/dL (60-115)
[2024-06-10 20:06] LABS: Glucose, Whole Blood 142 mg/dL (60-115)
[2024-06-10] MEDS: Latanoprost 0.005 % Ophth Sol 2.5 ML DROPS 1 DROP EYE-BOTH (20:29)
[2024-06-10] MEDS: Enoxaparin Sodium 40 MG/0.4 ML SYRINGE SUBCUT (20:29)
[2024-06-10] MEDS: Metoprolol Succinate ER 100 MG TAB.ER.24H PO (20:29)
[2024-06-10] MEDS: Losartan Potassium 25 MG TABLET PO (20:30)
[2024-06-10] MEDS: Multivitamin TABLET 1 TAB PO (20:30)
[2024-06-11 03:03] VITALS: BP 128/61; PULSE 71; RESP 18; TEMP 37.3; O2SAT 95
[2024-06-11] MEDS: 0.9 % Sodium Chloride 1,000 ML 150 ML IVCONT ×4 (03:38→23:15)
[2024-06-11] MEDS: Pantoprazole Sodium 40 MG/10 ML VIAL IVPUSH (06:19)
[2024-06-11 07:39] LABS: Glucose, Whole Blood 121 mg/dL (60-115)
[2024-06-11 07:52] VITALS: BP 121/57; PULSE 65; RESP 16; TEMP 36.9; O2SAT 92
[2024-06-11] MEDS: Isosorbide Mononitrate 60 MG TAB.ER.24H PO (09:00)
[2024-06-11] MEDS: Atorvastatin Calcium 40 MG TABLET PO (09:01)
[2024-06-11 11:21] LABS: Glucose, Whole Blood 103 mg/dL (60-115)
[2024-06-11 11:33] LABS: Anion Gap 13 (12-20); Blood Urea Nitrogen 30 mg/dL (9-16); Calcium 7.8 mg/dL (8.4-10.2); Carbon Dioxide 25 mmol/L (22-29); Chloride 107 mmol/L (96-108); Creatinine Clr Calc Pharmacy 53.8; Estimated Glomerular Filt Rate 59; Glucose Random 116 mg/dL (60-115); Potassium 3.9 mmol/L (3.3-5.1); Sodium 141 mmol/L (135-145)
[2024-06-11 11:49] VITALS: BP 120/61; PULSE 68; RESP 18; TEMP 37.3; O2SAT 94
--- NOTE | 2024-06-11 15:16 | P.PNGS_ITS ---
Subjective Subjective Date of Service: 06/11/24 Interval history: feeling better than yesterday, less pain, some more output from ostomy- ng not draining as much - more clear fluids as pt is drinking Physical Exam 2 Vital Signs: Vital Signs: Last Vital Signs Temp 99.2 F 06/11/24 11:49 Pulse 68 06/11/24 11:49 Resp 18 06/11/24 11:49 BP 120/61 06/11/24 11:49 Pulse Ox 94 06/11/24 11:49 O2 Del Method Room Air 06/11/24 11:49 BMI result Body Mass Index 25.3 Const: General: cooperative and comfortable Resp: Effort & Inspection: normal respiratory effort Cardio: Rate: regular rate Rhythm: regular rhythm GI: Other: abdomen is soft nontender nondistended active bowel sounds some gas and liquid in ostomy bag Objective Data Active Medications Acetaminophen (Acetaminophen 325 Mg Tablet) 650 mg PO Q6H PRN PRN Reason: Pain, Mild 1-3,fever,headache Last Admin: 06/10/24 11:18 Dose: 650 mg Documented By: ERAN Atorvastatin Calcium (Atorvastatin Calcium 40 Mg Tablet) 40 mg PO DAILY [facility] Last Admin: 06/11/24 09:01 Dose: 40 mg Documented By: ERAN Dextrose (Dextrose 50 % 25 Gm/50 Ml Syringe) 25 gm IVPUSH Q15M PRN; Protocol PRN Reason: per Hypoglycemia Standing Ord. Enoxaparin Sodium (Enoxaparin Sodium 40 Mg/0.4 Ml Syringe) 40 mg SUBCUT Q24H [facility] Last Admin: 06/10/24 20:29 Dose: 40 mg Documented By: JENNIFER Glucose (Glucose Gel 15 Gm Gel..Gram.) 15 gm PO Q15M PRN; Protocol PRN Reason: per Hypoglycemia Standing Ord. Sodium Chloride (Ns) 1,000 mls @ 150 mls/hr IVCONT .Q6H40M [facility] Last Admin: 06/11/24 10:37 Dose: 150 mls/hr Documented By: ERAN Insulin Human Lispro (Insulin Lispro 100 Unit/Ml 3 Ml Vial) 0 unit SUBCUT QIDACHS [facility]; Protocol Last Admin: 06/11/24 11:39 Dose: Not Given Documented By: ERAN Non-Admin Reason: No Insulin Coverage Isosorbide Mononitrate (Isosorbide Mononitrate 60 Mg Tab.Er.24h) 60 mg PO DAILY [facility]; Protocol Last Admin: 06/11/24 09:00 Dose: 60 mg Documented By: ERAN Latanoprost (Latanoprost 0.005 % Ophth May 2.5 Ml Drops) 1 drop EYE-BOTH BEDTIME [facility] Last Admin: 06/10/24 20:29 Dose: 1 drop Documented By: JENNIFER Losartan Potassium (Losartan Potassium 25 Mg Tablet) 25 mg PO BEDTIME [facility]; Protocol Last Admin: 06/10/24 20:30 Dose: 25 mg Documented By: JENNIFER Metoprolol Succinate (Metoprolol Succinate Er 100 Mg Tab.Er.24h) 100 mg PO BEDTIME [facility]; Protocol Last Admin: 06/10/24 20:29 Dose: 100 mg Documented By: JENNIFER Morphine Sulfate (Morphine Sulfate 4 Mg/Ml Cartridge) 4 mg IVPUSH Q4H PRN; Protocol PRN Reason: Pain, Severe (Pain Scale 7-10) Last Admin: 06/10/24 05:10 Dose: 4 mg Documented By: JENNIFER Multivitamins/Vitamin C (Multivitamin Tablet) 1 tab PO BEDTIME [facility] Last Admin: 06/10/24 20:30 Dose: 1 tab Documented By: JENNIFER Ondansetron HCl (Ondansetron Hcl 4 Mg/2 Ml Vial) 4 mg IVPUSH Q8H PRN PRN Reason: Nausea and Vomiting Last Admin: 06/10/24 04:58 Dose: 4 mg Documented By: JENNIFER Pantoprazole Sodium (Pantoprazole Sodium 40 Mg/10 Ml Vial) 40 mg IVPUSH DAILY@0630 [facility] Last Admin: 06/11/24 06:19 Dose: 40 mg Documented By: JENNIFER Sodium Chloride (0.9 % Sodium Chloride Flush 3 Ml Syringe) 3 ml IVFLUSH QSHIFT [facility] Last Admin: 06/11/24 07:53 Dose: Not Given Documented By: ERAN Non-Admin Reason: IV Running Labs 06/10/24 05:54 06/11/24 10:37 Labs: Laboratory Results - last 24 hr 06/10/24 06/10/24 06/11/24 16:00 19:39 07:35 Anion Gap Estim Creat Clear Calc Estimated GFR POC Glucose 156 H 142 H 121 H Random Glucose Calcium 06/11/24 06/11/24 10:37 11:15 Anion Gap 13 Estim Creat Clear Calc 53.8 Estimated GFR 59 POC Glucose 103 Random Glucose 116 H Calcium 7.8 L D Procedures Date of Service Date of Service: 06/11/24 Progress Note: A&P Assessment and plan (1) Small bowel obstruction: Status: Acute Assessment and Plan: pt improving from psbo issue - will clamp ng increase to liquids as tolerated and then probable dc ng later d/w med team and plan to resume his po meds by tomorrow. Hopefully he ill be able to go home then if tolerates po diet. Time Spent With Patient Time: Total time managing care of this patient today ____ minutes. Quality Stroke Does the patient have a stroke diagnosis?: No VTE Prior VTE?: No VTE Risk Level:: Surgical - low VTE Device Contraindication: N/A - Device Ordered VTE Drug Contraindication: N/A - Med Ordered
[2024-06-11 15:31] VITALS: BP 125/63; PULSE 67; RESP 20; TEMP 36.6; O2SAT 98
[2024-06-11 16:41] LABS: Glucose, Whole Blood 106 mg/dL (60-115)
--- NOTE | 2024-06-11 17:56 | P.PNIM_ITS ---
Subjective Subjective Date of Service: 06/11/24 Interval History: Follow up for pt with SBO Reports feels better, denies N/V No abdominal pain Began passing stool and gas in colostomy bag last night; bag was full last night, less so today and mostly filled with gas Small amount of output from NGT Pt does complain of intermittent right-sided discomfort, currently pain-free, no known precipitating factors Denies fever, chills No SOB or difficulty breathing Review of Systems Negative except for that which is stated in the HPI Physical Exam 2 Vital Signs: Vital Signs: Last Vital Signs Temp 97.8 F 06/11/24 15:31 Pulse 67 06/11/24 15:31 Resp 20 06/11/24 15:31 BP 125/63 06/11/24 15:31 Pulse Ox 98 06/11/24 15:31 O2 Del Method Room Air 06/11/24 15:31 BMI result Body Mass Index 25.3 General: AOx3, no acute distress; NGT in place with scant amount of bilious output Resp: CTA bilaterally CVS: S1, S2, RRR GI: NT, no distention. Colostomy in place with some gas and soft stool. +BS in all quadrants Skin: Warm, dry Neuro: Cranial nerves II-XII grossly intact bilaterally. Motor grossly intact bilaterally Extremities: No edema Psych: Appropriate affect Objective Data Active Medications Acetaminophen (Acetaminophen 325 Mg Tablet) 650 mg PO Q6H PRN PRN Reason: Pain, Mild 1-3,fever,headache Last Admin: 06/10/24 11:18 Dose: 650 mg Documented By: ERAN Atorvastatin Calcium (Atorvastatin Calcium 40 Mg Tablet) 40 mg PO DAILY [facility] Last Admin: 06/11/24 09:01 Dose: 40 mg Documented By: ERAN Dextrose (Dextrose 50 % 25 Gm/50 Ml Syringe) 25 gm IVPUSH Q15M PRN; Protocol PRN Reason: per Hypoglycemia Standing Ord. Enoxaparin Sodium (Enoxaparin Sodium 40 Mg/0.4 Ml Syringe) 40 mg SUBCUT Q24H [facility] Last Admin: 06/10/24 20:29 Dose: 40 mg Documented By: JENNIFER Glucose (Glucose Gel 15 Gm Gel..Gram.) 15 gm PO Q15M PRN; Protocol PRN Reason: per Hypoglycemia Standing Ord. Sodium Chloride (Ns) 1,000 mls @ 150 mls/hr IVCONT .Q6H40M [facility] Last Admin: 06/11/24 16:34 Dose: 150 mls/hr Documented By: ERAN Insulin Human Lispro (Insulin Lispro 100 Unit/Ml 3 Ml Vial) 0 unit SUBCUT QIDACHS [facility]; Protocol Last Admin: 06/11/24 16:45 Dose: Not Given Documented By: ERAN Non-Admin Reason: No Insulin Coverage Isosorbide Mononitrate (Isosorbide Mononitrate 60 Mg Tab.Er.24h) 60 mg PO DAILY [facility]; Protocol Last Admin: 06/11/24 09:00 Dose: 60 mg Documented By: ERAN Latanoprost (Latanoprost 0.005 % Ophth May 2.5 Ml Drops) 1 drop EYE-BOTH BEDTIME [facility] Last Admin: 06/10/24 20:29 Dose: 1 drop Documented By: JENNIFER Losartan Potassium (Losartan Potassium 25 Mg Tablet) 25 mg PO BEDTIME [facility]; Protocol Last Admin: 06/10/24 20:30 Dose: 25 mg Documented By: JENNIFER Metoprolol Succinate (Metoprolol Succinate Er 100 Mg Tab.Er.24h) 100 mg PO BEDTIME [facility]; Protocol Last Admin: 06/10/24 20:29 Dose: 100 mg Documented By: JENNIFER Morphine Sulfate (Morphine Sulfate 4 Mg/Ml Cartridge) 4 mg IVPUSH Q4H PRN; Protocol PRN Reason: Pain, Severe (Pain Scale 7-10) Last Admin: 06/10/24 05:10 Dose: 4 mg Documented By: JENNIFER Multivitamins/Vitamin C (Multivitamin Tablet) 1 tab PO BEDTIME [facility] Last Admin: 06/10/24 20:30 Dose: 1 tab Documented By: JENNIFER Ondansetron HCl (Ondansetron Hcl 4 Mg/2 Ml Vial) 4 mg IVPUSH Q8H PRN PRN Reason: Nausea and Vomiting Last Admin: 06/10/24 04:58 Dose: 4 mg Documented By: JENNIFER Pantoprazole Sodium (Pantoprazole Sodium 40 Mg/10 Ml Vial) 40 mg IVPUSH DAILY@0630 [facility] Last Admin: 06/11/24 06:19 Dose: 40 mg Documented By: JENNIFER Sodium Chloride (0.9 % Sodium Chloride Flush 3 Ml Syringe) 3 ml IVFLUSH QSHIFT [facility] Last Admin: 06/11/24 15:49 Dose: Not Given Documented By: ERAN Non-Admin Reason: IV Running Labs 06/10/24 05:54 06/11/24 10:37 Labs: Laboratory Results - last 24 hr 06/10/24 06/11/24 06/11/24 19:39 07:35 10:37 Anion Gap 13 Estim Creat Clear Calc 53.8 Estimated GFR 59 POC Glucose 142 H 121 H Random Glucose 116 H Calcium 7.8 L D 06/11/24 06/11/24 11:15 16:38 Anion Gap Estim Creat Clear Calc Estimated GFR POC Glucose 103 106 Random Glucose Calcium Assessment and Plan (1) Small bowel obstruction: Status: Acute Plan Pt is a 68-year-old male with a PMH significant for rectal CA s/p APR in 2008 with multiple prior surgeries, colostomy in place, hx of prior SBO (last in 01/2023), HTN, non-insulin dependent diabetes, and CAD s/p CABG on Plavix who was admitted to the hospital under General surgery for SBO. Hospitalist consult for routine medical management. SBO Pt with hx of multiple SBOs, last in 01/2023 CT showing recurrent small-bowel obstruction NGT in place Started having gas and stool output in colostomy last night Plan as per General surgery Hyperkalemia, resolved Potassium mildly elevated 5.4 at time of presentation, currently WNL at 3.9 Likely secondary to GI losses in the setting of SBO Follow BMP Elevated creatinine, resolved Creatinine 1.68 at time of presentation, prior 1.29 on 01/30/2023 Likely secondary to GI losses and reduced p.o. intake in the setting of SBO Currently creatinine back to baseline of 1.21 after IVF Continue maintenance fluids Iqy-vjvrins-teofpkclp type 2 diabetes POC moderately well-controlled Will hold Januvia and metformin while NPO Place on sliding scale insulin Monitor POC q.6 CAD/HLD Continue to hold Plavix until pt starts diet and SBO resovles HTN Continue losartan, metoprolol Thank you for allowing us to participate in the care of this pt. Will continue to follow along with you. Quality Stroke Does the patient have a stroke diagnosis?: No VTE Prior VTE?: No VTE Risk Level:: Surgical - low VTE Device Contraindication: N/A - Device Ordered VTE Drug Contraindication: N/A - Med Ordered
[2024-06-11 19:19] LABS: Glucose, Whole Blood 94 mg/dL (60-115)
[2024-06-11 19:33] VITALS: BP 141/70; PULSE 64; RESP 18; TEMP 36.9; O2SAT 97
[2024-06-11] MEDS: Multivitamin TABLET 1 TAB PO (20:55)
[2024-06-11] MEDS: Enoxaparin Sodium 40 MG/0.4 ML SYRINGE SUBCUT (20:56)
[2024-06-11] MEDS: Metoprolol Succinate ER 100 MG TAB.ER.24H PO (20:57)
[2024-06-11] MEDS: Losartan Potassium 25 MG TABLET PO (20:57)
[2024-06-11] MEDS: Latanoprost 0.005 % Ophth Sol 2.5 ML DROPS 1 DROP EYE-BOTH (20:59)
[2024-06-11 23:27] VITALS: BP 136/66; PULSE 67; RESP 18; TEMP 36.8; O2SAT 94
[2024-06-12 03:28] VITALS: BP 145/68; PULSE 66; RESP 18; TEMP 36.7; O2SAT 97
[2024-06-12] MEDS: Pantoprazole Sodium 40 MG/10 ML VIAL IVPUSH (05:09)
[2024-06-12 07:21] LABS: Glucose, Whole Blood 78 mg/dL (60-115)
[2024-06-12 07:50] VITALS: BP 164/71; PULSE 58; RESP 16; TEMP 36.9; O2SAT 97
--- NOTE | 2024-06-12 08:28 | P.PNGS_ITS ---
Subjective Subjective Date of Service: 06/12/24 <Deandre Parrish PA-C - Last Filed: 06/12/24 09:30> 06/12/24 <Lorne Wong MD - Last Filed: 06/12/24 09:05> Patient reports: feels better, tolerating liquids well, flatus and bowel movement <NICKOLAS Weaver Last Filed: 06/12/24 09:30> Interval history: Patient is doing well today. Denies pain at rest. NG tube still in place, not currently on suction. He reports ambulating in the room. <REBECCA Weaver - Last Filed: 06/12/24 09:30> Physical Exam 2 Vital Signs: Vital Signs: Last Vital Signs Temp 98.4 F 06/12/24 07:50 Pulse 58 06/12/24 07:50 Resp 16 06/12/24 07:50 BP 164/71 H 06/12/24 07:50 Pulse Ox 97 06/12/24 07:50 O2 Del Method Room Air 06/12/24 07:50 BMI result Body Mass Index 25.3 <NICKOLAS Weaver Last Filed: 06/12/24 09:30> Const: General: comfortable and no acute distress <NICKOLAS Weaver Last Filed: 06/12/24 09:30> Orientation/consciousness: patient oriented x3 <NICKOLAS Weaver Last Filed: 06/12/24 09:30> Resp: Effort & Inspection: normal respiratory effort and able to speak in complete sentences <NICKOLAS Weaver Last Filed: 06/12/24 09:30> GI: Other: NG tube present. ostomy present <NICKOLAS Weaver Last Filed: 06/12/24 09:30> Inspection: No distended <NICKOLAS Weaver Last Filed: 06/12/24 09:30> Palpation (GI): Soft to palpation, nontender, no guarding and not rigid < NICKOLAS Weaver Last Filed: 06/12/24 09:30> Neuro: General: patient oriented x3 <NICKOLAS Weaver Last Filed: 06/12/24 09:30> Objective Data Active Medications Acetaminophen (Acetaminophen 325 Mg Tablet) 650 mg PO Q6H PRN PRN Reason: Pain, Mild 1-3,fever,headache Last Admin: 06/10/24 11:18 Dose: 650 mg Documented By: ERAN Atorvastatin Calcium (Atorvastatin Calcium 40 Mg Tablet) 40 mg PO DAILY [facility] Last Admin: 06/11/24 09:01 Dose: 40 mg Documented By: ERAN Dextrose (Dextrose 50 % 25 Gm/50 Ml Syringe) 25 gm IVPUSH Q15M PRN; Protocol PRN Reason: per Hypoglycemia Standing Ord. Enoxaparin Sodium (Enoxaparin Sodium 40 Mg/0.4 Ml Syringe) 40 mg SUBCUT Q24H [facility] Last Admin: 06/11/24 20:56 Dose: 40 mg Documented By: ADRIANA Glucose (Glucose Gel 15 Gm Gel..Gram.) 15 gm PO Q15M PRN; Protocol PRN Reason: per Hypoglycemia Standing Ord. Insulin Human Lispro (Insulin Lispro 100 Unit/Ml 3 Ml Vial) 0 unit SUBCUT QIDACHS [facility]; Protocol Last Admin: 06/12/24 07:17 Dose: Not Given Documented By: AYAD Non-Admin Reason: No Insulin Coverage Isosorbide Mononitrate (Isosorbide Mononitrate 60 Mg Tab.Er.24h) 60 mg PO DAILY [facility]; Protocol Last Admin: 06/11/24 09:00 Dose: 60 mg Documented By: ERAN Latanoprost (Latanoprost 0.005 % Ophth May 2.5 Ml Drops) 1 drop EYE-BOTH BEDTIME [facility] Last Admin: 06/11/24 20:59 Dose: 1 drop Documented By: ADRIANA Losartan Potassium (Losartan Potassium 25 Mg Tablet) 25 mg PO BEDTIME [facility]; Protocol Last Admin: 06/11/24 20:57 Dose: 25 mg Documented By: ADRIANA Metoprolol Succinate (Metoprolol Succinate Er 100 Mg Tab.Er.24h) 100 mg PO BEDTIME [facility]; Protocol Last Admin: 06/11/24 20:57 Dose: 100 mg Documented By: ADRIANA Morphine Sulfate (Morphine Sulfate 4 Mg/Ml Cartridge) 4 mg IVPUSH Q4H PRN; Protocol PRN Reason: Pain, Severe (Pain Scale 7-10) Last Admin: 06/10/24 05:10 Dose: 4 mg Documented By: JENNIFER Multivitamins/Vitamin C (Multivitamin Tablet) 1 tab PO BEDTIME [facility] Last Admin: 06/11/24 20:55 Dose: 1 tab Documented By: ADRIANA Ondansetron HCl (Ondansetron Hcl 4 Mg/2 Ml Vial) 4 mg IVPUSH Q8H PRN PRN Reason: Nausea and Vomiting Last Admin: 06/10/24 04:58 Dose: 4 mg Documented By: JENNIFER Pantoprazole Sodium (Pantoprazole Sodium 40 Mg/10 Ml Vial) 40 mg IVPUSH DAILY@0630 [facility] Last Admin: 06/12/24 05:09 Dose: 40 mg Documented By: ADRIANA Sodium Chloride (0.9 % Sodium Chloride Flush 3 Ml Syringe) 3 ml IVFLUSH QSHIFT [facility] Last Admin: 06/11/24 23:45 Dose: Not Given Documented By: ADRIANA Non-Admin Reason: IV Running <Deandre Parrish PA-C - Last Filed: 06/12/24 09:30> Labs CBC & Chem 7: 06/10/24 05:54 06/11/24 10:37 <Deandre Parrish PA-C - Last Filed: 06/12/24 09:30> Labs: Laboratory Results - last 24 hr 06/11/24 06/11/24 06/11/24 10:37 11:15 16:38 Anion Gap 13 Estim Creat Clear Calc 53.8 Estimated GFR 59 POC Glucose 103 106 Random Glucose 116 H Calcium 7.8 L D 06/11/24 06/12/24 19:15 07:15 Anion Gap Estim Creat Clear Calc Estimated GFR POC Glucose 94 78 Random Glucose Calcium <Deandre Parrish PA-C - Last Filed: 06/12/24 09:30> Procedures Date of Service Date of Service: 06/12/24 <Deandre Parrish PA-C - Last Filed: 06/12/24 09:30> 06/12/24 <Lorne Wong MD - Last Filed: 06/12/24 09:05> Progress Note: A&P Assessment and plan (1) Small bowel obstruction: Status: Acute <Deandre Parrish PA-C - Last Filed: 06/12/24 09:30> Assessment and Plan: Feels much better Passing flatus via the stoma Small amounts of stool Symptoms seems resolved Okay to DC NG tube today He looks well overall Abdomen is soft and benign Seen and examined independently <Lorne Wong MD - Last Filed: 06/12/24 09:05> Assessment and Plan: 68 year old male being followed for partial SBO. Patient is doing well, improving. No pain at rest. Patient producing flatus and bowel movement via ostomy. NG tube clamped overnight. Patient denies worsening of symptoms. NG was reattached to suction this AM for trial, minimal output upon re-evaluation. NG tube removed at bedside, patient tolerated well. will continue to trial clear diet and monitor for symptom recurrence. Continue clear liquid diet Recommend ambulation Continue with pain regimen as needed Will continue to follow <Deandre Parrish PA-C - Last Filed: 06/12/24 09:30> Time Spent With Patient Time: Total time managing care of this patient today ____ minutes. <Deandre Parrish PA-C - Last Filed: 06/12/24 09:30> Quality Stroke Does the patient have a stroke diagnosis?: No <Deandre Parrish PA-C - Last Filed: 06/12/24 09:30> VTE Prior VTE?: No <Deandre Parrish PA-C - Last Filed: 06/12/24 09:30> VTE Risk Level:: Surgical - low <Deandre Parrish PA-C - Last Filed: 06/12/24 09:30> VTE Device Contraindication: N/A - Device Ordered <Deandre Parrish PA-C - Last Filed: 06/12/24 09:30> VTE Drug Contraindication: N/A - Med Ordered <Deandre Parrish PA-C - Last Filed: 06/12/24 09:30>
--- NOTE | 2024-06-12 08:52 | HO.PM.IMPN ---
Subjective Subjective Date of Service: 06/12/24 Interval History: Reporting no pain, nausea or vomiting, Physical Exam Vital Signs: Vital Signs: Last Vital Signs Temp 98.4 F 06/12/24 07:50 Pulse 58 06/12/24 07:50 Resp 16 06/12/24 07:50 BP 164/71 H 06/12/24 07:50 Pulse Ox 97 06/12/24 07:50 O2 Del Method Room Air 06/12/24 07:50 BMI result Body Mass Index 25.3 General: AOx3, no acute distress; NGT in place with scant amount of bilious output Resp: CTA bilaterally CVS: S1, S2, RRR GI: NT, no distention. Colostomy in place with some gas and soft stool. +BS in all quadrants Skin: Warm, dry Neuro: Cranial nerves II-XII grossly intact bilaterally. Motor grossly intact bilaterally Extremities: No edema Psych: Appropriate affect Objective Data Active Medications Acetaminophen (Acetaminophen 325 Mg Tablet) 650 mg PO Q6H PRN PRN Reason: Pain, Mild 1-3,fever,headache Last Admin: 06/10/24 11:18 Dose: 650 mg Documented By: ERAN Atorvastatin Calcium (Atorvastatin Calcium 40 Mg Tablet) 40 mg PO DAILY [facility] Last Admin: 06/11/24 09:01 Dose: 40 mg Documented By: ERAN Dextrose (Dextrose 50 % 25 Gm/50 Ml Syringe) 25 gm IVPUSH Q15M PRN; Protocol PRN Reason: per Hypoglycemia Standing Ord. Enoxaparin Sodium (Enoxaparin Sodium 40 Mg/0.4 Ml Syringe) 40 mg SUBCUT Q24H [facility] Last Admin: 06/11/24 20:56 Dose: 40 mg Documented By: ADRIANA Glucose (Glucose Gel 15 Gm Gel..Gram.) 15 gm PO Q15M PRN; Protocol PRN Reason: per Hypoglycemia Standing Ord. Insulin Human Lispro (Insulin Lispro 100 Unit/Ml 3 Ml Vial) 0 unit SUBCUT QIDACHS [facility]; Protocol Last Admin: 06/12/24 07:17 Dose: Not Given Documented By: AYAD Non-Admin Reason: No Insulin Coverage Isosorbide Mononitrate (Isosorbide Mononitrate 60 Mg Tab.Er.24h) 60 mg PO DAILY [facility]; Protocol Last Admin: 06/11/24 09:00 Dose: 60 mg Documented By: ERAN Latanoprost (Latanoprost 0.005 % Ophth May 2.5 Ml Drops) 1 drop EYE-BOTH BEDTIME [facility] Last Admin: 06/11/24 20:59 Dose: 1 drop Documented By: ADRIANA Losartan Potassium (Losartan Potassium 25 Mg Tablet) 25 mg PO BEDTIME [facility]; Protocol Last Admin: 06/11/24 20:57 Dose: 25 mg Documented By: ADRIANA Metoprolol Succinate (Metoprolol Succinate Er 100 Mg Tab.Er.24h) 100 mg PO BEDTIME [facility]; Protocol Last Admin: 06/11/24 20:57 Dose: 100 mg Documented By: ADRIANA Morphine Sulfate (Morphine Sulfate 4 Mg/Ml Cartridge) 4 mg IVPUSH Q4H PRN; Protocol PRN Reason: Pain, Severe (Pain Scale 7-10) Last Admin: 06/10/24 05:10 Dose: 4 mg Documented By: JENNIFER Multivitamins/Vitamin C (Multivitamin Tablet) 1 tab PO BEDTIME [facility] Last Admin: 06/11/24 20:55 Dose: 1 tab Documented By: ADRIANA Ondansetron HCl (Ondansetron Hcl 4 Mg/2 Ml Vial) 4 mg IVPUSH Q8H PRN PRN Reason: Nausea and Vomiting Last Admin: 06/10/24 04:58 Dose: 4 mg Documented By: JENNIFER Pantoprazole Sodium (Pantoprazole Sodium 40 Mg/10 Ml Vial) 40 mg IVPUSH DAILY@0630 [facility] Last Admin: 06/12/24 05:09 Dose: 40 mg Documented By: ADRIANA Sodium Chloride (0.9 % Sodium Chloride Flush 3 Ml Syringe) 3 ml IVFLUSH QSINFT [facility] Last Admin: 06/11/24 23:45 Dose: Not Given Documented By: ADRIANA Non-Admin Reason: IV Running Labs 06/10/24 05:54 06/11/24 10:37 Labs: Laboratory Results - last 24 hr 06/11/24 06/11/24 06/11/24 10:37 11:15 16:38 Anion Gap 13 Estim Creat Clear Calc 53.8 Estimated GFR 59 POC Glucose 103 106 Random Glucose 116 H Calcium 7.8 L D 06/11/24 06/12/24 19:15 07:15 Anion Gap Estim Creat Clear Calc Estimated GFR POC Glucose 94 78 Random Glucose Calcium Assessment and Plan (1) Small bowel obstruction: Status: Acute Plan Pt is a 68-year-old male with a PMH significant for rectal CA s/p APR in 2008 with multiple prior surgeries, colostomy in place, hx of prior SBO (last in 01/2023), HTN, non-insulin dependent diabetes, and CAD s/p CABG on Plavix who was admitted to the hospital under General surgery for SBO. Hospitalist consult for routine medical management. SBO, hx of multiple SBOs, last in 01/2023 management per surgery Hyperkalemia, resolved Elevated creatinine, MUNA Creatinine 1.68 at time of presentation, now 1.21 Uff-dgcxcow-otxfifcwj type 2 diabetes POC moderately well-controlled Will hold Januvia and metformin while NPO Place on sliding scale insulin Monitor POC q.6 CAD/HLD Continue to hold Plavix until pt starts diet and SBO resovles HTN Continue losartan, metoprolol Thank you for allowing us to participate in the care of this pt. Will continue to follow along with you. Resume home meds upon dc Will follow on PRN basis Quality Stroke Does the patient have a stroke diagnosis?: No VTE Prior VTE?: No VTE Risk Level:: Surgical - low VTE Device Contraindication: N/A - Device Ordered VTE Drug Contraindication: N/A - Med Ordered
[2024-06-12 09:40] VITALS: BP 170/79
[2024-06-12] MEDS: Atorvastatin Calcium 40 MG TABLET PO (09:40)
[2024-06-12] MEDS: Isosorbide Mononitrate 60 MG TAB.ER.24H PO (09:40)
[2024-06-12] MEDS: 0.9 % Sodium Chloride Flush 3 ML SYRINGE IVFLUSH ×3 (09:46→20:29)
[2024-06-12 11:37] LABS: Glucose, Whole Blood 109 mg/dL (60-115)
[2024-06-12 12:00] VITALS: BP 119/56; PULSE 53; RESP 16; TEMP 36.8; O2SAT 95
[2024-06-12 14:58] VITALS: BP 123/59; PULSE 50; RESP 16; TEMP 36.6; O2SAT 96
--- NOTE | 2024-06-12 15:04 | MHC.CM.PN ---
pts not medically ready for dc dc plan remains home no services
[2024-06-12 16:20] LABS: Glucose, Whole Blood 173 mg/dL (60-115)
[2024-06-12] MEDS: Insulin Lispro 100 UNIT/ML 3 ML VIAL SUBCUT ×2 (17:27→20:27)
[2024-06-12 20:00] VITALS: BP 130/62; PULSE 66; RESP 18; TEMP 36.7; O2SAT 98
[2024-06-12 20:13] LABS: Glucose, Whole Blood 185 mg/dL (60-115)
[2024-06-12] MEDS: Enoxaparin Sodium 40 MG/0.4 ML SYRINGE SUBCUT (20:28)
[2024-06-12] MEDS: Metoprolol Succinate ER 100 MG TAB.ER.24H PO (20:28)
[2024-06-12] MEDS: Multivitamin TABLET 1 TAB PO (20:28)
[2024-06-12] MEDS: Losartan Potassium 25 MG TABLET PO (20:28)
[2024-06-12] MEDS: Latanoprost 0.005 % Ophth Sol 2.5 ML DROPS 1 DROP EYE-BOTH (20:28)
[2024-06-13 03:29] VITALS: BP 144/67; PULSE 62; RESP 18; TEMP 36.8; O2SAT 98
[2024-06-13] MEDS: Pantoprazole Sodium 40 MG/10 ML VIAL IVPUSH (05:29)
[2024-06-13 07:08] VITALS: BP 142/65; PULSE 52; RESP 16; TEMP 36.9; O2SAT 96
[2024-06-13 07:17] LABS: Glucose, Whole Blood 93 mg/dL (60-115)
--- NOTE | 2024-06-13 07:48 | P.PNGS_ITS ---
Subjective Subjective Date of Service: 06/13/24 <Deandre Parrish PA-C - Last Filed: 06/13/24 08:28> 06/13/24 <Lorne Wong MD - Last Filed: 06/13/24 07:54> Patient reports: feels better, tolerating a regular diet, flatus and bowel movement <NICKOLAS Weaver Last Filed: 06/13/24 08:28> Interval history: Patient doing well. Reports improvement from yesterday. Pain has improved. Passing bowel movements and flatus through ostomy site. He is tolerating full diet without worsening of symptoms. Reports ambulation throughout <NICKOLAS Weaver Last Filed: 06/13/24 08:28> Physical Exam 2 Vital Signs: Vital Signs: Last Vital Signs Temp 98.4 F 06/13/24 07:08 Pulse 52 06/13/24 07:08 Resp 16 06/13/24 07:08 BP 142/65 H 06/13/24 07:08 Pulse Ox 96 06/13/24 07:08 O2 Del Method Room Air 06/13/24 07:08 BMI result Body Mass Index 25.3 <Deandre Parrish PA-C - Last Filed: 06/13/24 08:28> Resp: Effort & Inspection: normal respiratory effort <NICKOLAS Weaver Last Filed: 06/13/24 08:28> GI: Other: ostomy site present, large amounts of stool in bag <NICKOLAS Weaver Last Filed: 06/13/24 08:28> Inspection: No distended <NICKOLAS Weaver Last Filed: 06/13/24 08:28> Palpation (GI): Soft to palpation, nontender, no guarding and not rigid < NICKOLAS Weaver Last Filed: 06/13/24 08:28> Percussion: Yes normal to percussion <NICKOLAS Weaver Last Filed: 06/13/24 08:28> Objective Data Active Medications Acetaminophen (Acetaminophen 325 Mg Tablet) 650 mg PO Q6H PRN PRN Reason: Pain, Mild 1-3,fever,headache Last Admin: 06/10/24 11:18 Dose: 650 mg Documented By: ERAN Atorvastatin Calcium (Atorvastatin Calcium 40 Mg Tablet) 40 mg PO DAILY [facility] Last Admin: 06/12/24 09:40 Dose: 40 mg Documented By: AYAD Dextrose (Dextrose 50 % 25 Gm/50 Ml Syringe) 25 gm IVPUSH Q15M PRN; Protocol PRN Reason: per Hypoglycemia Standing Ord. Enoxaparin Sodium (Enoxaparin Sodium 40 Mg/0.4 Ml Syringe) 40 mg SUBCUT Q24H [facility] Last Admin: 06/12/24 20:28 Dose: 40 mg Documented By: TAY Glucose (Glucose Gel 15 Gm Gel..Gram.) 15 gm PO Q15M PRN; Protocol PRN Reason: per Hypoglycemia Standing Ord. Insulin Human Lispro (Insulin Lispro 100 Unit/Ml 3 Ml Vial) 0 unit SUBCUT QIDACHS [facility]; Protocol Last Admin: 06/13/24 07:18 Dose: Not Given Documented By: BRENNA Non-Admin Reason: No Insulin Coverage Isosorbide Mononitrate (Isosorbide Mononitrate 60 Mg Tab.Er.24h) 60 mg PO DAILY [facility]; Protocol Last Admin: 06/12/24 09:40 Dose: 60 mg Documented By: AYAD Latanoprost (Latanoprost 0.005 % Ophth May 2.5 Ml Drops) 1 drop EYE-BOTH BEDTIME [facility] Last Admin: 06/12/24 20:28 Dose: 1 drop Documented By: TAY Losartan Potassium (Losartan Potassium 25 Mg Tablet) 25 mg PO BEDTIME [facility]; Protocol Last Admin: 06/12/24 20:28 Dose: 25 mg Documented By: TAY Metoprolol Succinate (Metoprolol Succinate Er 100 Mg Tab.Er.24h) 100 mg PO BEDTIME [facility]; Protocol Last Admin: 06/12/24 20:28 Dose: 100 mg Documented By: TAY Morphine Sulfate (Morphine Sulfate 4 Mg/Ml Cartridge) 4 mg IVPUSH Q4H PRN; Protocol PRN Reason: Pain, Severe (Pain Scale 7-10) Last Admin: 06/10/24 05:10 Dose: 4 mg Documented By: JENNIFER Multivitamins/Vitamin C (Multivitamin Tablet) 1 tab PO BEDTIME [facility] Last Admin: 06/12/24 20:28 Dose: 1 tab Documented By: TAY Ondansetron HCl (Ondansetron Hcl 4 Mg/2 Ml Vial) 4 mg IVPUSH Q8H PRN PRN Reason: Nausea and Vomiting Last Admin: 06/10/24 04:58 Dose: 4 mg Documented By: JENNIFER Sodium Chloride (0.9 % Sodium Chloride Flush 3 Ml Syringe) 3 ml IVFLUSH QSHIFT [facility] Last Admin: 06/12/24 20:29 Dose: 3 ml Documented By: TAY <Deandre Parrish PA-C - Last Filed: 06/13/24 08:28> Labs CBC & Chem 7: 06/10/24 05:54 06/11/24 10:37 <Deandre Parrish PA-C - Last Filed: 06/13/24 08:28> Labs: Laboratory Results - last 24 hr 06/12/24 06/12/24 06/12/24 11:32 16:14 20:09 POC Glucose 109 173 H 185 H 06/13/24 07:12 POC Glucose 93 <Deandre Parrish PA-C - Last Filed: 06/13/24 08:28> Procedures Date of Service Date of Service: 06/13/24 <Deandre Parrish PA-C - Last Filed: 06/13/24 08:28> 06/13/24 <Lorne Wong MD - Last Filed: 06/13/24 07:54> Progress Note: A&P Assessment and plan (1) Small bowel obstruction: Status: Acute <Deandre Parrish PA-C - Last Filed: 06/13/24 08:28> Assessment and Plan: Feels well Had a good night Denies abdominal pain Passing flatus and stools via the stoma Tolerating diet No nausea or vomiting Abdomen is soft and benign He says he is ready to be discharged Okay to [facility] home this morning Seen and examined independently <Lorne Wong MD - Last Filed: 06/13/24 07:54> Time Spent With Patient Time: Total time managing care of this patient today ____ minutes. <Deandre Parrish PA-C - Last Filed: 06/13/24 08:28> Quality Stroke Does the patient have a stroke diagnosis?: No <Deandre Parrish PA-C - Last Filed: 06/13/24 08:28> VTE Prior VTE?: No <Deandre Parrish PA-C - Last Filed: 06/13/24 08:28> VTE Risk Level:: Surgical - low <Deandre Parrish PA-C - Last Filed: 06/13/24 08:28> VTE Device Contraindication: N/A - Device Ordered <Deandre Parrish PA-C - Last Filed: 06/13/24 08:28> VTE Drug Contraindication: N/A - Med Ordered <Deandre Parrish PA-C - Last Filed: 06/13/24 08:28>
[2024-06-13] MEDS: Atorvastatin Calcium 40 MG TABLET PO (08:03)
[2024-06-13] MEDS: Isosorbide Mononitrate 60 MG TAB.ER.24H PO (08:03)
[2024-06-13] MEDS: 0.9 % Sodium Chloride Flush 3 ML SYRINGE IVFLUSH (08:05)
--- NOTE | 2024-06-13 08:38 | MHC.CM.PN ---
pt dcd home self care
--- NOTE | 2024-06-13 08:49 | P.DS_ITS ---
DS: Providers Provider Date of Service: 06/13/24 <NICKOLAS Weaver Last Filed: 06/13/24 14:09> Date of admission: 06/10/24 00:08 <NICKOLAS Weaver Last Filed: 06/13/24 14:09> Date of discharge: 06/13/24 <NICKOLAS Weaver Last Filed: 06/13/24 14:09> Primary care physician: Julio Cesar Swan MD <NICKOLAS Weaver Last Filed: 06/13/24 14:09> Admitting clinician: Yakelin Leger <NICKOLAS Weaver Last Filed: 06/13/24 14:09> Attending physician on admission: Yakelin Leger <NICKOLAS Weaver Last Filed: 06/13/24 14:09> Consults: 06/10/24 05:22 Consult to Hospitalist Routine Comment: Consulting Provider: [facility] Hospitalists Reason For Exam: diabetes, HTN <NICKOLAS Weaver Last Filed: 06/13/24 14:09> Attending physician on discharge: Lorne Wong <NICKOLAS Weaver Last Filed: 06/13/24 14:09> DS: Diagnosis Discharge Diagnosis (1) Small bowel obstruction: Status: Acute <NICKOLAS Weaver Last Filed: 06/13/24 14:09> DS: Summary Hospital Course Hospital Course: Presenting HPI: 68 year old male who has a long-term history of rectal cancer s/p resection with ostomy creation presented to the ED on 06/09/24 who consulted general surgery, where Dr. Leger admitted him to [facility] for SBO. He has had several partial small bowel obstructions the last of which was about a year ago which have resolved with conservative care NPO NG tube decompression IV fluid. Yesterday came in feeling not so good in the night in the morning but then things got worse where he felt like abdominal pain that was sharp and nauseous and wanting to throw up. He recognized this is his symptoms for his obstruction and came to the emergency room. He has his end colostomy in the left lower quadrant area and he said that it has stopped getting filled with stool and gas and this worried him. He was admitted to the surgical department NG-tube placed with bilious output IV fluid resuscitation and by this morning is feeling much better. By the afternoon he has stool coming into his bag. In the NG-tube output is decreased. Hospital Course: Patient was found to have some small bowel dilation on CT scan. It was decided that we would proceed conservative nonoperative management including NG tube decompression, IV fluids and serial abdominal examinations. Day to day patient continued to improve, pain was reduced, ostomy output slowly returned and NG tube output decreased. On 06/12/2024 the patient's NG tube was clamped, and the patient did not develop any worsening of symptoms, NG tube was removed. Clear liquid diet was trialed for which the patient tolerated well and was able to progress to full diet overnight which was also well tolerated. Patient's abdominal exam was benign and bowel function had returned to baseline. On the day of discharge patient was tolerating full diet. We discussed plans for discharge patient felt ready to discharge. We discussed return precautions. Patient was discharged in stable condition <Deandre Parrish PA-C - Last Filed: 06/13/24 14:09> Status at Discharge Functional status at discharge: independent ambulation <Deandre Parrish PA-C - Last Filed: 06/13/24 14:09> Overall status at discharge: patient is back to baseline <NICKOLAS Weaver Last Filed: 06/13/24 14:09> Time Attestation Discharge Coordination Time (in mins): 30 min <Lorne Wong MD - Last Filed: 06/13/24 08:51> Quality: Safe Use of Opioids Does Pt have an Active Cancer Diagnosis on the Problem List?: No <Lorne Wong MD - Last Filed: 06/13/24 08:51> Quality: Stroke Does the patient have a stroke diagnosis?: No <Lorne Wong MD - Last Filed: 06/13/24 08:51> Physical Exam Vital Signs: Vital Signs: Last Vital Signs Temp 98.4 F 06/13/24 07:08 Pulse 52 06/13/24 07:08 Resp 16 06/13/24 07:08 BP 142/65 H 06/13/24 07:08 Pulse Ox 96 06/13/24 07:08 O2 Del Method Room Air 06/13/24 07:08 BMI result Body Mass Index 25.3 <NICKOLAS Weaver Last Filed: 06/13/24 14:09> Const: General: comfortable and no acute distress <NCIKOLAS Weaver Last Filed: 06/13/24 14:09> Orientation/consciousness: patient oriented x3 <NICKOLAS Weaver Last Filed: 06/13/24 14:09> Resp: Effort & Inspection: normal respiratory effort and able to speak in complete sentences <NICKOLAS Weaver Last Filed: 06/13/24 14:09> GI: Other: ostomy site present LLQ, full of stool <Deandre Parrish PA-C - Last Filed: 06/13/24 14:09> Inspection: No distended <NICKOLAS Weaver Last Filed: 06/13/24 14:09> Palpation (GI): Soft to palpation, not firm, nontender and no guarding <NICKOLAS Weaver Last Filed: 06/13/24 14:09> Percussion: Yes normal to percussion <Deandre Parrish PA-C - Last Filed: 06/13/24 14:09> Neuro: General: patient oriented x3 <NICKOLAS Weaver Last Filed: 06/13/24 14:09> DS: Data Data Completed and Pending Labs on day of discharge: Laboratory Results - last 24 hr 06/12/24 06/12/24 06/12/24 11:32 16:14 20:09 POC Glucose 109 173 H 185 H 06/13/24 07:12 POC Glucose 93 <Deandre Parrish PA-C - Last Filed: 06/13/24 14:09> Discharge Plan Discharge Anticipated Discharge Date/Time: 06/13/24 13:44 <Deandre Parrish PA-C - Last Filed: 06/13/24 14:09> Patient Disposition: Home, Self-Care <Deandre Parrish PA-C - Last Filed: 06/13/24 14:09> Discharge Diagnosis: Partial Small Bowel Obstruction <Deandre Parrish PA-C - Last Filed: 06/13/24 14:09> Partial Small Bowel Obstruction <Lorne Wong MD - Last Filed: 06/13/24 08:51> Referrals: Julio Cesar Swan MD [Primary Care Provider] - 1 Week <Deandre Parrish PA-C - Last Filed: 06/13/24 14:09> Discharge Medications: Continued atorvastatin 40 mg tablet 1 tab PO DAILY clopidogrel 75 mg tablet 1 tab PO DAILY metformin 1,000 mg tablet 1 tab PO BIDWM Januvia 100 mg tablet 1 tab PO BEDTIME latanoprost 0.005 % drops 1 drp ophthalmic (eye) BEDTIME multivitamin Tablet 1 tab PO BEDTIME PreserVision AREDS [id number] lnlt-db-ualh Capsule 1 cap PO BID metoprolol succinate 100 mg tablet extended release 24 hr 100 mg PO BEDTIME isosorbide mononitrate 60 mg tablet extended release 24 hr 60 mg PO DAILY losartan 25 mg tablet 25 mg PO BEDTIME <Deandre Parrish PA-C - Last Filed: 06/13/24 14:09> Discharge Orders: Discharge Order (Routine); Ordered 06/13/24 Ordered By: Deandre Parrish <NICKOLAS Weaver Last Filed: 06/13/24 14:09> Diet: Diabetic diet <NICKOLAS Weaver Last Filed: 06/13/24 14:09> Diabetic diet <Lorne Wong MD - Last Filed: 06/13/24 08:51> Activity on Discharge: No Restrictions <Deandre Parrish PA-C - Last Filed: 06/13/24 14:09> No Restrictions <Lorne Wong MD - Last Filed: 06/13/24 08:51> Stand Alone Forms: Patient Portal Discharge page <NICKOLAS Weaver Last Filed: 06/13/24 14:09> Print Language: Bots[place] <NICKOLAS Weaver Last Filed: 06/13/24 14:09> Activity Restrictions/Additional Instructions: You may gradually return to normal activities. If your symptoms return, including abdominal pain, nausea, vomiting please return to the emergency department <NICKOLAS Weaver Last Filed: 06/13/24 14:09> Care Plan Goals: return to baseline, resume normal daily activities <NICKOLAS Weaver Last Filed: 06/13/24 14:09> Health Concerns: Partial small bowel obstruction MUNA non insulin dependant T2DM CAD Rectal cancer s/p resection w/ ostomy <NICKOLAS Weaver Last Filed: 06/13/24 14:09> Plan of Treatment: s/p NG tube decompression of partial SBO. Please follow up with your primary care, you do not have to follow up with [facility] general surgery <Deandre Parrish PA-C - Last Filed: 06/13/24 14:09> Assessment: Doing well, improving back to baseline <Deandre Parrish PA-C - Last Filed: 06/13/24 14:09> Patient Instructions: Bowel Obstruction (DC) <Deandre Parrish PA-C - Last Filed: 06/13/24 14:09> Discharge Date/Time: 06/13/24 11:38 <NICKOLAS Weaver Last Filed: 06/13/24 14:09>
--- NOTE | 2024-06-13 09:07 | P.PNIM_ITS ---
Subjective Subjective Date of Service: 06/13/24 Interval History: Reporting no pain, nausea or vomiting, and tolerating regular diet Physical Exam 2 Vital Signs: Vital Signs: Last Vital Signs Temp 98.4 F 06/13/24 07:08 Pulse 52 06/13/24 07:08 Resp 16 06/13/24 07:08 BP 142/65 H 06/13/24 07:08 Pulse Ox 96 06/13/24 07:08 O2 Del Method Room Air 06/13/24 07:08 BMI result Body Mass Index 25.3 General: AOx3, no acute distress; NGT in place with scant amount of bilious output Resp: CTA bilaterally CVS: S1, S2, RRR GI: NT, no distention. Colostomy in place with some gas and soft stool. +BS in all quadrants Skin: Warm, dry Neuro: Cranial nerves II-XII grossly intact bilaterally. Motor grossly intact bilaterally Extremities: No edema Psych: Appropriate affect Objective Data Active Medications Acetaminophen (Acetaminophen 325 Mg Tablet) 650 mg PO Q6H PRN PRN Reason: Pain, Mild 1-3,fever,headache Last Admin: 06/10/24 11:18 Dose: 650 mg Documented By: ERAN Atorvastatin Calcium (Atorvastatin Calcium 40 Mg Tablet) 40 mg PO DAILY [facility] Last Admin: 06/13/24 08:03 Dose: 40 mg Documented By: BRENNA Dextrose (Dextrose 50 % 25 Gm/50 Ml Syringe) 25 gm IVPUSH Q15M PRN; Protocol PRN Reason: per Hypoglycemia Standing Ord. Enoxaparin Sodium (Enoxaparin Sodium 40 Mg/0.4 Ml Syringe) 40 mg SUBCUT Q24H [facility] Last Admin: 06/12/24 20:28 Dose: 40 mg Documented By: TAY Glucose (Glucose Gel 15 Gm Gel..Gram.) 15 gm PO Q15M PRN; Protocol PRN Reason: per Hypoglycemia Standing Ord. Insulin Human Lispro (Insulin Lispro 100 Unit/Ml 3 Ml Vial) 0 unit SUBCUT QIDACHS [facility]; Protocol Last Admin: 06/13/24 07:18 Dose: Not Given Documented By: BRENNA Non-Admin Reason: No Insulin Coverage Isosorbide Mononitrate (Isosorbide Mononitrate 60 Mg Tab.Er.24h) 60 mg PO DAILY [facility]; Protocol Last Admin: 06/13/24 08:03 Dose: 60 mg Documented By: BRENNA Latanoprost (Latanoprost 0.005 % Ophth May 2.5 Ml Drops) 1 drop EYE-BOTH BEDTIME [facility] Last Admin: 06/12/24 20:28 Dose: 1 drop Documented By: TAY Losartan Potassium (Losartan Potassium 25 Mg Tablet) 25 mg PO BEDTIME [facility]; Protocol Last Admin: 06/12/24 20:28 Dose: 25 mg Documented By: TAY Metoprolol Succinate (Metoprolol Succinate Er 100 Mg Tab.Er.24h) 100 mg PO BEDTIME [facility]; Protocol Last Admin: 06/12/24 20:28 Dose: 100 mg Documented By: TAY Morphine Sulfate (Morphine Sulfate 4 Mg/Ml Cartridge) 4 mg IVPUSH Q4H PRN; Protocol PRN Reason: Pain, Severe (Pain Scale 7-10) Last Admin: 06/10/24 05:10 Dose: 4 mg Documented By: JENNIFER Multivitamins/Vitamin C (Multivitamin Tablet) 1 tab PO BEDTIME [facility] Last Admin: 06/12/24 20:28 Dose: 1 tab Documented By: TAY Ondansetron HCl (Ondansetron Hcl 4 Mg/2 Ml Vial) 4 mg IVPUSH Q8H PRN PRN Reason: Nausea and Vomiting Last Admin: 06/10/24 04:58 Dose: 4 mg Documented By: JENNIFER Sodium Chloride (0.9 % Sodium Chloride Flush 3 Ml Syringe) [facility] Last Admin: 06/13/24 08:05 Dose: 3 ml Documented By: BRENNA Labs 06/10/24 05:54 06/11/24 10:37 Labs: Laboratory Results - last 24 hr 06/12/24 06/12/24 06/12/24 11:32 16:14 20:09 POC Glucose 109 173 H 185 H 06/13/24 07:12 POC Glucose 93 Assessment and Plan (1) Small bowel obstruction: Status: Acute Plan Pt is a 68-year-old male with a PMH significant for rectal CA s/p APR in 2008 with multiple prior surgeries, colostomy in place, hx of prior SBO (last in 01/2023), HTN, non-insulin dependent diabetes, and CAD s/p CABG on Plavix who was admitted to the hospital under General surgery for SBO. Hospitalist consult for routine medical management. SBO, hx of multiple SBOs, last in 01/2023, clinically resoved and tolerating regular diet. management per surgery Hyperkalemia, resolved Elevated creatinine, MUNA Creatinine 1.68 at time of presentation, now 1.21 [id number]-[id number]-[id number] type 2 diabetes POC moderately well-controlled Will hold Januvia and metformin while NPO Place on sliding scale insulin Monitor POC q.6 CAD/HLD Continue to hold Plavix until pt starts diet and SBO resovles HTN Continue losartan, metoprolol Thank you for allowing us to participate in the care of this pt. Will continue to follow along with you. Resume home meds upon dc, singing off at this time Quality Stroke Does the patient have a stroke diagnosis?: No VTE Prior VTE?: No VTE Risk Level:: Surgical - low VTE Device Contraindication: N/A - Device Ordered VTE Drug Contraindication: N/A - Med Ordered
[2024-06-13 11:36] VITALS: BP 147/69; PULSE 64; RESP 16; TEMP 37.3; O2SAT 98
== END 2024-06-13 11:38 | disposition home or self-care (01) | DRG 247 ==
LOC: HO.ED 23:40 → HO.EDOVER 06-10 00:16 → HO.S3 06-10 00:37
PROVIDERS: Nurse Practitioner Family; Student in an Organized Health Care Education/Training Program; Admitting Provider Surgery; Emergency Provider Emergency Medicine; PCP Internal Medicine; Visit Provider Surgery
DX: K56.600 Partial intestinal obstruction, unspecified as to cause (principal); N17.9 Acute kidney failure, unspecified; I25.10 Atherosclerotic heart disease of native coronary artery without angina pectoris; E11.9 Type 2 diabetes mellitus without complications; E87.5 Hyperkalemia; E78.5 Hyperlipidemia, unspecified; I10 Essential (primary) hypertension; Z93.3 Colostomy status; Z95.1 Presence of aortocoronary bypass graft; Z85.048 Personal history of other malignant neoplasm of rectum, rectosigmoid junction, and anus; Z79.02 Long term (current) use of antithrombotics/antiplatelets; Z79.84 Long term (current) use of oral hypoglycemic drugs; Z79.899 Other long term (current) drug therapy
CPT/HCPCS: 36415; 71045; 74177; 80048; 80053; 81001; 82947; 83605; 83690; 85025; 93005; 99285; J1650; J2270; J2405; J2470; Q9967

== ENCOUNTER → 2024-06-09 17:40 | Outpatient (BNV) | payer BC, SELFPAY | PROVIDERS: Emergency Provider Emergency Medicine; PCP Internal Medicine; Visit Provider Radiology Neuroradiology | DX: K56.609 Unspecified intestinal obstruction, unspecified as to partial versus complete obstruction (principal); K80.20 Calculus of gallbladder without cholecystitis without obstruction; N20.0 Calculus of kidney | CPT/HCPCS: 74177 ==

== ENCOUNTER → 2024-06-09 17:45 | Outpatient (BNV) | payer BC, SELFPAY | PROVIDERS: Admitting Provider Surgery; Emergency Provider Emergency Medicine; PCP Internal Medicine; Visit Provider Internal Medicine Cardiovascular Disease | DX: R00.1 Bradycardia, unspecified (principal) | CPT/HCPCS: 93010 ==

== ENCOUNTER 2024-06-10 00:08 | Outpatient (BNV) | payer BC, SELFPAY | END 2024-06-10 02:00 | PROVIDERS: Admitting Provider Surgery; Emergency Provider Emergency Medicine; PCP Internal Medicine; Visit Provider Radiology Neuroradiology | DX: Z93.4 Other artificial openings of gastrointestinal tract status (principal) | CPT/HCPCS: 71045 ==

== ENCOUNTER → 2024-06-10 00:08 | Outpatient (BNV) | payer BC, SELFPAY | PROVIDERS: Admitting Provider Surgery; Emergency Provider Emergency Medicine; PCP Internal Medicine; Visit Provider Student in an Organized Health Care Education/Training Program | DX: K56.609 Unspecified intestinal obstruction, unspecified as to partial versus complete obstruction (principal) | CPT/HCPCS: 99222; 99232 ==

== ENCOUNTER → 2024-06-10 00:08 | Outpatient (BNV) | payer BC, SELFPAY | PROVIDERS: Admitting Provider Surgery; Emergency Provider Emergency Medicine; PCP Internal Medicine; Visit Provider Surgery | DX: K56.609 Unspecified intestinal obstruction, unspecified as to partial versus complete obstruction (principal) | CPT/HCPCS: 99223; 99232 ==